=== PATIENT | female | born 1970 | race Caucasian/White ===

== ENCOUNTER → 2022-01-12 | Outpatient (CLI) | payer OTHER, SELFPAY | END | disposition home or self-care (01) | LOC: RAD.FUTURE 17:03 | PROVIDERS: PCP Family Medicine; Visit Provider Specialist | DX: J45.50 Severe persistent asthma, uncomplicated (principal) ==

== ENCOUNTER → 2022-04-13 | Outpatient (CLI) | payer OTHER, SELFPAY ==
[2022-04-13 12:40] LABS: Absolute Lymphocyte Count 0.55 X10^3/uL (0.83-4.51); Absolute Neutrophil Count 2.3 X10^3/uL (2.0-7.7); Basophil# 0.05 X10^3/uL; Basophil% 1.4 % (0-1); Eosinophil# 0.22 X10^3/uL; Eosinophils% 6.1 % (0-5); Hemoglobin 7.4 g/dL (12.0-15.0); Lymphocyte # 0.55 X10^3/ul (0.83-4.51); Lymphocyte % 15.3 % (19-41); Mean Corp Hgb Conc 25.5 g/dL (32-36); Mean Corpuscular Hgb 20.1 pg (27.0-32.0); Mean Corpuscular Volume 78.6 fL (81-99); Mean Platelet Vol. 10.6 fl (6.2-12.0); Monocyte# 0.47 X10^3/uL; Monocyte% 13.1 % (0-10); NRBC Flagged by Analyzer 0 % (0-5); Neutrophil % 63.8 % (47-70); POSITIVE DIFFERENTIAL YES; POSITIVE MORPHOLOGY YES; Platelet Count 166 K/mm3 (150-450); RBC Distribution Width CV 21.3 % (11.6-14.6); RBC Distribution Width SD 58.6 fl (35.1-43.9); Red Blood Count 3.69 M/mm3 (4.2-5.4); White Blood Count 3.6 K/mm3 (4.4-11.0)
[2022-04-13 12:52] LABS: Vitamin B12 302 pg/mL (211-911); Vitamin D,25 Hydroxy 14.9 ng/mL
[2022-04-13 13:00] LABS: Differential Indicated SCAN CRITERIA MET
[2022-04-13 13:14] LABS: ALB/GLOB Ratio 0.7 RATIO (0.9-2.4); AST(SGOT) 37 U/L (15-37); Alanine Aminotransfer ALT/SGPT 21 U/L (13-56); Alkaline Phosphatase 116 U/L (45-117); Anion Gap 8 (5-15); BUN 7 mg/dL (7-18); BUN/Creat Ratio 8.8 RATIO (10-20); CPK Total, Creatine Kinase 27 U/L (26-192); Calcium,Total 8.4 mg/dL (8.5-10.1); Chloride 104 mmol/L (98-107); Cholesterol 135 mg/dL (200); EST Glomerular Filtration Rate 80 mL/min (>60); Est Glom Filt Rate - Afr Amer 97 mL/min (>60); Globulin 4.1 g/dL (2.2-4.2); Glucose 94 mg/dL (74-106); High Density Lipoprotein 56 mg/dL; Magnesium 1.5 mg/dL (1.6-2.6); Potassium 3.9 mmol/L (3.5-5.1); Protein, Total 7.1 g/dL (6.4-8.2); Sodium Level 139 mmol/L (136-145); T4 Free Direct 0.91 ng/dL (0.76-1.46); Thyroid Stim Hormone (TSH) 5.52 uIU/mL (0.358-3.74); Triglycerides 55 mg/dL; Very Low Density Lipoprotein 11 mg/dL (5-40)
[2022-04-13 13:17] LABS: Anisocytosis 2+; Differential Comment SCANNED; Hypochromasia 2+; Macrocytosis 1+; Microcytosis 1+
[2022-04-14 07:21] LABS: Erythrocyte Sedimentation Rate 12 mm/hr (0-30)
[2022-04-14 14:04] LABS: Ferritin 10 ng/mL (8-252); Iron 17 ug/dL (50-170)
[2022-04-15 09:45] LABS: Pathologist Review Reviewed
== END | disposition home or self-care (01) ==
LOC: BFHLAB 09:54
PROVIDERS: PCP Family Medicine; Visit Provider Family Medicine
DX: Z00.00 Encounter for general adult medical examination without abnormal findings (principal); R20.2 Paresthesia of skin; R53.82 Chronic fatigue, unspecified; R25.2 Cramp and spasm; E55.9 Vitamin D deficiency, unspecified
CPT/HCPCS: 36415; 80053; 80061; 82306; 82550; 82607; 82728; 83540; 83735; 84439; 84443; 85025; 85652

== ENCOUNTER → 2022-06-15 | Outpatient (CLI) | payer OTHER, SELFPAY ==
[2022-06-15 18:23] LABS: Ferritin 46 ng/mL (8-252); Iron 12 ug/dL (50-170)
== END | disposition home or self-care (01) ==
LOC: BFHLAB 15:32
PROVIDERS: PCP Family Medicine; Referring Provider Family Medicine; Visit Provider Family Medicine
DX: D64.9 Anemia, unspecified (principal)
CPT/HCPCS: 36415; 82728; 83540

== ENCOUNTER → 2022-06-16 | Outpatient (CLI) | payer OTHER, SELFPAY ==
[2022-06-16 17:58] LABS: Absolute Lymphocyte Count 0.54 X10^3/uL (0.83-4.51); Absolute Neutrophil Count 2.9 X10^3/uL (2.0-7.7); Basophil# 0.02 X10^3/uL; Basophil% 0.5 % (0-1); Eosinophil# 0.11 X10^3/uL; Eosinophils% 2.5 % (0-5); Hematocrit 27.9 % (37-47); Hemoglobin 7.7 g/dL (12.0-15.0); Lymphocyte # 0.54 X10^3/ul (0.83-4.51); Lymphocyte % 12.2 % (19-41); Mean Corp Hgb Conc 27.6 g/dL (32-36); Mean Corpuscular Hgb 21.4 pg (27.0-32.0); Mean Corpuscular Volume 77.5 fL (81-99); Monocyte# 0.87 X10^3/uL; Monocyte% 19.6 % (0-10); NRBC Flagged by Analyzer 0.7 % (0-5); Neutrophil # 2.86 X10^3/uL (2.7-7.7); Neutrophil % 64.3 % (47-70); POSITIVE COUNT YES; POSITIVE DIFFERENTIAL YES; POSITIVE MORPHOLOGY YES; Platelet Count 85 K/mm3 (150-450); RBC Distribution Width CV 22.5 % (11.6-14.6); RBC Distribution Width SD 61.3 fl (35.1-43.9); White Blood Count 4.4 K/mm3 (4.4-11.0)
[2022-06-16 18:12] LABS: Anisocytosis 2+; Differential Comment SCANNED; Differential Indicated SCAN CRITERIA MET
[2022-06-16 18:13] LABS: Microcytosis 1+; Polychromasia RARE
[2022-06-16 18:15] LABS: Vitamin B12 299 pg/mL (211-911)
== END | disposition home or self-care (01) ==
LOC: BFHLAB 15:38
PROVIDERS: PCP Family Medicine; Referring Provider Family Medicine; Visit Provider Family Medicine
DX: D64.9 Anemia, unspecified (principal); R79.89 Other specified abnormal findings of blood chemistry
CPT/HCPCS: 36415; 82607; 84443; 85025

== ENCOUNTER → 2023-02-13 | Outpatient (CLI) | payer OTHER, SELFPAY ==
[2023-02-13 18:01] LABS: Absolute Lymphocyte Count 0.48 X10^3/uL (0.83-4.51); Absolute Neutrophil Count 4.7 X10^3/uL (2.0-7.7); Basophil# 0.06 X10^3/uL; Eosinophil# 0.13 X10^3/uL; Eosinophils% 2.2 % (0-5); Hemoglobin 10.1 g/dL (12.0-15.0); Lymphocyte # 0.48 X10^3/ul (0.83-4.51); Mean Corp Hgb Conc 28.1 g/dL (32-36); Mean Corpuscular Hgb 24.6 pg (27.0-32.0); Mean Corpuscular Volume 87.8 fL (81-99); Mean Platelet Vol. 11.3 fl (6.2-12.0); Monocyte# 0.63 X10^3/uL; Monocyte% 10.5 % (0-10); NRBC Flagged by Analyzer 0 % (0-5); Neutrophil # 4.66 X10^3/uL (2.7-7.7); Neutrophil % 77.8 % (47-70); POSITIVE DIFFERENTIAL YES; Platelet Count 303 K/mm3 (150-450); RBC Distribution Width CV 18.3 % (11.6-14.6); RBC Distribution Width SD 57.8 fl (35.1-43.9)
[2023-02-13 18:19] LABS: ALB/GLOB Ratio 0.8 RATIO (0.9-2.4); AST(SGOT) 34 U/L (15-37); Alanine Aminotransfer ALT/SGPT 33 U/L (13-56); Albumin, Serum 3.4 g/dL (3.2-5.0); Alkaline Phosphatase 147 U/L (45-117); Anion Gap 10 (5-15); BUN 17 mg/dL (7-18); BUN/Creat Ratio 13.2 RATIO (10-20); Calcium,Total 9.1 mg/dL (8.5-10.1); Chloride 101 mmol/L (98-107); Creatinine, Serum 1.29 mg/dL (0.55-1.02); EST Glomerular Filtration Rate 46 mL/min (>60); Est Glom Filt Rate - Afr Amer 55 mL/min (>60); Ferritin 13 ng/mL (8-252); Globulin 4.1 g/dL (2.2-4.2); Glucose 101 mg/dL (74-106); Iron 17 ug/dL (50-170); Magnesium 2.1 mg/dL (1.6-2.6); Potassium 4.1 mmol/L (3.5-5.1); Protein, Total 7.5 g/dL (6.4-8.2); Sodium Level 135 mmol/L (136-145)
[2023-02-13 18:35] LABS: Differential Indicated SCAN CRITERIA MET
[2023-02-13 18:36] LABS: Platelet Estimate ADEQUATE (ADEQ)
[2023-02-13 18:37] LABS: Anisocytosis RARE; Macrocytosis RARE; Red Cell Morphology N CHROM NORMAL (NORM C&C)
[2023-02-15 08:24] LABS: Vitamin B12 147 pg/mL (211-911)
== END | disposition home or self-care (01) ==
LOC: BFHLAB 14:29
PROVIDERS: PCP Nurse Practitioner Family; Visit Provider Nurse Practitioner Family
DX: D50.9 Iron deficiency anemia, unspecified (principal); E53.8 Deficiency of other specified B group vitamins; E55.9 Vitamin D deficiency, unspecified; J45.909 Unspecified asthma, uncomplicated
CPT/HCPCS: 36415; 80053; 82306; 82607; 82728; 83540; 83735; 85025

== ENCOUNTER → 2023-02-20 | Outpatient (CLI) | payer OTHER, SELFPAY ==
--- NOTE | 2023-02-20 12:55 | RAD_ITS ---
STUDY: X-RAY CHEST REASON FOR EXAM: Female, 52 years old. Asthma with Covid. TECHNIQUE: Frontal and lateral views of the chest. COMPARISON: None. FINDINGS: Cardiomegaly, aortic tortuosity with calcification, large right pleural effusion with compression atelectasis of the right middle and lower lobes, left pleural effusion with mild diffuse interstitial pattern of the left lower lobe. No acute or emergent finding. No abnormality of the visualized soft tissue structures of the upper abdomen. RAD/Chest PA and Lateral IMPRESSION: Cardiomegaly with large right pleural effusion as described. No acute or emergent finding. Electronically Signed: Juan Jose Bueno MD at 13:19 EST ,
== END | disposition home or self-care (01) ==
PROVIDERS: PCP Nurse Practitioner Family; Referring Provider Nurse Practitioner Family; Visit Provider Nurse Practitioner Family
DX: R06.02 Shortness of breath (principal); Z87.09 Personal history of other diseases of the respiratory system; Z86.16 Personal history of COVID-19
CPT/HCPCS: 71046

== ENCOUNTER 2023-03-10 14:10 | Inpatient (IN) | payer OTHER, SELFPAY ==
[2023-03-10] VITALS (15 sets, daily range): BP systolic 122–153; BP diastolic 90–109; PULSE 76–138; RESP 17–30; TEMP 36.8–37.2; O2SAT 94–100; BMI 24.4; BMI 23.7
--- NOTE | 2023-03-10 | FLU_PTH ---
PATHOLOGY RESULTS PATIENT: AMA DUNAWAY LOC: [facility] U#:[id number] AGE/SX: 52/F ROOM: [facility] RE03/10/[address]: Dr. Karla Isbell DO : 1970 BED: 1 DIS: 03/12/2023 SPEC #: [id number] RECD: 03/14/23 07:39 STATUS: KRIS REQ #: [id number] MILA: 03/10/23 00:[address]: Karla Isbell DEPT: CYTOLOGY RECD BY: Diana Joyce ENTERED: 03/14/23 07:39 SP TYPE: Fluid OTHR DR: MD Dr. Hilario Feldman MD Dr. Jayaprakas Dasari, MD Dr. Mark Stutzman, Tissues: THORACIC FLUID Procedures: Special Stain Group II Surgery Specimen Level IV Cytospin Fluid HEADER OPERATION: Ultrasound-guided thoracentesis PRE-OP DIAGNOSIS: Pleural effusion TISSUE SUBMITTED: Thoracentesis fluid for cytology DIAGNOSIS CYTOLOGY Thoracentesis fluid for cytology (cytospin and cell block): Negative for malignant cells. See comment. AM:amos 03/15/2023 COMMENT Immunohistochemistry ([id number]) supports the above diagnosis. Case has been reviewed in consultation with Dr. Walker who concurs with the above diagnosis. IDC:AM CYTOLOGY STUDY Slides are reviewed. CYTOLOGY GROSS Received is 75 ml of yellow cloudy fluid labeled with the patient's name and and designated per the requisition as thoracentesis. Submitted for cytology preparation including cell block. / amos 03/14/2023 TC: CPT: 07149, 74981
--- NOTE | 2023-03-10 | IMM_PTH ---
PATHOLOGY RESULTS PATIENT: AMA DUNAWAY LOC: [facility] U#:[id number] AGE/SX: 52/F ROOM: [facility] RE03/10/[address]: Dr. Karla Isbell DO : 1970 BED: 1 DIS: 03/12/2023 SPEC #: [id number] RECD: 03/15/23 14:39 STATUS: SOUT REQ #: [id number] MILA: 03/10/23 00:[address]: Karla Isbell DEPT: IMMUNOHISTOCHEMISTRY RECD BY: Felipa Burgess ENTERED: 03/15/23 14:40 SP TYPE: IMMUNO OTHR DR: MD Dr. Hilario Feldman MD Dr. Jayaprakas Dasari, MD Dr. Mark Stutzman, Tissues: THORACIC FLUID Procedures: Sudhir Ret (add) CK20 (add) CK5-6 (add) CK7 (add) KI-67 (add) P53 (add) Pankeratin (initial) P40 (add) CD68 (ADD) PHYSICIAN & [place] [id number] SPECIMEN INFORMATION: Tissue Source: Thoracentesis fluid Clinical Info: Pleural effusion Specimen Number: [id number] CPT code: 45500, 52035 x8 METHODOLOGY: Deparaffinized sections of prefer/formalin-fixed tissue or PAP/DQ stained slides are incubated with monoclonal/polyclonal antibodies/oligonucleotide probes. Localization is made via biotin free immunoperoxidase method. Appropriate controls are performed and reacted as expected. Results on target cell population are indicated in the following table: RESULTS: ANTIBODY / CLONE RESULT AE1-3 (AE1/AE3/PCK26) negative * CK7 (OV-TL12/30) negative * CK20 (KS20.8) negative CD68 (KP-1) negative (positive in macrophages) CALRET (polyclonal) negative * CK5-6 (D5 & 1684) negative * P40 (BC28) negative P53 (DO-7) negative Ki-67 (30-9) positive, low * positive in mesothelial cells. These tests were developed and their performance characteristics determined by [facility]. They may not have been cleared or approved by the U.S. Food and Drug Administration. The FDA has determined that such clearance or approval is not necessary. The above immunohistochemical/dualISH markers are ordered by Dr. Masters and reviewed by the Pathologist. INTERPRETATION: Thoracentesis fluid (cell block): Negative for malignant cells. SJ:amos 03/17/2023
--- NOTE | 2023-03-10 14:55 | EKG12_ITS ---
Test Reason : SOB Blood Pressure : / mmHG Vent. Rate : 137 BPM Atrial Rate : 137 BPM P-R Int : 136 ms QRS Dur : 092 ms QT Int : 312 ms P-R-T Axes : 000 105 016 degrees QTc Int : 471 ms Sinus tachycardia Rightward axis Nonspecific ST and T wave abnormality Abnormal ECG Confirmed by SPRING AL, KACIE ([id number]), scientific publications editor RONI LEA ([id number]) on 03/14/2023 8:26:38 AM Referred By: Hilario Al Confirmed By:KACIE LONDONO MD
--- NOTE | 2023-03-10 14:57 | ED.VIS.DYS ---
HPI History of Present Illness Chief Complaint: Shortness of Breath Informant: patient Narrative Narrative: Patient states she has been diagnosed with asthma as a result of COVID several years ago; she states she did not have asthma or pulmonary issues prior to COVID. She has been short of breath with wheezing and chest tightness for about a month. It is getting worse. For longer than that, she has been getting swelling in her legs and now feels like it is in her abdomen as well. She has orthopnea and PND. She states she is following with a nurse practitioner who put her on about a 2-week taper of prednisone, started about 4 weeks ago, did not seem to help anything and maybe made things worse, she is just about to obtain her next prescription for prednisone that is currently at the pharmacy. She states she was checking her pulse ox as she was getting very short of breath yesterday and today, she was in the 70%. She is not on home oxygen. She states that she had a chest x-ray showing some water on the lung and she was sent for outpatient testing including a repeat x-ray today, but when she was there to get testing they were checking her vital signs because she was very dyspneic and she was 65% on room air so they deferred her to the ER without doing any of the testing. [facility] Medical History Anxiety Asthma Hx of Hodgkins lymphoma Home Medications albuterol sulfate 2.5 mg/3 mL (0.083 %) solution for nebulization 2.5 mg continuous nebulization Q8H PRN shortness of breath or wheezing 03/10/23 [History Last Taken Unknown] cholecalciferol (vitamin D3) 1,250 mcg (50,000 unit) capsule 1,250 mcg PO QWEEK SUPPLEMENT 03/10/23 [History Last Taken Unknown] fluticasone furoate 100 mcg-vilanterol 25 mcg/dose inhalation powder (Breo Ellipta) 1 inh inhalation DAILY SHORTNESS OF BREATH/WHEEZING 03/10/23 [History Last Taken Unknown] montelukast 5 mg chewable tablet 5 mg PO QPM ASTHMA 03/10/23 [History Last Taken Unknown] sertraline 50 mg tablet 50 mg PO DAILY DEPRESSION 03/10/23 [History Last Taken Unknown] Allergy/AdvReac Type Severity Reaction Status Date / Time No Known Allergies Allergy Verified 03/10/23 14:10 Surgical History Hx of section Social History Smoking Status: Former smoker ROS ROS ED Constitutional Constitutional ED: Reports fatigue; Denies chills or fever(s) Eyes Eyes: Denies change in vision or diplopia ENT ENT ED: Denies rhinorrhea or sore throat Cardiovascular Cardiovascular: Reports leg edema, orthopnea and paroxysmal nocturnal dyspnea; Denies chest pain or palpitations Respiratory/Chest Respiratory/Chest: Reports chest tightness, cough, dyspnea, dyspnea on exertion, orthopnea and paroxysmal nocturnal dyspnea; Denies sputum Gastrointestinal Gastrointestinal: Reports other Details: abd distension ; Denies abdominal pain, diarrhea, nausea or vomiting Genitourinary Genitourinary ED: Denies dysuria or hematuria Musculoskeletal Musculoskeletal: Denies back pain or neck pain Integumentary Denies abscess or rash Neurologic Neurologic: Denies headache(s), paresthesias or weakness Psychiatric Psychiatric: Denies anxiety or suicidal thoughts EXAM Physical Exam Const Vital Signs: 03/10/23 14:13 03/10/23 14:51 03/10/23 14:15 Temperature 98.9 F 98.9 F Temperature Source Temporal Temporal Pulse Rate 136 H 138 H 136 H Respiratory Rate 28 H 30 H 28 H Respiratory Effort Respiratory Depth Respiratory Pattern Blood Pressure 135/103 H 141/109 H 135/103 H Blood Pressure Mean 113 119 113 Pulse Ox 96 98 96 Oxygen Delivery Method Room Air Room Air Room Air 03/10/23 14:53 03/10/23 14:59 03/10/23 15:12 Temperature Temperature Source Pulse Rate 137 H Respiratory Rate 28 H Respiratory Effort Short of Breath Respiratory Depth Shallow Respiratory Pattern Tachypnea Blood Pressure Blood Pressure Mean Pulse Ox 99 Oxygen Delivery Method Room Air 03/10/23 15:28 03/10/23 16:10 Temperature Temperature Source Pulse Rate 137 H Respiratory Rate 19 H Respiratory Effort Respiratory Depth Respiratory Pattern Blood Pressure 153/107 H Blood Pressure Mean 122 Pulse Ox 99 97 Oxygen Delivery Method Room Air Room Air Positive well nourished and well developed General Appearance ED: well developed and NAD HEENT Reports moist mucous membranes normocephalic and atraumatic Eyes PERRL and EOMs intact bilaterally Neck full ROM, supple and no JVD Resp Resp Narrative: Conversational dyspnea. Diffuse expiratory wheezes. No distress. Cardio regular rate and regular rhythm Rate: tachycardic GI non-tender GI Narrative: distended Auscultation: normoactive bowel sounds Palpation: soft Back/Spine no CVA tenderness General Back: other FROM Extremity normal to inspection General Extremety ED: Yes edema; Negative for pulses abnormal or tenderness General Extremity: edema bilateral lower extremity Details: moderate (symmetric); Negative for pulses abnormal Neuro oriented x3, CN's II-XII intact bilaterally and no sensory deficits noted Sensorium / Orientation: awake and alert Motor Exam: strength 5/5 throughout Psych mental status grossly normal Skin no rashes or lesions noted and no wounds MDM MDM MDM Narrative Medical decision making narrative: My concern is that this patient is fluid overloaded and that is what is causing her abdominal distention. She does not have peau d'orange appearance of the abdominal wall, so I plan on imaging her abdomen/pelvis to see if she has ascites, but before that I am running a D-dimer to see if she needs a CTA of the chest in addition to a two-view chest x-ray which we started with, along with some IV Lasix. 2 view chest x-ray today, on my interpretation shows slightly larger, large right pleural effusion, superimposed on top of cephalization/CHF and what appears to be cardiomegaly. Her kidney function is a little worse than it was earlier this month now 1.51 creatinine. Potassium is low at 3.0 likely because she has been taking Lasix recently without potassium supplementation. BNP is elevated as is D-dimer. Therefore when I sent her to CT, I sent her for CT angiography of the chest as well as CT of the abdomen/pelvis with IV contrast all simultaneously for further evaluation as to whether she has ascites, abdominal wall edema, recurrence of her non-Hodgkin's lymphoma, etc, and to characterize the effusion and cardiomegaly and evaluate for a pericardial effusion, and evaluate for pulmonary embolus with regards to the chest. I reviewed the CT chest and abdomen/pelvis images, spoke with the radiologist about the results, and read the results which I agree with. Basically it shows pulmonary emboli, pleural effusion which we were able to get interventional radiology to tap before the scan, along with some re-inflation related changes of the lung, and a small to moderate pericardial effusion. Clinically she is not in acute pericardial tamponade. Discussed with hospitalist we are starting heparin. She does not require mechanical ventilation since she had the thoracentesis and is breathing a little better. Plan will be for admission. Patient did ask us to check her urine because she had an episode of hematuria a day or 2 ago. We see evidence of that on the urine but no signs of infection. I will continue to be monitored while she is anticoagulated. History & Record Review Additional record(s) reviewed:: Prior labs (Earlier in this month, and chest x-ray also showing large right pleural effusion and cardiomegaly) Lab Data Attestation: I reviewed the patient's lab results. Labs: Laboratory Results - last 24 hr 03/10/23 03/10/23 15:14 16:01 WBC 8.4 RBC 5.06 Hgb 12.3 Hct 43.2 MCV 85.4 MCH 24.3 L MCHC 28.5 L RDW Std Deviation 57.2 H RDW Coeff of Endy 19.1 H Plt Count 309 MPV 10.2 Immature Gran % (Auto) 0.500 Neut % (Auto) 80.0 H Lymph % (Auto) 8.8 L [place] % (Auto) 9.5 Eos % (Auto) 1.0 Baso % (Auto) 0.2 Absolute Neuts (auto) 6.7 Absolute Lymphs (auto) 0.74 L Nucleated RBC % 0 D-Dimer Quant (PE/DVT) 1.80 H* Sodium 136 Potassium 3.0 L Chloride 100 Carbon Dioxide 27.0 Anion Gap 9 BUN 17 Creatinine 1.51 H Estim Creat Clear Calc 41.90 Est GFR (MDRD) Af Amer 46 L Est GFR (MDRD) Non-Af 38 L BUN/Creatinine Ratio 11.3 Glucose 120 H Calcium 9.0 Troponin I High Sens 26 B-Natriuretic Peptide 628.2 H Urine Color Yellow Urine Clarity Sl. Cloudy Urine pH 5.0 Ur Specific [place] 1.025 Urine Protein 30 H Urine Glucose (UA) Normal Urine Ketones 5 H Urine Occult Blood 250 H Urine Nitrite Negative Urine Bilirubin 1 H Urine Urobilinogen 1 H Ur Leukocyte Esterase 100 H Urine RBC 50-100 SEEN Urine WBC 5-10 SEEN Ur Squamous Epith Cells 10-25 SEEN Urine Bacteria 1+ Urine Mucus 0 SEEN Radiography Diagnostic Testing: Clinical Impression(s) from Imaging Studies Chest X-Ray 03/10/23 15:30 IMPRESSION: Grossly stable large right pleural effusion. Cardiomegaly. Electronically Signed: Cortney Whitehead MD at 15:44 EST , Abdomen/Pelvis CT 03/10/23 16:23 IMPRESSION: 1. Right lower lobe segmental and subsegmental pulmonary artery emboli are identified. Possible small segmental right middle lobe pulmonary artery emboli are also identified. 2. Decreased size of right side pleural effusion, now moderate with patchy airspace disease in the right lung which may be in part reinflation edema and/or atelectasis versus pneumonia. 3. Small to medium left pleural effusion with minimal airspace disease, also perhaps atelectasis or pneumonia and likely minimal pulmonary edema. 4. Small to medium pericardial effusion and mild cardiomegaly. 5. Small to medium volume ascites of uncertain etiology. 6. Mild body wall edema/anasarca. 7. The left tubal ligation clip is in an expected location. There is a right-sided ligation clip in the superior peritoneum posterior to the liver. Electronically Signed: Cuba Silva DO at 17:52 EST , Chest CTA 03/10/23 16:23 IMPRESSION: 1. Right lower lobe segmental and subsegmental pulmonary artery emboli are identified. Possible small segmental right middle lobe pulmonary artery emboli are also identified. 2. Decreased size of right side pleural effusion, now moderate with patchy airspace disease in the right lung which may be in part reinflation edema and/or atelectasis versus pneumonia. 3. Small to medium left pleural effusion with minimal airspace disease, also perhaps atelectasis or pneumonia and likely minimal pulmonary edema. 4. Small to medium pericardial effusion and mild cardiomegaly. 5. Small to medium volume ascites of uncertain etiology. 6. Mild body wall edema/anasarca. 7. The left tubal ligation clip is in an expected location. There is a right-sided ligation clip in the superior peritoneum posterior to the liver. Electronically Signed: Cuba Silva DO at 17:51 EST , Chest X-Ray 03/10/23 17:12 IMPRESSION: 1. Decreased size of right pleural effusion since prior examination with improved aeration of the right lung. Moderate degree of atelectasis and/or pneumonia in the right lung and residual small to medium pleural fluid. 2. Small to medium left pleural effusion with minimal airspace disease, perhaps atelectasis or pneumonia. 3. Cardiomegaly and small pericardial effusion better demonstrated on comparison examination. Electronically Signed: Cuba Silva DO at 17:44 EST , Rhythm Strip Rhythm Strip: Sinus Tach Rate: 130 Ectopy: None EKG Initial EKG: Attestation: I personally reviewed and interpreted this EKG as follows: Interpretation: No Acute Injury Pattern and Sinus Tachycardia Comments: Low voltage. No electrical alternans. Rightward axis. Prior EKG tracings: not available for review Prior: No Prior Management Discussion w/another healthcare provider: Hospitalist and Radiologist Discharge Plan Dx/Rx/DC Orders Clinical Impression: CHIDI (acute kidney injury), Acute hypoxic respiratory failure, Acute CHF, Pleural effusion on right, Pulmonary embolism Disposition Disposition: Acute Care [facility]
[2023-03-10] MEDS: Ipratropium/Albuterol Sulfate 3 ML AMPUL.NEB INHALATION (15:12)
[2023-03-10 15:24] LABS: Absolute Lymphocyte Count 0.74 X10^3/uL (0.83-4.51); Absolute Neutrophil Count 6.7 X10^3/uL (2.0-7.7); Basophil# 0.02 X10^3/uL; Basophil% 0.2 % (0-1); Eosinophil# 0.08 X10^3/uL; Hematocrit 43.2 % (37-47); Hemoglobin 12.3 g/dL (12.0-15.0); Lymphocyte # 0.74 X10^3/ul (0.83-4.51); Lymphocyte % 8.8 % (19-41); Mean Corp Hgb Conc 28.5 g/dL (32-36); Mean Corpuscular Hgb 24.3 pg (27.0-32.0); Mean Corpuscular Volume 85.4 fL (81-99); Mean Platelet Vol. 10.2 fl (6.2-12.0); Monocyte% 9.5 % (0-10); NRBC Flagged by Analyzer 0 % (0-5); Neutrophil # 6.72 X10^3/uL (2.7-7.7); Platelet Count 309 K/mm3 (150-450); RBC Distribution Width CV 19.1 % (11.6-14.6); RBC Distribution Width SD 57.2 fl (35.1-43.9); Red Blood Count 5.06 M/mm3 (4.2-5.4); White Blood Count 8.4 K/mm3 (4.4-11.0)
--- NOTE | 2023-03-10 15:30 | RAD_ITS ---
INDICATION: Shortness of breath EXAMINATION/TECHNIQUE: X-RAY - XR Chest 2 Views COMPARISON: February 20, 2023 FINDINGS: LINES/DEVICES: None. LUNGS: There is a grossly stable large right pleural effusion. No pneumothorax. MEDIASTINUM AND CARDIOVASCULAR STRUCTURES: There is cardiomegaly. Central airways and mediastinal contour are unremarkable. BONES AND SOFT TISSUES: Unremarkable. RAD/Chest PA and Lateral IMPRESSION: Grossly stable large right pleural effusion. Cardiomegaly. Electronically Signed: Cortney Whitehead MD at 15:44 EST ,
--- NOTE | 2023-03-10 15:35 | ED.RN ---
Per Dr. Al hold off on Nitro at this time.
[2023-03-10 15:36] LABS: BNP,B-Type NATRIURETIC PEPTIDE 628.2 pg/mL (0-100)
[2023-03-10 15:38] LABS: Anion Gap 9 (5-15); BUN 17 mg/dL (7-18); BUN/Creat Ratio 11.3 RATIO (10-20); Chloride 100 mmol/L (98-107); Creatinine, Serum 1.51 mg/dL (0.55-1.02); EST Glomerular Filtration Rate 38 mL/min (>60); Est Glom Filt Rate - Afr Amer 46 mL/min (>60); Glucose 120 mg/dL (74-106); Sodium Level 136 mmol/L (136-145); Troponin-I HS 26 pg/mL (3.0-54.0)
[2023-03-10] MEDS: Furosemide 40 MG/4 ML Vial IV ×2 (15:56→20:23)
[2023-03-10 16:06] LABS: Mucous, Urine 0 SEEN /hpf (<or=2+)
--- NOTE | 2023-03-10 16:08 | HP.PCM.HOS_ITS ---
HPI - General General Date of Admission: 03/10/23 Date of Service: 03/10/23 Chief Complaint: Dyspnea, orthopnea, weight gain. HPI Narrative The patient is a 52 y/o F w/ PMHx: Asthma, Anxiety, Hx Hodgkins lymphoma, Former tobacco use who presents to the [facility] [place] ED on 03/10/23 with history of persistent dyspnea with occasional wheezing and chest tightness over the last month however it has been worsening with increasing swelling to her legs with orthopnea and PND with evaluation 4 weeks prior with a significant 2-week prednisone taper with no marked improvement with recent rediscussions and potential renewed steroid taper with self pulse oximeter check when she was out of breath the day prior to current presentation reportedly 70% with outpatient chest x-ray with concern for overload prompting referral and while obtaining her plain film with vital sign assessment she was noted to be dyspneic with vital signs notable for 65% on room air prompting ED referral. She does report recent initiation of Lasix. Workup in the ED included T98.9, heart rate 136, BP 135/103, respiratory rate 28, 96% on room air, CBC with WBC 8.4, hemoglobin 12.3, platelet 309 with lymphopenia, BMP with potassium 3.0, BUN/creatinine 17/1.51, glucose 120, tr oponin 26, BNP 628.2, EKG with sinus tachycardia with no acute evidence of ischemia, CTPA/CT A/P pending upon evaluation of patient. In the ED patient ministered DuoNeb therapy, sublingual nitroglycerin and Lasix 40 mg IV x 1. [facility] Medical History (Updated 03/10/23 @ 18:[address] Yadira Wiggins MD) Anxiety Asthma Former tobacco use Hx of Hodgkins lymphoma Home Medications albuterol sulfate 2.5 mg/3 mL (0.083 %) solution for nebulization 2.5 mg continuous nebulization Q8H PRN shortness of breath or wheezing 03/10/23 [History Last Taken Unknown] cholecalciferol (vitamin D3) 1,250 mcg (50,000 unit) capsule 1,250 mcg PO QWEEK SUPPLEMENT 03/10/23 [History Last Taken Unknown] fluticasone furoate 100 mcg-vilanterol 25 mcg/dose inhalation powder (Breo Ellipta) 1 inh inhalation DAILY SHORTNESS OF BREATH/WHEEZING 03/10/23 [History Last Taken Unknown] montelukast 5 mg chewable tablet 5 mg PO QPM ASTHMA 03/10/23 [History Last Taken Unknown] sertraline 50 mg tablet 50 mg PO DAILY DEPRESSION 03/10/23 [History Last Taken Unknown] Allergy/AdvReac Type Severity Reaction Status Date / Time No Known Allergies Allergy Verified 03/10/23 14:10 Family History (Updated 03/10/23 @ 18:[address] Yadira Wiggins MD) Mother Heart disease Hypertension Father Heart disease Hypertension CVA (cerebral vascular accident) Surgical History (Updated 03/10/23 @ 18:[address] Yadira Wiggins MD) History of vascular surgery Hx of section Social History (Updated 03/10/23 @ 18:[address] Yadira Wiggins MD) household members: spouse Smoking Status: Former smoker alcohol intake: never substance use type: does not use ROS ROS Narrative Admission Review of Systems: CONSTITUTIONAL: No weight loss, fever, chills, + weakness or fatigue. HEENT: Eyes: No visual loss, blurred vision, double vision or yellow sclerae. Ears, Nose, Throat: No hearing loss, sneezing, congestion, runny nose or sore throat. SKIN: No rash or itching, lesions, wounds. CARDIOVASCULAR: + Edema, weight gain, orthopnea, PND. No chest pain, chest pressure or chest discomfort, palpitations, syncopal events. RESPIRATORY: + Shortness of breath, occasional wheezing, occasional nonproductive cough. No marked sputum production, hemoptysis. GASTROINTESTINAL: No anorexia, nausea, vomiting or diarrhea, abdominal pain, melena, BRBPR. GENITOURINARY: No dysuria, frequency, urgency or retention. NEUROLOGICAL: No headache, dizziness, syncope, paralysis, ataxia, numbness or tingling in the extremities, focal weakness, change in bowel or bladder control, seizure. MUSCULOSKELETAL: + muscle, back pain, joint pain or stiffness. HEMATOLOGIC: No anemia, bleeding or bruising. LYMPHATICS: No enlarged nodes. No history of splenectomy. PSYCHIATRIC: + history of depression and anxiety. ENDOCRINOLOGIC: No reports of sweating, cold or heat intolerance. No polyuria or polydipsia. ALLERGIES: + History of asthma, allergic rhinitis. Vital Signs Vital Signs Vital Signs: 03/10/23 14:13 03/10/23 14:51 03/10/23 14:15 Temperature 98.9 F 98.9 F Temperature Source Temporal Temporal Pulse Rate 136 H 138 H 136 H Respiratory Rate 28 H 30 H 28 H Respiratory Effort Respiratory Depth Respiratory Pattern Blood Pressure 135/103 H 141/109 H 135/103 H Blood Pressure Mean 113 119 113 Pulse Ox 96 98 96 Oxygen Delivery Method Room Air Room Air Room Air 03/10/23 14:53 03/10/23 14:59 03/10/23 15:12 Temperature Temperature Source Pulse Rate 137 H Respiratory Rate 28 H Respiratory Effort Short of Breath Respiratory Depth Shallow Respiratory Pattern Tachypnea Blood Pressure Blood Pressure Mean Pulse Ox 99 Oxygen Delivery Method Room Air 03/10/23 15:28 Temperature Temperature Source Pulse Rate Respiratory Rate Respiratory Effort Respiratory Depth Respiratory Pattern Blood Pressure Blood Pressure Mean Pulse Ox 99 Oxygen Delivery Method Room Air Weight Weight: 156 lb Body Mass Index (BMI) 24.4 Physical Exam Narrative Physical Examination: General: Awake, alert, oriented x 3 and cooperative, seated upright in the ED bed, anxious, fatigued appearing. Skin: Normal color, normal turgor, no icterus, no cyanosis. HEENT: AT/NC, EOMI, PERRLA, MMM, no carotid bruits, + JVD noted. Lungs: Diminished, significantly more so right sided in all tracey, expiratory occasional wheeze, rales, mildly increased respiratory rate but no distress. Heart: Tachycardic with regular; no gallop, rub audible. Abdomen: Soft, NTTP, ND, hyperactive BS, unable to appreciate HSM. Extremities: No cyanosis, no clubbing, bilateral pedal to lower abdominal pitting edema. Neurological: Patient awake, alert, oriented as noted, cognitive function intact; pupils equally reactive to light and accommodation, cranial nerves grossly normal, moving all 4 extremities, no focal deficits, strength severely globally decreased secondary to acute presentation. Psychiatric: Affect appears anxious, fatigued, does have underlying history of anxiety and depression. Results Lab / Micro Data 03/10/23 15:14 03/10/23 15:14 Labs: Laboratory Results - last 24 hr 03/10/23 15:14: WBC 8.4, RBC 5.06, Hgb 12.3, Hct 43.2, MCV 85.4, MCH 24.3 L, MCHC 28.5 L, RDW Std Deviation 57.2 H, RDW Coeff of Endy 19.1 H, Plt Count 309, MPV 10.2, Immature Gran % (Auto) 0.500, Neut % (Auto) 80.0 H, Lymph % (Auto) 8.8 L, B[place] % (Auto) 9.5, Eos % (Auto) 1.0, Baso % (Auto) 0.2, Absolute Neuts (auto) 6.7, Absolute Lymphs (auto) 0.74 L, Nucleated RBC % 0, Sodium 136, Potassium 3.0 L, Chloride 100, Carbon Dioxide 27.0, Anion Gap 9, BUN 17, Creatinine 1.51 H, Estim Creat Clear Calc 41.90, Est GFR (MDRD) Af Amer 46 L, Est GFR (MDRD) Non-Af 38 L, BUN/Creatinine Ratio 11.3, Glucose 120 H, Calcium 9.0, Troponin I High Sens 26, B-Natriuretic Peptide 628.2 H Rhythm Strip Rhythm Strip: Sinus Tach Rate: 130 Ectopy: None Imagaing Radiology Impression Chest X-Ray 03/10/23 15:30 IMPRESSION: Grossly stable large right pleural effusion. Cardiomegaly. Electronically Signed: Cortney Whitehead MD at 15:44 EST , Assessment & Plan Assessment/Plan (1) Acute CHF: PLAN: Plan The patient is a 52 y/o F w/ PMHx: Asthma, Anxiety, Hx Hodgkins lymphoma, Former tobacco use who presents to the [facility] [place] ED on 03/10/23 with history of persistent dyspnea with occasional wheezing and chest tightness over the last month however it has been worsening with increasing swelling to her legs with orthopnea and PND with evaluation 4 weeks prior with a significant 2-week prednisone taper with no marked improvement with recent re-discussions and potential renewed steroid taper with self pulse oximeter check when she was out of breath the day prior to current presentation reportedly 70% with outpatient chest x-ray with concern for overload prompting referral and while obtaining her plain film with vital sign assessment she was noted to be dyspneic with vital signs notable for 65% on room air prompting ED referral. #1. Acute Hypoxia (noted outpatient) secondary to Acute Decompensated HF unclear type with exacerbation with large right pleural effusion and cardiomegaly w/ noted Dyspnea, orthopnea, increasing peripheral edema, worsening: Patient administered IV lasix in the ED, will admit to PCU, maintain on cardiac telemetry, obtain cardiac enzyme series, obtain serial EKGs, continue IV lasix diuresis and given BP elevated above goal but not significantly so will prioritize this but once able start with BB addition, add baby asa, monitor I/ Os, will obtain TSH and magnesium level, add statin pending FLP in AM. Will request echocardiogram. Will request radiology directed right-sided thoracentesis with fluid assessments also. Given unclear timeline of thoracentesis we will hold off on chemoprophylaxis however if this will not occur until Monday then may initiate chemoprophylactic regimen up through Monday to Monday or if able to arrange for today then add for AM. If CTPA is notable for any emboli will start heparin drip give noted above. #2. Possible Chronic Kidney Disease Stage III unclear subtype based on GFR trending however these labs are both 02/2023 including initial 02/13/2023 and current presentation, prior to this 04/13/2022 GFR trending at that time 80 consistent with stage II this could be acute renal insufficiency on CKD stage II but unclear: Admission BUN/Cr /1.51, baseline renal function in 05/05 creatinine 0.8 however more recently 02/13/2023 creatinine 1.29 and risen again today as noted, repeat BMP in AM. #3. Elevated BP without hypertensive diagnosis: BP upon ED arrival elevated above goal, per current list does not have any hypertensive history and not on any hypertensive regimen, currently will prioritize IV Lasix but given history may necessitate addition of BB, MATTHEW inhibitor/ARB. IV hydralazine in interim. #4. Hypokalemia: Admission K+ 3.0, magnesium level requested, supplementation given, repeat level in AM. #5. Chronic asthma: Despite large effusion patient currently maintained on room air, continue to monitor and if desaturates will supplement with oxygen with wean as tolerated to room air, given presentation complaints will maintain on ATC budesonide therapy especially given tachycardia, if absolutely necessary will have PRN albuterol, HOB, IS parameters. #6. Anxiety: Per current regimen list not on any regimen, encourage continued outpatient follow-up and assessment/counseling as needed. #7. Former tobacco use: Encourage continued tobacco cessation. #8. History of Hodgkin's lymphoma: s/p remote diagnosis at age 17, treated with chemotherapy, considered in remission. #9. DVT prophylaxis: As noted still awaiting discussions with radiology to ascertain if possible thoracentesis available today otherwise would not be potentially until Monday, will add chemoprophylaxis if this would be delayed or able to expedite will add in AM. If CTPA is notable for any emboli will start heparin drip give noted above. #10. CODE status: Patient HCPOA being will are not in place however would be her decision-maker. Discussed CODE status at length including d ifference between FULL code, DNR-CCA and DNR-CC status. Following discussions about the differences in these status, requested Full Code status. Advanced Care Planning Face to Face Time: 16 minutes. Charges/Coding Visit Charges Inpatient E&M: 87318 Init Hosp L3 Procedures Hospitalists Procedures: 68665 Advncd Care Plan 30 Min
--- NOTE | 2023-03-10 16:23 | CT_ITS ---
EXAM: CT ANGIOGRAPHY CHEST AND CT ABDOMEN AND PELVIS WITHOUT AND WITH INTRAVENOUS CONTRAST CLINICAL INDICATION: sob, elevated d-dimer, Hodgkin''s lymphoma. TECHNIQUE: Helically acquired angiography images of the chest per pulmonary angiogram protocol and helically acquired images of the abdomen and pelvis without and with intravenous contrast. This CT exam was performed using one or more of the following dose reduction techniques: automated exposure control, adjustment of the mA and/or kV according to patient size, and/or use of iterative reconstruction technique. MIP reconstructed images were created and reviewed. CONTRAST: IV 100mL Isovue-370 COMPARISON: Chest radiograph, 03/10/2023 at multiple instances. FINDINGS: CHEST: PULMONARY ARTERIES: Right lower lobe segmental and subsegmental pulmonary artery emboli are identified. Possible small segmental right middle lobe pulmonary artery emboli are also identified. AORTA: Atherosclerosis. No aortic aneurysm or dissection. GREAT VESSELS OF AORTIC ARCH: No significant abnormality. Normal in caliber. No evidence of dissection. LUNGS AND PLEURAL SPACES: Decreased size of right side pleural effusion, now moderate with patchy airspace disease in the right lung which may be in part reinflation edema and/or atelectasis versus pneumonia. Small to medium left pleural effusion with minimal airspace disease, also perhaps atelectasis or pneumonia and likely minimal pulmonary edema. No mass. HEART: Small to medium pericardial effusion and mild cardiomegaly. Coronary artery calcifications. MEDIASTINUM: No significant abnormality. No mediastinal or hilar adenopathy. Esophagus is unremarkable. No hiatal hernia. THYROID: No significant abnormality. No thyroid lesions. ABDOMEN: LIVER: No significant abnormality. Homogeneous. No focal mass. GALLBLADDER AND BILE DUCTS: No significant abnormality. No calcified gallstones. No gallbladder distention or wall edema. No intra- or extrahepatic biliary ductal dilation. PANCREAS: No significant abnormality. No focal cystic or solid mass. SPLEEN: No significant abnormality. Normal size without focal cystic or solid mass. ADRENALS: No significant abnormality. No nodules. KIDNEYS AND URETERS: No significant abnormality. Normal renal size and position. No hydronephrosis. STOMACH AND BOWEL: Colonic diverticulosis without evidence of diverticulitis. No stomach or bowel distention. PELVIS: APPENDIX: No evidence of acute appendicitis. BLADDER: No significant abnormality. REPRODUCTIVE: The left tubal ligation clip is in a expected location. There is a right-sided ligation clip in the superior peritoneum posterior to the liver. CHEST, ABDOMEN and PELVIS: INTRAPERITONEAL SPACE: Small to medium volume ascites of uncertain etiology. No free air. BONES/JOINTS: Degenerative changes in the visualized axial and appendicular skeleton. No suspicious lytic or blastic abnormality. SOFT TISSUES: Mild body wall edema/anasarca. No discrete abdominal or pelvic wall hernia. VASCULATURE: See above. Atherosclerosis. LYMPH NODES: No significant abnormality. No enlarged lymph nodes. CT/Abdomen/Pelvis W IV Cont ONLY IMPRESSION: 1. Right lower lobe segmental and subsegmental pulmonary artery emboli are identified. Possible small segmental right middle lobe pulmonary artery emboli are also identified. 2. Decreased size of right side pleural effusion, now moderate with patchy airspace disease in the right lung which may be in part reinflation edema and/or atelectasis versus pneumonia. 3. Small to medium left pleural effusion with minimal airspace disease, also perhaps atelectasis or pneumonia and likely minimal pulmonary edema. 4. Small to medium pericardial effusion and mild cardiomegaly. 5. Small to medium volume ascites of uncertain etiology. 6. Mild body wall edema/anasarca. 7. The left tubal ligation clip is in an expected location. There is a right-sided ligation clip in the superior peritoneum posterior to the liver. Electronically Signed: Cuba Silva DO at 17:52 EST ,
--- NOTE | 2023-03-10 16:23 | CT_ITS ---
We are attempting to reach an attending provider to discuss findings. An addendum with communication details will be sent when the communication is complete. EXAM: CT ANGIOGRAPHY CHEST AND CT ABDOMEN AND PELVIS WITHOUT AND WITH INTRAVENOUS CONTRAST CLINICAL INDICATION: sob, elevated d-dimer TECHNIQUE: Helically acquired angiography images of the chest per pulmonary angiogram protocol and helically acquired images of the abdomen and pelvis without and with intravenous contrast. This CT exam was performed using one or more of the following dose reduction techniques: automated exposure control, adjustment of the mA and/or kV according to patient size, and/or use of iterative reconstruction technique. MIP reconstructed images were created and reviewed. CONTRAST: IV 100mL Isovue-370 COMPARISON: Chest radiograph, 03/10/2023 at multiple instances. FINDINGS: CHEST: PULMONARY ARTERIES: Right lower lobe segmental and subsegmental pulmonary artery emboli are identified. Possible small segmental right middle lobe pulmonary artery emboli are also identified. AORTA: Atherosclerosis. No aortic aneurysm or dissection. GREAT VESSELS OF AORTIC ARCH: No significant abnormality. Normal in caliber. No evidence of dissection. LUNGS AND PLEURAL SPACES: Decreased size of right side pleural effusion, now moderate with patchy airspace disease in the right lung which may be in part reinflation edema and/or atelectasis versus pneumonia. Small to medium left pleural effusion with minimal airspace disease, also perhaps atelectasis or pneumonia and likely minimal pulmonary edema. No mass. HEART: Small to medium pericardial effusion and mild cardiomegaly. Coronary artery calcifications. MEDIASTINUM: No significant abnormality. No mediastinal or hilar adenopathy. Esophagus is unremarkable. No hiatal hernia. THYROID: No significant abnormality. No thyroid lesions. ABDOMEN: LIVER: No significant abnormality. Homogeneous. No focal mass. GALLBLADDER AND BILE DUCTS: No significant abnormality. No calcified gallstones. No gallbladder distention or wall edema. No intra- or extrahepatic biliary ductal dilation. PANCREAS: No significant abnormality. No focal cystic or solid mass. SPLEEN: No significant abnormality. Normal size without focal cystic or solid mass. ADRENALS: No significant abnormality. No nodules. KIDNEYS AND URETERS: No significant abnormality. Normal renal size and position. No hydronephrosis. STOMACH AND BOWEL: Colonic diverticulosis without evidence of diverticulitis. No stomach or bowel distention. PELVIS: APPENDIX: No evidence of acute appendicitis. BLADDER: No significant abnormality. REPRODUCTIVE: The left tubal ligation clip is in a expected location. There is a right-sided ligation clip in the superior peritoneum posterior to the liver. CHEST, ABDOMEN and PELVIS: INTRAPERITONEAL SPACE: Small to medium volume ascites of uncertain etiology. No free air. BONES/JOINTS: Degenerative changes in the visualized axial and appendicular skeleton. No suspicious lytic or blastic abnormality. SOFT TISSUES: Mild body wall edema/anasarca. No discrete abdominal or pelvic wall hernia. VASCULATURE: See above. Atherosclerosis. LYMPH NODES: No significant abnormality. No enlarged lymph nodes. CT/CTA Chest W/WO Contrast IMPRESSION: 1. Right lower lobe segmental and subsegmental pulmonary artery emboli are identified. Possible small segmental right middle lobe pulmonary artery emboli are also identified. 2. Decreased size of right side pleural effusion, now moderate with patchy airspace disease in the right lung which may be in part reinflation edema and/or atelectasis versus pneumonia. 3. Small to medium left pleural effusion with minimal airspace disease, also perhaps atelectasis or pneumonia and likely minimal pulmonary edema. 4. Small to medium pericardial effusion and mild cardiomegaly. 5. Small to medium volume ascites of uncertain etiology. 6. Mild body wall edema/anasarca. 7. The left tubal ligation clip is in an expected location. There is a right-sided ligation clip in the superior peritoneum posterior to the liver. Electronically Signed: Cuba Silva DO at 17:51 EST ,
[2023-03-10 16:46] LABS: Color, Urine Yellow (Yellow); Glucose, Dipstick Normal (Normal); Ketone-Dipstick 5 mg/dl (Negative); Leukocyte Esterase-Dipstick 100 /ul (Negative); Nitrite-Dipstick Negative (Negative); Occult Blood-Urine 250 /ul (Negative); Protein-Dipstick 30 mg/dl (Negative); Specific Gravity, Urine 1.025 (1.002-1.030); Urine Clarity Sl. Cloudy (Clear); Urine Urobilinogen 1 mg/dl (Normal)
[2023-03-10 16:49] LABS: Urine Bilirubin Dipstick 1 mg/dL (Negative)
[2023-03-10 16:59] LABS: Bacteria 1+ /hpf (None Seen); Red Blood Cells-Urine 50-100 SEEN /hpf (0-5); Squamous Epithelial Cells - UA 10-25 SEEN /hpf (5-10); White Blood Cells 5-10 SEEN /hpf (0-5)
[2023-03-10] MEDS: Lidocaine 2% (20 ml mdv) 20 ML Vial INFILT (17:01)
--- NOTE | 2023-03-10 17:03 | ED.RN ---
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 REMOVED 1810 ML OF FLUID.
--- NOTE | 2023-03-10 17:12 | RAD_ITS ---
EXAM: XR CHEST, 2 VIEWS CLINICAL INDICATION: POST THORA TECHNIQUE: Frontal and lateral views of the chest. COMPARISON: CTA chest subsequently on the same date. FINDINGS: LUNGS AND PLEURAL SPACES: Decreased size of right pleural effusion since prior examination with improved aeration of the right lung. Moderate degree of atelectasis and/or pneumonia in the right lung and residual small to medium pleural fluid. Small to medium left pleural effusion with minimal airspace disease, perhaps atelectasis or pneumonia. No pneumothorax. HEART: Cardiomegaly and small pericardial effusion better demonstrated on comparison examination. MEDIASTINUM: Central airways and mediastinal contour are unremarkable. BONES/JOINTS: Degenerative changes in the spine. No acute fracture. SOFT TISSUES: No significant abnormality. RAD/Chest Insp/Exp 2 View IMPRESSION: 1. Decreased size of right pleural effusion since prior examination with improved aeration of the right lung. Moderate degree of atelectasis and/or pneumonia in the right lung and residual small to medium pleural fluid. 2. Small to medium left pleural effusion with minimal airspace disease, perhaps atelectasis or pneumonia. 3. Cardiomegaly and small pericardial effusion better demonstrated on comparison examination. Electronically Signed: Cuba Silva DO at 17:44 EST ,
--- NOTE | 2023-03-10 17:13 | PCM.OP.PRO ---
Procedure Report Date of Procedure: 03/10/23 Assessment & Plan Assessment/Plan (1) Pleural effusion on right: PLAN: PROCEDURE: Ultrasound Guided Thoracentesis ORDERING PROVIDER: Dr. Al INDICATION: Female, 52 years old. Right pleural effusion. PROVIDER: JET Kirk PROCEDURE: The risks, benefits, and alternatives to the procedure were explained to the patient. The specific risks of bleeding, infection, and pneumothorax requiring chest tube insertion were discussed and accepted. Written informed consent was obtained. The patient was placed in the sitting, upright position. Ultrasonographic evaluation of the bilateral lower pleural spaces was carried out. An adequate pocket was identified in the right lower pleural space.The overlying skin was prepped and draped in sterile fashion. 2% lidocaine was administered subcutaneously for local anesthesia. Under ultrasound guidance, a 5-Albanian thoracentesis needle/catheter system was advanced into the right posterior lower pleural fluid collection. 1820 ml of clear yellow colored fluid was drained. 100 mL of this fluid was sent to the laboratory for analysis, as per requesting physician. The catheter was removed, and a sterile dressing was applied. The patient tolerated the procedure well. A chest x-ray was ordered. IMPRESSION: Successful ultrasound-guided thoracentesis of right pleural effusion. Procedures Radiology Radiology US Procedures: [id number] Thoracentesis
[2023-03-10 17:24] LABS: Cytology, Body Fluid / CSF SEE PATHOLOGY REPORT
[2023-03-10 17:52] LABS: Body Fluid Mononuclear WBC % 97.6 %; Body Fluid Polynuclear WBC # 0.002 10^3/uL; Body Fluid Polynuclear WBC % 2.4 %; Body Fluid Total Cells Counted 0.092 10^3/ul; White Blood Count/Body Fluid 0.082 10^3/uL
[2023-03-10 18:05] LABS: ALB/GLOB Ratio 0.9 RATIO (0.9-2.4); Globulin 3.8 g/dL (2.2-4.2); LDH 297 U/L (84-246); Protein, Total 7.4 g/dL (6.4-8.2)
--- NOTE | 2023-03-10 18:13 | NURSING ---
PCU WHITE PE, ACUTE CHF, HYPOXIC RESP FAILURE
--- NOTE | 2023-03-10 18:22 | RAD_ITS ---
EXAM: XR CHEST, 1 VIEW CLINICAL INDICATION: sob s/p thoracentesis TECHNIQUE: Frontal view of the chest. COMPARISON: Chest radiographs earlier on the same date. CTA chest on the same date. FINDINGS: LUNGS AND PLEURAL SPACES: Bilateral pleural effusions similar to the most recent prior examination with associated airspace disease which may be in part atelectasis and/or pneumonia. No pneumothorax. HEART: Cardiomegaly and small pericardial effusion. MEDIASTINUM: Central airways and mediastinal contour are unremarkable. BONES/JOINTS: Degenerative changes in the spine. No acute fracture. SOFT TISSUES: No significant abnormality. VASCULATURE: Atherosclerosis. RAD/Chest 1 View (Portable) IMPRESSION: 1. Bilateral pleural effusions similar to the most recent prior examination with associated airspace disease which may be in part atelectasis and/or pneumonia. 2. Cardiomegaly and small pericardial effusion. Electronically Signed: Cuba Silva DO at 18:58 EST ,
[2023-03-10 18:23] LABS: Magnesium 1.9 mg/dL (1.6-2.6)
[2023-03-10] MEDS: Heparin Injection (Vial) 5,000 UNIT/ML VIAL 4500 UNIT IV (18:23)
[2023-03-10 18:24] LABS: International Normalized Ratio 1.2; Prothrombin Time (Protime)PT. 14.9 SECONDS (11.7-14.9)
[2023-03-10] MEDS: HEPARIN/D5w 25,000 UNITS 25,000 UNITS/250 ML IV.SOLN. 0.100000000000000006 UNITS CONT INF (18:24)
[2023-03-10 18:25] LABS: Glucose, Body Fluid 125 mg/dL (40-70); LDH,Body Fluid 83 Units/L (Not Establ.); Protein, Body Fluid 2.5 g/dL (Not Establ.)
[2023-03-10 18:25] LABS: Partial Thromboplast Time 28.5 Seconds (24.1-36.2)
[2023-03-10 19:15] LABS: Auto B Fluid Analyzer BKGD Ct COUNTS W/IN LIMITS (W/IN LIMITS)
[2023-03-10 19:16] LABS: Appearance/Body Fluid CLEAR; Color/Body Fluid YELLOW; Red Cell Count/Body Fluid 55 /mm3; Source- Body Fluid THORACENTESIS
[2023-03-10 19:17] LABS: Lymphocytes 12 %; Macrophages 4 %; Monocytes 79 %; Neutrophil (Segs) 5 %
[2023-03-10 19:18] LABS: Body Fluid QC Type(s) BF3Q
--- NOTE | 2023-03-10 19:40 | ECHOCS_ITS ---
Reason For Study: CHF Procedure This was a 2D Doppler, Color Flow transthoracic echocardiogram. Contrast injection was performed. Exam performed portable in patient room. Left Ventricle Normal LV size. Severe global left ventricular systolic dysfunction. The estimated ejection fraction is 15-20% %. Unable to assess diastolic dysfunction. There is severe global hypokinesis of the left ventricle. Right Ventricle Mildly dilated right ventricle. Severely decreased right ventricular systolic function. Atria Normal left atrium. Mitral Valve Moderate mitral annular calcification. Moderately severe (3+) eccentric mitral valve insufficiency. Tricuspid Valve Severe (4+) tricuspid valve insufficiency. Aortic Valve Severe diffuse aortic valve thickening. The aortic valve is not well visualized in the short axis view. There is no aortic stenosis. Mild (1+) aortic valve insufficiency. Pulmonic Valve The pulmonic valve is not well visualized. Mild (1+) eccentric pulmonic valve insufficiency. Great Vessels Normal aortic root. Normal inferior vena cava. Pericardium/Pleural Small pericardial effusion. Moderate size left pleural effusion. Medication Diluted definity 1ml given slow IV push to enhance endocardial definition. MMode/2D Measurements & Calculations LVIDd: 4.4 cm IVSd: 0.82 cm LVOT diam: 2.0 cm LVIDs: 3.9 cm LVPWd: 1.00 cm RVDd: 3.8 cm FS: 12.2 % LVOT area: 3.1 cm2 Ao root diam: 3.3 cm LAV(MOD-bp): 58.4 ml LVAd ap4: 28.3 cm2 LAV(MOD-bp) Indexed: 32.1 ml/m2 LVLd ap4: 7.8 cm LAV(MOD-sp2): 58.0 ml EDV(MOD-sp4): 84.5 ml LAV(MOD-sp4): 56.2 ml EDV(sp4-el): 87.1 ml LVAs ap4: 24.1 cm2 LVLs ap4: 7.4 cm ESV(MOD-sp4): 67.4 ml ESV(sp4-el): 67.1 ml EF(MOD-sp4): 20.2 % EF(sp4-el): 22.9 % SV(MOD-sp4): 17.1 ml SV(sp4-el): 20.0 ml LA A4 area: 21.2 cm2 LA dimension(2D): 3.9 cm RA A4 area: 18.6 cm2 TAPSE: 0.83 cm Doppler Measurements & Calculations MV E max luke: 136.4 cm/sec Lat Peak E' Luke: 7.3 cm/sec Med Peak E' Luke: 6.9 cm/sec MV A max luke: 104.1 cm/sec E/E' lat: 18.6 E/E' med: 19.9 MV E/A: 1.3 MV V2 max: 170.7 cm/sec Ao V2 max: 178.1 cm/sec LV V1 max: 89.2 cm/sec MV max P.7 mmHg Ao max P.7 mmHg LV V1 max P.2 mmHg MV V2 mean: 110.6 cm/sec Ao V2 mean: 141.0 cm/sec LV V1 mean P.9 mmHg MV mean P.6 mmHg Ao mean P.3 mmHg LV V1 mean: 65.8 cm/sec MV V2 VTI: 28.0 cm Ao V2 VTI: 24.4 cm LV V1 VTI: 11.9 cm AV (velocity ratio): 0.49 MVA(VTI): 1.3 cm2 LUIS(I,D): 1.5 cm2 LUIS(V,D): 1.5 cm2 SV(LVOT): 36.5 ml PA V2 max: 48.4 cm/sec TR max luke: 265.7 cm/sec TR max P.2 mmHg ECHO/Echo Complete W/ Contrast Interpretation Summary The estimated ejection fraction is 15-20% %. Severe global left ventricular systolic dysfunction. There is severe global hypokinesis of the left ventricle. Severely decreased right ventricular systolic function Mildly dilated right ventricle. Unable to assess diastolic dysfunction. Moderately severe (3+) eccentric mitral valve insufficiency. Small pericardial effusion. Moderate size left pleural effusion. Ordering Physician: Yadira Wiggins Referring Physician: Dereck Mejia Performed By: Jillian Zaragoza, MINDA, RVT
[2023-03-10] MEDS: Metoprolol Tartrate 25 MG Tablet PO (20:17)
[2023-03-10] MEDS: Potassium Chloride Oral Tablet 20 MEQ 40 MEQ PO (20:24)
[2023-03-10] MEDS: 0.9% Saline Lock 10 ML Syringe IV (20:24)
[2023-03-10 20:29] LABS: Procalcitonin < 0.04 ng/mL (0.00-0.09)
--- OUTSIDE RECORDS SUMMARY | 2023-03-10 20:29 | XMS RPT_ITS | CCD ---
Author Name Unknown Address [address] [place] [address] Organization [facility] Care Team Providers Care Heel Seat Sander Name Role Phone NancycamilleGenesis Unavailable Debi Barrett Unavailable Moris Hartmann Unavailable MARYAM Garnett Unavailable Unavailable Virginia Lakhani Unavailable Unavailable Mary Ambriz Unavailable Unavailable Ditch Tender, System Unavailable Unavailable Unavailable Unavailable Allergies Allergy Classification Reported Allergen(s) Allergy Type Date of Onset Reaction(s) Facility (4 sources) avocado oil; Translations: [AVOCADO] Drug Allergy 12-16-19 05 [facility] Rep[facility] (1 source) Lobster - dietary; Translations: [LOBSTER (CRUSTACEANS)] Propensity to adverse reactions to food (disorder) 12-16-19 [facility] (1 source) SUMAtriptan; Translations: [SUMATRIPTAN SUCCINATE] Drug Allergy 12-16-19 [facility] (1 source) ZOLMitriptan; Translations: [ZOLMITRIPTAN] Drug Allergy 12-16-19 [facility] (1 source) NITROFURANTOIN MONOHYD/M-CRYST; Translations: [NITROFURANTOIN MONOHYD/M-CRYST] Propensity to adverse reactions to drug (disorder) 12-16-19 [facility] (1 source) MUSTARD, MUSTARD OIL; Translations: [MUSTARD, MUSTARD OIL] Propensity to adverse reactions to food (disorder) 12-16-19 [facility] (1 source) NUT - UNSPECIFIED; Translations: [NUT - UNSPECIFIED] Propensity to adverse reactions to drug (disorder) 12-16-19 [facility] (3 sources) Mustard (substance) allergy to substance [facility] Work Phone: (3 sources) Shellfish; Translations: [Shellfish] allergy to substance [facility] Work Phone: Medications Completed/Discontinued Medications Medication Drug Class(es) Dates Sig (Normalized) Sig (Original) acetaminophen 325 mg / butalbital 50 mg / caffeine 40 mg oral tablet (3 sources) Barbiturate, Central Nervous System Stimulant, Methylxanthine Start: 10-22-2008 End: 08-04-2010 take 1 tablet by mouth every four to six hours as needed, then take 6 tablets by mouth once daily as needed, then take 7-16 tablets by mouth as needed FIORICET, 50-325-40MG (Oral Tablet) uad Tablet PRN for 0 days Quantity: 10 {Tablet} Refills: 0 Ordered: 04-Aug-2010 Bernie Hopkins LPN Start : 22-Oct-2008 End : 04-Aug-2010 Inactive Comments: 1 or 2 every 4-6 hours prn not to exceed 6 in a day called to benji sanchez 09-25-08 erussell Problems Active Problems Problem Classification Problem Date Documented Da te Episodic/Chronic Anxiety disorders (20 sources) Anxiety; Translations: [Acute stress disorder] 09-23-2014 Chronic Past or Other Problems Problem Classification Problem Date Documented Da te Episodic/Chronic Mycoses (3 sources) Onychomycosis; Translations: [Onychomycosis] Resolved: 03-21-2014 02-03-2015 Episodic Other upper respiratory disease (3 sources) Allergic rhinitis; Translations: [Allergic rhinitis due to other allergen] Resolved: 09-25-2008 03-21-2014 Chronic Unclassified (3 sources) Abortions/Miscarr iages; Translations: [Abortions/Miscar riages] 03-21-2014 Results Test Name Value Interpretation Reference Range Facil ity Vital Signs Date Time Vital Sign Value Performing Clinician Facility 09-23-2014 16:04-0400 BMI (Body Mass Index) 22.05 kg/m2 Genesis García [facility] Work Phone: 09-23-2014 16:04-0400 Body Temperature 97 [degF] Genesis García [facility] Work Phone: Encounters Encounter Date Encounter Type Care Provider Facility Start: 02-02-2018 End: 02-05-2018 Patient encounter procedure [facility] Start: 07-17-2017 End: 07-19-2017 Patient encounter procedure [facility] Start: 10-10-2014 End: 10-10-2014 Phone Encounter [facility] Start: 10-07-2014 End: 10-07-2014 Phone Encounter [facility] Start: 09-23-2014 End: 09-23-2014 Office outpatient visit 15 minutes [facility] Start: 07-11-2014 End: 07-11-2014 Office outpatient new 10 minutes [facility] Start: 05-06-2014 End: 05-06-2014 Refill Request [facility] Start: 03-21-2014 End: 03-21-2014 Office outpatient visit 10 minutes [facility] Start: 05-17-2013 End: 05-20-2013 Patient encounter procedure [facility] Start: 01-08-2013 End: 01-08-2013 Prescription Refill [facility] Start: 11-14-2012 End: 11-14-2012 Office outpatient visit 25 minutes [facility] Start: 06-01-2012 End: 06-01-2012 Patient encounter procedure [facility] Garc[facility] Start: 12-30-2011 End: 12-30-2011 Annotation/Addendum [facility] Start: 12-01-2011 End: 12-01-2011 Phone Encounter [facility] Start: 06-22-2011 End: 06-22-2011 Office outpatient visit 15 minutes [facility] Start: 03-04-2011 End: 03-04-2011 Patient encounter procedure [facility] Start: 08-17-2010 End: 08-17-2010 Phone Encounter [facility] Start: 08-13-2010 End: 08-13-2010 Annotation/Addendum Genesis [facility] Start: 08-04-2010 End: 08-04-2010 Patient encounter procedure Genesis García [facility] Start: 09-25-2008 End: 09-25-2008 Historical Summary Genesis García [facility] Start: 03-11-2008 End: 03-11-2008 Historical Summary [facility] Start: 03-05-2008 End: 03-05-2008 Office outpatient visit 15 minutes Genesis García [facility] Start: 02-29-2008 End: 02-29-2008 Office outpatient visit 15 minutes Genesis García [facility] Start: 10-30-2007 End: 10-30-2007 Office outpatient visit 25 minutes Genesis García [facility] Start: 08-29-2007 End: 08-29-2007 Office outpatient visit 15 minutes Genesis García [facility] Start: 06-14-2007 End: 06-14-2007 Patient encounter procedure Genesis García [facility] Start: 12-05-2006 End: 12-05-2006 Refill Request Genesis García [facility] Start: 09-21-2006 End: 09-21-2006 Office outpatient visit 15 minutes Genesis García [facility] Start: 08-03-2006 End: 08-03-2006 Office outpatient visit 15 minutes Genesis García [facility] Start: 06-20-2006 End: 06-20-2006 Office outpatient visit 15 minutes Genesis García [facility] Start: 05-03-2006 End: 05-03-2006 Patient encounter procedure Genesis García [facility] Start: 05-03-2006 End: 05-03-2006 Historical Summary Genesis García [facility] Procedures Date Procedure Procedure Detail Performing Clinician Start: 09-23-2014 End: 09-23-2014 Spmtry w/vc expiratory antonio w/wo mxml vol vntj _ Genesis García Work Phone: Plan of Treatment Date Care Activity Detail Author Start: 03-21-2014 Patient Education Insomnia *: insomnia [facility] Work Phone: Start: 05-17-2013 Patient Education Migraine Headache: Brief Version *: head [facility] Work Phone: Start: 09-04-2013 Patient Education Allergies: Controlling Your Environment: allergen [facility] Work Phone: Start: 06-22-2011 Provider Instructions for Treatment [facility] Work Phone: Start: 03-04-2011 [facility] metabolic panel [facility] (94011) [facility] Work Phone: Start: 08-04-2010 Provider Instructions for Treatment FOLLOW UP IN 1 MONTH [facility] Work Phone: Start: 03-05-2008 Provider Instructions for Treatment [facility] Work Phone: Start: 08-03-2006 Provider Instructions for Treatment FOLLOW UP IN 6 WEEKS [facility] Work Phone: Start: 05-03-2006 Provider Instructions for Treatment FOLLOW UP IN 4 WEEKS [facility] Work Phone: [facility] Work [facility]: [facility] Work [facility]: [facility] Work [facility]: [facility] Work [facility]: [facility] Work [facility]: [facility] Work [facility]: [facility] Work Phone: Payers Date Payer Category Payer Policy ID Unknown Social History Date Type Detail Facility Alcohol Use Alcohol Use [facility] Work Phone: Summary Purpose Family History Unknown Family Member Name Dates Details Family Members In General Comments:ETOH, Cancer, Heart /Lung, HBP Status:Active Unknown Family Member Name Dates Details Family Members In General Comments:ETOH, Cancer, Heart /Lung, HBP Status:Active Advance Directives No Advanced Directives Records Found Instructions Name Dates Details Patient Instructions Indication:Anxiety Start:23-Sep-2014 Instruction Type:Provider Instructions for Treatment Patient Instructions Indication:Migraine with aura and without status migrainosus, not intractable Start:17-May-2013 Instruction Type:Provider Instructions for Treatment Patient Instructions Indication:Wheezing Start:14-Nov-2012 Instruction Type:Provider Instructions for Treatment Patient Instructions Indication:Migraine with aura and without status migrainosus, not intractable Start:01-Jun-2012 Instruction Type:Provider Instructions for Treatment Name Dates Details Patient Instructions Indication:Anxiety Start:23-Sep-2014 Instruction Type:Provider Instructions for Treatment Patient Instructions Indication:Migraine with aura and without status migrainosus, not intractable Start:17-May-2013 Instruction Type:Provider Instructions for Treatment Patient Instructions Indication:Wheezing Start:14-Nov-2012 Instruction Type:Provider Instructions for Treatment Patient Instructions Indication:Migraine with aura and without status migrainosus, not intractable Start:01-Jun-2012 Instruction Type:Provider Instructions for Treatment Additional Source Comments INFORMATION SOURCE (unrecogn ized section and content) FOR RECORDS PERTAINING TO PATIENTS WHO ARE OR HAVE BEEN ENROLLED IN A CHEMICAL DEPENDENCY/SUBSTANCEABUSE PROGRAM, SOME INFORMATION MAY BE OMITTED. This clinical summary was aggregated from multiple sources. Caution should be exercised in using it in the provision of clinical care. This summary normalizes information from multiple sources, and as a consequence, information in this document may materially change the coding, format and clinical context of patient data. In addition, data may be omitted in some cases. CLINICAL DECISIONS SHOULD BE BASED ON THE PRIMARY CLINICAL RECORDS. [employer] provides no warranty or guarantee of the accuracy or completeness of information in this document.
[2023-03-10] MEDS: Budesonide Respules 0.5 MG/2 ML AMPUL.NEB. INHALATION (20:43)
--- OUTSIDE RECORDS SUMMARY | 2023-03-10 20:47 | XMS RPT_ITS | CCD ---
Author Name Unknown Address [address] [place] [address] Organization [facility] Care Team Providers Care Business Process Representative Name Role Phone NancycamilleGenesis Unavailable Debi Barrett Unavailable Moris Hartmann Unavailable MARYAM Garnett Unavailable Unavailable Virginia Lakhani Unavailable Unavailable Mary Ambriz Unavailable Unavailable Neurosurgeon, System Unavailable Unavailable Unavailable Unavailable Allergies Allergy Classification Reported Allergen(s) Allergy Type Date of Onset Reaction(s) Facility (4 sources) avocado oil; Translations: [AVOCADO] Drug Allergy 12-16-19 05 [facility] Repository (1 source) Lobster - dietary; Translations: [LOBSTER (CRUSTACEANS)] Propensity to adverse reactions to food (disorder) 12-16-19 [facility] Repository (1 source) SUMAtriptan; Translations: [SUMATRIPTAN SUCCINATE] Drug Allergy 12-16-19 [facility] Repository (1 source) ZOLMitriptan; Translations: [ZOLMITRIPTAN] Drug Allergy 12-16-19 [facility] Rep[facility] (1 source) NITROFURANTOIN MONOHYD/M-CRYST; Translations: [NITROFURANTOIN MONOHYD/M-CRYST] Propensity to adverse reactions to drug (disorder) 12-16-19 [facility] (1 source) MUSTARD, MUSTARD OIL; Translations: [MUSTARD, MUSTARD OIL] Propensity to adverse reactions to food (disorder) 12-16-19 [facility] (1 source) NUT - UNSPECIFIED; Translations: [NUT - UNSPECIFIED] Propensity to adverse reactions to drug (disorder) 12-16-19 [facility] Repository (3 sources) Mustard (substance) allergy to [...] Start: 02-02-2018 End: 02-05-2018 Patient encounter procedure [facility] Start: 07-17-2017 End: 07-19-2017 Patient encounter procedure [facility] Start: 10-10-2014 End: 10-10-2014 Phone Encounter [facility] Start: 10-07-2014 End: 10-07-2014 Phone Encounter [facility] Start: 09-23-2014 End: 09-23-2014 Office outpatient visit 15 minutes [facility] Start: 07-11-2014 End: 07-11-2014 Office outpatient new 10 minutes [facility] Start: 05-06-2014 End: 05-06-2014 Refill Request [facility] Start: 03-21-2014 End: 03-21-2014 Office outpatient visit 10 minutes Genesis [facility] Start: 05-17-2013 End: 05-20-2013 Patient encounter procedure [facility] García [facility] Start: 01-08-2013 End: 01-08-2013 Prescription Refill [facility] Start: 11-14-2012 End: 11-14-2012 Office outpatient visit 25 minutes [facility] Start: 06-01-2012 End: 06-01-2012 Patient encounter procedure [facility] Garc[facility] Start: 12-30-2011 End: 12-30-2011 Annotation/Addendum [facility] Start: 12-01-2011 End: 12-01-2011 Phone Encounter [facility] Start: 06-22-2011 End: 06-22-2011 Office outpatient visit 15 minutes [facility] Start: 03-04-2011 End: 03-04-2011 Patient encounter procedure [facility] Start: 08-17-2010 End: 08-17-2010 Phone Encounter [facility] Start: 08-13-2010 End: 08-13-2010 Annotation/Addendum [facility] Start: 08-04-2010 End: 08-04-2010 Patient encounter procedure Genesis García [facility] Start: 09-25-2008 End: 09-25-2008 Historical Summary Genesis García [facility] Start: 03-11-2008 End: 03-11-2008 Historical Summary [facility] Start: 03-05-2008 End: 03-05-2008 Office outpatient visit 15 minutes Genesis García [facility] Start: 02-29-2008 End: 02-29-2008 Office outpatient visit 15 minutes Genesis García [facility] Start: 10-30-2007 End: 10-30-2007 Office outpatient visit 25 minutes Genesis García [facility] Start: 08-29-2007 End: 08-29-2007 Office outpatient visit 15 minutes Genesis García [facility] Start: 06-14-2007 End: 06-14-2007 Patient encounter procedure Genesis García [facility] Start: 12-05-2006 End: 12-05-2006 Refill Request Genesis García [facility] Start: 09-21-2006 End: 09-21-2006 Office outpatient visit 15 minutes Genesis García [facility] Start: 08-03-2006 End: 08-03-2006 Office outpatient visit 15 minutes Genesis García [facility] Start: 06-20-2006 End: 06-20-2006 Office outpatient visit 15 minutes Genesis García [facility] Start: 05-03-2006 End: 05-03-2006 Patient encounter procedure Genesis García [facility] Start: 05-03-2006 End: 05-03-2006 Historical Summary Genesis García [facility] Procedures Date Procedure Procedure Detail [...] 03-04-2011 [facility] panel [facility] (57793) [facility] Work Phone: Start: 08-04-2010 [...] BE BASED ON THE PRIMARY CLINICAL RECORDS. [employer] provides no warranty or guarantee of the accuracy or completeness of information in this document.
[2023-03-10] MEDS: Montelukast 10 MG Tablet 5 MG PO (22:03)
[2023-03-10] MEDS: Atorvastatin Calcium 80 MG Tablet PO (22:03)
[2023-03-10 22:13] LABS: Troponin-I HS 30 pg/mL (3.0-54.0)
[2023-03-10] MEDS: ALPRAZolam 0.5 MG Tablet PO (23:12)
[2023-03-10 23:48] LABS: Troponin-I HS 24 pg/mL (3.0-54.0)
[2023-03-11] VITALS (10 sets, daily range): BP systolic 97–112; BP diastolic 75–88; PULSE 79–130; RESP 16–20; TEMP 36.3–36.6; O2SAT 95–100; BMI 23.8
[2023-03-11 03:40] LABS: Troponin-I HS 31 pg/mL (3.0-54.0)
[2023-03-11] MEDS: Budesonide Respules 0.5 MG/2 ML AMPUL.NEB. INHALATION ×2 (07:35→20:10)
[2023-03-11 08:55] LABS: Absolute Lymphocyte Count 0.83 X10^3/uL (0.83-4.51); Absolute Neutrophil Count 5.9 X10^3/uL (2.0-7.7); Basophil# 0.02 X10^3/uL; Basophil% 0.3 % (0-1); Eosinophil# 0.03 X10^3/uL; Eosinophils% 0.4 % (0-5); Hematocrit 38.5 % (37-47); Hemoglobin 11.4 g/dL (12.0-15.0); Lymphocyte # 0.83 X10^3/ul (0.83-4.51); Lymphocyte % 10.7 % (19-41); Mean Corp Hgb Conc 29.6 g/dL (32-36); Mean Corpuscular Hgb 24.4 pg (27.0-32.0); Mean Corpuscular Volume 82.4 fL (81-99); Monocyte# 0.96 X10^3/uL; Monocyte% 12.3 % (0-10); NRBC Flagged by Analyzer 0 % (0-5); Neutrophil # 5.91 X10^3/uL (2.7-7.7); Neutrophil % 75.9 % (47-70); Platelet Count 270 K/mm3 (150-450); RBC Distribution Width CV 19.2 % (11.6-14.6); Red Blood Count 4.67 M/mm3 (4.2-5.4); White Blood Count 7.8 K/mm3 (4.4-11.0)
[2023-03-11 09:03] LABS: Partial Thromboplast Time 71.7 Seconds (24.1-36.2)
[2023-03-11 09:27] LABS: ALB/GLOB Ratio 0.9 RATIO (0.9-2.4); AST(SGOT) 22 U/L (15-37); Alanine Aminotransfer ALT/SGPT 24 U/L (13-56); Albumin, Serum 2.9 g/dL (3.2-5.0); Alkaline Phosphatase 116 U/L (45-117); Anion Gap 7 (5-15); BUN 20 mg/dL (7-18); BUN/Creat Ratio 14.5 RATIO (10-20); Calcium,Total 8.6 mg/dL (8.5-10.1); Chloride 101 mmol/L (98-107); Cholesterol 120 mg/dL (200); Creatinine, Serum 1.38 mg/dL (0.55-1.02); EST Glomerular Filtration Rate 42 mL/min (>60); Est Glom Filt Rate - Afr Amer 51 mL/min (>60); Estimated Creatinine Clearance 45.85 ml/min; Globulin 3.2 g/dL (2.2-4.2); Glucose 120 mg/dL (74-106); High Density Lipoprotein 61 mg/dL; Potassium 3.2 mmol/L (3.5-5.1); Protein, Total 6.1 g/dL (6.4-8.2); Sodium Level 137 mmol/L (136-145); Triglycerides 84 mg/dL; Very Low Density Lipoprotein 17 mg/dL (5-40)
[2023-03-11] MEDS: Aspirin 81 MG TAB.CHEW PO (09:42)
[2023-03-11] MEDS: Metoprolol Tartrate 25 MG Tablet PO (09:42)
[2023-03-11] MEDS: Sertraline 50 MG Tablet PO (09:42)
[2023-03-11] MEDS: 0.9% Saline Lock 10 ML Syringe IV (09:42)
[2023-03-11] MEDS: Furosemide 40 MG/4 ML Vial IV (09:43)
--- NOTE | 2023-03-11 11:20 | CASEMGMT ---
RN CM Face to Face with patient for initial transition planning/care coordination assessment. RN CM introduced self and role at [facility]. Patient lying in bed, alert and oriented. Patient willing to participate in assessment and is able to answer all questions appropriately. Care providers, pharmacy, and demographics verified. Patient wishes to discharge home, denies need for home health at this time. Patient states she has no further needs or concerns at this time. CM to follow for discharge planning needs that may arise. PCP: Jackie Specialists: [facility] Preferred Pharmacy: [facility] Insurance: [employer] Prescription Benefit: yes Living Will/HPOA: yes, Dereck Siu LNOK: Living Arrangements: Patient lives with in a 2 story home with access for 1st floor setup. Patient states she is independent at home. Transportation: self, DME/HHC: Patient has nebulizer and pulse ox. Will monitor for home oxygen, prefers [employer]. No previous HHC or SNF. Disposition Plan: Patient to discharge home with family support and follow-up plans in place. Ivana AU, RN, CM
--- NOTE | 2023-03-11 14:18 | PN.HOSP_ITS ---
Reason for Visit Reason for Visit: Shortness of breath, orthopnea, weight gain Subjective Subjective Mrs. Siu is a 52-year-old white female who presented to the emergency department at [facility] on 03/10/2023 with worsening shortness of breath and increasing swelling to her lower extremities that had been slowly progressing over the last 4 weeks. She complained of orthopnea and paroxysmal dyspnea as well. She was seen as an outpatient and placed on a 2-week prednisone taper with no marked improvement. She had been monitoring her pulse oximetry as an outpatient when she was short of breath and the day prior to presentation she reportedly had a 70% pulse ox on room air. Outpatient chest x- ray was performed and was concerning for overload. She does not wear oxygen at baseline. She was sent for an outpatient repeat chest x-ray on the day of presentation but when she got there her vitals were assessed and she was found to be dyspneic and hypoxic with oxygen saturations at 65% on room air so they referred her to the emergency department for further workup. Vital signs on presentation showed a temperature of 98.9, heart rate 136, blood pressure 135/103, respiratory rate was 28 and oxygen saturation was documented at 96% on room air while at rest. I question whether or not the outpatient oxygen saturation of 65% was after exertion or during recovery. Her CBC was overall unremarkable showing a normal white count with a left shift at 80% neutrophilia. She did have a D-dimer elevation at 1.80. Her chemistry panel showed mild hyponatremia with a potassium of 3.0. A serum creatinine of 1.51 with an unclear baseline. Normal magnesium level. Her BNP was 628. Cardiac enzymes have been cycled and are unremarkable. A CTA of the chest showed a right lower lobe segmental and subsegmental pulmonary emboli, right-sided pleural effusion, small to medium left pleural effusion, small to medium pericardial effusion with mild cardiomegaly, small to medium volume ascites, and body wall edema and anasarca. A right-sided thoracentesis was able to be procured yesterday at which time 1820 cc of clear fluid was drained. By Light's criteria pleural fluid is exudative however she was given Lasix prior to this being obtained so this could cause her pleural fluid to appear exudative. Pleural fluid cultures are pending. An echocardiogram was obtained and shows an EF of 15 to 20% with severe global left ventricular dysfunction, severe decreased right ventricular systolic function with a dilated right ventricle, severe eccentric mitral valve insufficiency, small pericardial effusion and moderate left pleural effusion. She was admitted to the telemetry floor and placed on IV Lasix with appropriate therapy for cardiac disease. With regards to her pulmonary emboli she was placed on a heparin drip for now until we can preclude the need for any further invasive procedures at which time she will be transition to Eliquis. Her breathing is better overall. She was concerned that her asthma was flaring up and is frustrated about her care thus far as an outpatient. She is pleased that we have some answers. I discussed with her her findings on her echocardiogram and CT scan and what our plan was with regards to her heart failure. Cardiology also explained that she will need a heart catheterization and this will likely be done on Monday. After explaining everything questions were answered and family were at the bedside. Objective Data Objective Data Vital Signs: Vital Signs Temp Pulse Resp BP Pulse Ox O2 Del Method O2 Flow Rate 97.4 F L 109 H 18 102/85 H 95 Nasal Cannula 2 03/11/23 09:40 03/11/23 09:42 03/11/23 09:40 03/11/23 09:40 03/11/23 10:20 03/11/23 09:40 03/11/23 11:03 Oxygen Flow Rate (L/min) 2 Oxygen Delivery Method Nasal Cannula Weight: 69.1 kg Body Mass Index (BMI) 23.8 Intake & Output: Intake and Output for Last 24 Hours 03/09/23 03/10/23 03/11/23 23:59 23:59 23:59 Intake Total 0.16 / 220.16 530 / 530 Balance 0.16 / 220.16 530 / 530 Lab / Micro Data 03/11/23 08:43 03/11/23 08:43 Labs: Laboratory Results - last 24 hr 03/10/23 15:14: WBC 8.4, RBC 5.06, Hgb 12.3, Hct 43.2, MCV 85.4, MCH 24.3 L, MCHC 28.5 L, RDW Std Deviation 57.2 H, RDW Coeff of Endy 19.1 H, Plt Count 309, MPV 10.2, Immature Gran % (Auto) 0.500, Neut % (Auto) 80.0 H, Lymph % (Auto) 8.8 L, Whiteside % (Auto) 9.5, Eos % (Auto) 1.0, Baso % (Auto) 0.2, Absolute Neuts (auto) 6.7, Absolute Lymphs (auto) 0.74 L, Nucleated RBC % 0, PT 14.9, INR 1.2, APTT 28.5, D-Dimer Quant (PE/DVT) 1.80 H*, Sodium 136, Potassium 3.0 L, Chloride 100, Carbon Dioxide 27.0, Anion Gap 9, BUN 17, Creatinine 1.51 H, Estim Creat Clear Calc 41.90, Est GFR (MDRD) Af Amer 46 L, Est GFR (MDRD) Non-Af 38 L, BUN/Creatinine Ratio 11.3, Glucose 120 H, Calcium 9.0, Magnesium 1.9, Lactate Dehydrogenase 297 H, Troponin I High Sens 26, B-Natriuretic Peptide 628.2 H, Total Protein 7.4, Globulin 3.8, Albumin/Globulin Ratio 0.9 03/10/23 16:01: Urine Color Yellow, Urine Clarity Sl. Cloudy, Urine pH 5.0, Ur Specific Edison 1.025, Urine Protein 30 H, Urine Glucose (UA) Normal, Urine Ketones 5 H, Urine Occult Blood 250 H, Urine Nitrite Negative, Urine Bilirubin 1 H, Urine Urobilinogen 1 H, Ur Leukocyte Esterase 100 H, Urine RBC 50-100 SEEN, Urine WBC 5-10 SEEN, Ur Squamous Epith Cells 10-25 SEEN, Urine Bacteria 1+, Urine Mucus 0 SEEN 03/10/23 16:37: Fluid Source THORACENTESIS, Fluid Color YELLOW, Fluid Appearance CLEAR, Fluid WBC 0.082, Fluid RBC 55, Fluid Tot Cell Count 0.092 H, Fld Polynuclear WBCs # 0.002, Fld Polynuclear WBCs % 2.4, Fluid Mononuclear WBCs 0.080, Fld Mononuclear WBCs % 97.6, Fluid Neutrophils 5, Fluid Lymphocytes 12, Fluid Monocytes 79, Fluid Macrophages 4, Fl Pathologist Comment May follow, Fluid Glucose 125 H, Fluid Total Protein 2.5, Fluid LDH 83, Fluid Comment 2 SEE COMMENT 03/10/23 18:25: Procalcitonin < 0.04 03/10/23 21:18: Troponin I High Sens 30 03/10/23 23:18: Troponin I High Sens 24 03/11/23 00:50: APTT 80.0 H 03/11/23 03:10: Troponin I High Sens 31 03/11/23 08:43: WBC 7.8, RBC 4.67, Hgb 11.4 L, Hct 38.5, MCV 82.4, MCH 24.4 L, MCHC 29.6 L, RDW Std Deviation 54.0 H, RDW Coeff of Endy 19.2 H, Plt Count 270, MPV 10.0, Immature Gran % (Auto) 0.400, Neut % (Auto) 75.9 H, Lymph % (Auto) 10.7 L, Whiteside % (Auto) 12.3 H, Eos % (Auto) 0.4, Baso % (Auto) 0.3, Absolute Neuts (auto) 5.9, Absolute Lymphs (auto) 0.83, Nucleated RBC % 0, APTT 71.7 H, Sodium 137, Potassium 3.2 L, Chloride 101, Carbon Dioxide 29.0, Anion Gap 7, BUN 20 H, Creatinine 1.38 H, Estim Creat Clear Calc 45.85, Est GFR (MDRD) Af Amer 51 L, Est GFR (MDRD) Non-Af 42 L, BUN/Creatinine Ratio 14.5, Glucose 120 H, Calcium 8.6, Total Bilirubin 1.80 H, AST 22, ALT 24, Alkaline Phosphatase 116, Total Protein 6.1 L, Albumin 2.9 L, Globulin 3.2, Albumin/Globulin Ratio 0.9, Trig lycerides 84, Cholesterol 120, LDL Cholesterol 42, VLDL Cholesterol 17, HDL Cholesterol 61 Radiography Diagnostic Testing: Radiology Impression Chest X-Ray 03/10/23 15:30 IMPRESSION: Grossly stable large right pleural effusion. Cardiomegaly. Electronically Signed: Cortney Whitehead MD at 15:44 EST , Abdomen/Pelvis CT 03/10/23 16:23 IMPRESSION: 1. Right lower lobe segmental and subsegmental pulmonary artery emboli are identified. Possible small segmental right middle lobe pulmonary artery emboli are also identified. 2. Decreased size of right side pleural effusion, now moderate with patchy airspace disease in the right lung which may be in part reinflation edema and/or atelectasis versus pneumonia. 3. Small to medium left pleural effusion with minimal airspace disease, also perhaps atelectasis or pneumonia and likely minimal pulmonary edema. 4. Small to medium pericardial effusion and mild cardiomegaly. 5. Small to medium volume ascites of uncertain etiology. 6. Mild body wall edema/anasarca. 7. The left tubal ligation clip is in an expected location. There is a right-sided ligation clip in the superior peritoneum posterior to the liver. Electronically Signed: Cuba Robbjames, at 17:52 EST , Chest CTA 03/10/23 16:23 IMPRESSION: 1. Right lower lobe segmental and subsegmental pulmonary artery emboli are identified. Possible small segmental right middle lobe pulmonary artery emboli are also identified. 2. Decreased size of right side pleural effusion, now moderate with patchy airspace disease in the right lung which may be in part reinflation edema and/or atelectasis versus pneumonia. 3. Small to medium left pleural effusion with minimal airspace disease, also perhaps atelectasis or pneumonia and likely minimal pulmonary edema. 4. Small to medium pericardial effusion and mild cardiomegaly. 5. Small to medium volume ascites of uncertain etiology. 6. Mild body wall edema/anasarca. 7. The left tubal ligation clip is in an expected location. There is a right-sided ligation clip in the superior peritoneum posterior to the liver. Electronically Signed: Cuba Hurtadoparth, at 17:51 EST , ADDENDUM: 03/10/23 1806 IMPRESSION: 1. Right lower lobe segmental and subsegmental pulmonary artery emboli are identified. Possible small segmental right middle lobe pulmonary artery emboli are also identified. 2. Decreased size of right side pleural effusion, now moderate with patchy airspace disease in the right lung which may be in part reinflation edema and/or atelectasis versus pneumonia. 3. Small to medium left pleural effusion with minimal airspace disease, also perhaps atelectasis or pneumonia and likely minimal pulmonary edema. 4. Small to medium pericardial effusion and mild cardiomegaly. 5. Small to medium volume ascites of uncertain etiology. 6. Mild body wall edema/anasarca. 7. The left tubal ligation clip is in an expected location. There is a right-sided ligation clip in the superior peritoneum posterior to the liver. N.B. : The above Results were Read Back by Cuba Silva DO to Hilario Al MD, and understanding confirmed on 03/10/2023 17:59:56 (ET). Electronically Signed: Cuba Silva DO at 17:51 EST , Chest X-Ray 03/10/23 17:12 IMPRESSION: 1. Decreased size of right pleural effusion since prior examination with improved aeration of the right lung. Moderate degree of atelectasis and/or pneumonia in the right lung and residual small to medium pleural fluid. 2. Small to medium left pleural effusion with minimal airspace disease, perhaps atelectasis or pneumonia. 3. Cardiomegaly and small pericardial effusion better demonstrated on comparison examination. Electronically Signed: Cuba Silva DO at 17:44 EST , Chest X-Ray 03/10/23 18:22 IMPRESSION: 1. Bilateral pleural effusions similar to the most recent prior examination with associated airspace disease which may be in part atelectasis and/or pneumonia. 2. Cardiomegaly and small pericardial effusion. Electronically Signed: Cuba Silva DO at 18:58 EST , Echocardiogram 03/10/23 19:40 Interpretation Summary The estimated ejection fraction is 15-20% %. Severe global left ventricular systolic dysfunction. There is severe global hypokinesis of the left ventricle. Severely decreased right ventricular systolic function Mildly dilated right ventricle. Unable to assess diastolic dysfunction. Moderately severe (3+) eccentric mitral valve insufficiency. Small pericardial effusion. Moderate size left pleural effusion. Ordering Physician: Yadira Wiggins Referring Physician: Dereck Mejia Performed By: Jillian Zaragoza, MINDA, RVT Rhythm Strip Rhythm Strip: Sinus Tach Rate: 130 Ectopy: None Physical Exam Const alert, oriented x3, no apparent distress, average body habitus and well no urished; Negative for healthy appearing Constitutional Narrative: Middle-aged, ill-appearing, white female, sitting up in bed, and children at bedside, patient appears comfortable on 2 L nasal cannula however does have some conversational dyspnea, does not appear toxic HEENT head/scalp atraumatic and moist oral mucous membranes HEENT Narrative: Mallampati is 2, no thrush Head and Scalp: normocephalic Eyes PERRL and conjunctivae normal Eyes Narrative: No scleral icterus Neck no lymphadenopathy and supple Neck Narrative: Positive JVD, trachea midline, no thyroid enlargement noted Resp no retractions, no use of accessory muscles and No clear to auscultation bilaterally Resp Narrative: Mild tachypnea, conversational dyspnea but no dyspnea at rest, crackles at bases bilaterally Auscultation: crackles; Negative for rhonchi or wheezes Cardio regular rhythm, S1 normal heart sound, S2 normal heart sound, no murmurs, no rub, no gallops and no clicks Cardio Narrative: Mild tachycardia GI normal to inspection, nondistended, normoactive bowel sounds and soft to palpation GI Narrative: Positive fluid wave Extremity Extremity Narrative: Pedal pulses are 2+, radial pulses are 2+, trace to 1+ bilateral lower extremity edema, no cyanosis or clubbing Skin no rashes or lesions noted, no wounds, skin turgor normal, no jaundice, no petechiae and no mottling Neuro oriented x3, CN's II-XII intact bilaterally, moves all extremities and no focal motor deficits Neuro Narrative: Patient moves independently without assistance in the bed and is able to sit up independently, no significant weakness is noted Speech: speech normal Psych affect normal Psych Narrative: Contact is good, patient is very pleasant, interacts appropriately Assessment & Plan Assessment/Plan (1) Systolic dysfunction: (2) Right ventricular dysfunction: (3) Hypoxia: (4) Pulmonary emboli: (5) Pleural effusion on right: (6) Acute CHF: (7) Elevated serum creatinine: (8) Hypokalemia: PLAN: Plan Exertional hypoxia secondary to pleural effusion and decompensated right and left ventricular dysfunction -Echocardiogram is markedly abnormal with an EF of 15 to 20% with severe global left ventricular dysfunction, severe decreased right ventricular systolic function with a dilated right ventricle, severe eccentric mitral valve insufficiency, small pericardial effusion and moderate left pleural effusion -Continue IV diuretics but transition to Lasix drip from bolus Lasix -Check every 6 hour BMP -Continue to monitor on telemetry -Monitor daily weights -Fluid restriction -Salt restriction -Start low-dose Coreg -Start low-dose Jardiance at 10 mg daily -Stop statin--> cholesterol with total cholesterol 120/HDL 61/LDL 42/triglycerides 84 -Rule out viral etiology and check COVID and flu as well as respiratory viral panel -If blood pressure remains stable and renal function is stable with addition of Coreg will initiate low-dose lisinopril tomorrow -Cardiac enzymes are unremarkable -Suspect this is likely a nonischemic cardiomyopathy -Patient is currently on 2 L nasal cannula with oxygen saturations at 95% -Highly likely not infectious as procalcitonin is less than 0.04 -Cardiology consultation is pending Pulmonary embolus -Continue heparin drip -Will transition to Eliquis once we preclude the need for any further invasive studies being required with regards to her cardiac function Large right pleural effusion -Exudative per lights criteria however patient had received Lasix prior which could cause this to be exudative -Other processes need to be ruled out -Procalcitonin is unremarkable -Cultures are pending -Check autoimmune workup -Check sed rate CRP -Anticipate this is likely related to heart failure with EF being 15 to 20% Acute combined right and left ventricular dysfunction causing decompensated heart failure -Treatment as noted above -Check TSH -Cardiology consult is pending Hypokalemia -60 mill equivalents of p.o. potassium with ongoing diuresis -Repeat lab in a.m. -Will check a.m. magnesium level Elevated serum creatinine -Elevation is mild -Baseline is unclear -Will continue to monitor to see if this is her baseline or if her creatinine improves with diuresis as she is likely off the Starling curve Hyperbilirubinemia -Suspect related to passive congestion due to heart failure -Will monitor Asthma -Diagnosed after she had COVID several years ago -Patient had no pulmonary issues prior to this -Continue as needed albuterol -Continue Singulair -I-S -Continue budesonide therapy Tachycardia -Likely related to her decompensated heart failure and PE -Continue to monitor History of Hodgkin's lymphoma -Diagnosis at age 17 -Treated with chemotherapy and in remission Depression/anxiety -Continue home Xanax -Continue home Zoloft DVT prophylaxis -Continue heparin drip CODE STATUS -Full code is verified on admission Charges/Coding Visit Charges Inpatient E&M: 01505 [facility] L3
[2023-03-11 14:57] LABS: Partial Thromboplast Time 72.6 Seconds (24.1-36.2)
--- NOTE | 2023-03-11 15:39 | CON.PCM.CA_ITS ---
Assessment & Plan Assessment/Plan (1) Right ventricular dysfunction: (2) Systolic dysfunction: (3) Pleural effusion on right: (4) Acute CHF: QUALIFIERS: Heart failure type: systolic Qualified Code(s): I50.21 - Acute systolic (congestive) heart failure PLAN: Plan Assessment: #1 acute decompensated systolic heart failure: New onset #2 severe biventricular failure. #3 PE: Right-sided subsegmental #4 CHIDI: Likely cardiorenal #5 hypertension #6 pleural effusion status post thoracentesis as detailed above Plan Continue with IV Lasix, currently she is on 40 mg IV twice daily Continue to replace electrolytes as per protocol, keep potassium above 4 and magnesium above 2. Continue with heparin drip. Continue to monitor on telemetry. Patient was started on Coreg 3.125 mg twice daily. Patient creatinine is trending down today after getting diuresed. Continue to monitor creatinine Follow-up on the thoracentesis fluid analysis. Will consider starting Entresto and Farxiga once creatinine is back to baseline. Will continue to maximize guideline directed therapy for heart failure as blood pressure and heart rate tolerates. Patient will need left heart catheterization for ischemic evaluation once she is euvolemic and able to lie flat. Rule out COVID, obtain ESR and CRP, autoimmune workup has been ordered. Patient probably would need LifeVest upon discharge. Patient may need cardiac MRI if ischemic workup is negative. Will continue to follow-up HPI Consult Data Date of Consult: 03/11/23 HPI Narrative Reason for Consultation: Congestive heart failure HPI Narrative: AMA DUNAWAY, is a 52 F who presents shortness of breath. A 52-year-old female patient with a history of severe COVID infection twice in the past and asthma was being having shortness of breath for the last month. She said for the last month she has been having shortness of breath which has been getting worse however it was thought that her shortness of breath is bec ause of asthma for which she has been on nebulizers and rescue inhalers without any help. For the last 2 weeks she started gaining weight, getting restless and developed swelling in both legs. She complains of shortness of breath upon minimal exertion and for the last few days it has been happening even while at rest, she also has orthopnea and PND's, bilateral lower extremity edema, weight gain. She denied any chest pain, denied palpitations, denied fever, denied chills, denied cough, denied syncope. She denied any previous cardiac history. Upon presentation she was hypoxemic on room air with O2 sat in the 70s. A CTA of the chest showed a right lower lobe segmental and subsegmental pulmonar y emboli, right-sided pleural effusion, small to medium left pleural effusion, small to medium pericardial effusion with mild cardiomegaly, small to medium volume ascites, and body wall edema and anasarca. A right-sided thoracentesis was able to be procured yesterday at which time 1820 cc of clear fluid was drained. EKG showed sinus tachycardia with nonspecific ST-T wave changes. Troponins were negative. Creatinine was elevated at 1.5 An echocardiogram this morning shows an EF of 15 to 20% with severe global left ventricular dysfunction, severe decreased right ventricular systolic function with a dilated right ventricle, severe eccentric mitral valve insufficiency, small pericardial effusion and moderate left pleural effusion. Patient has been on IV Lasix since admission, she feels much better, her lower extremity edema has improved significantly. She also was placed on IV heparin drip for treatment of PE. Currently she is resting in bed comfortably, denied chest pain, said her wilberto thing is much better. [facility] Medical History (Updated 03/11/23 @ 15:[address] Yue Kumar MD) Anxiety Asthma Former tobacco use GERD (gastroesophageal reflux disease) Hx of Hodgkins lymphoma Migraines Home Medications albuterol sulfate 2.5 mg/3 mL (0.083 %) solution for nebulization 2.5 mg con tinuous nebulization Q8H PRN shortness of breath or wheezing 03/10/23 [History Last Taken Unknown] alprazolam 0.5 mg tablet (Xanax) 0.5 mg PO BID PRN anxiety 03/10/23 [History Last Taken 03/09/23] cholecalciferol (vitamin D3) 1,250 mcg (50,000 unit) capsule 1,250 mcg PO QWEEK SUPPLEMENT 03/10/23 [History Last Taken Unknown] fluticasone furoate 100 mcg-vilanterol 25 mcg/dose inhalation powder (Breo Ellipta) 1 inh inhalation DAILY SHORTNESS OF BREATH/WHEEZING 03/10/23 [History Last Taken Unknown] montelukast 5 mg chewable tablet 5 mg PO QPM ASTHMA 03/10/23 [History Last Taken Unknown] sertraline 50 mg tablet 50 mg PO DAILY DEPRESSION 03/10/23 [History Last Taken Unknown] Allergy/AdvReac Type Severity Reaction Status Date / Time No Known Allergies Allergy Verified 03/10/23 14:10 Family History (Updated 03/10/23 @ 18:[address] Yadira Wiggins MD) Mother Heart disease Hypertension Father Heart disease Hypertension CVA (cerebral vascular accident) Surgical History History of vascular surgery Hx of section Social History (Updated 03/10/23 @ 18:[address] Yadira Wiggins MD) household members: spouse Smoking Status: Former smoker alcohol intake: never substance use type: does not use ROS ROS Narrative 12 point review of systems were obtained, negative other than what mentioned HPI. Physical Exam Const alert, oriented x3 and no apparent distress HEENT normocephalic and head/scalp atraumatic Eyes PERRL and EOMs intact bilaterally Neck full ROM and supple Chest inspection of chest normal and palpation of chest normal Resp normal respiratory effort Effort and Inspection: Negative for uses accessory muscles Auscultation: crackles and rales Cardio regular rate, regular rhythm, S1 normal heart sound and S2 normal heart sound GI normal to inspection, nondistended, normoactive bowel sounds and soft to palpation Extremity no calf tenderness General Extremity: edema bilateral Psych mental status grossly normal and thought process normal Risk Stratification Risk Stratification Applicable: No Objective Data Vital Signs: Vital Signs Temp Pulse Resp BP Pulse Ox O2 Del Method O2 Flow Rate 97.4 F L 109 H 18 102/85 H 95 Nasal Cannula 2 03/11/23 09:40 03/11/23 09:42 03/11/23 09:40 03/11/23 09:40 03/11/23 10:20 03/11/23 14:00 03/11/23 14:00 Oxygen Flow Rate (L/min) 2 Oxygen Delivery Method Nasal Cannula Weight: 152 lb 5.431 oz Body Mass Index (BMI) 23.8 Intake & Output: Intake and Output for Last 24 Hours 03/09/23 03/10/23 03/11/23 23:59 23:59 23:59 Intake Total 0.16 / 220.16 530 / 530 Balance 0.16 / 220.16 530 / 530 Lab / Micro Data 03/11/23 08:43 03/11/23 08:43 Labs: Laboratory Results - last 24 hr 03/10/23 15:14: PT 14.9, INR 1.2, APTT 28.5, D-Dimer Quant (PE/DVT) 1.80 H*, Magnesium 1.9, Lactate Dehydrogenase 297 H, Total Protein 7.4, Globulin 3.8, Albumin/Globulin Ratio 0.9 03/10/23 16:01: Urine Color Yellow, Urine Clarity Sl. Cloudy, Urine pH 5.0, Ur Specific [place] 1.025, Urine Protein 30 H, Urine Glucose (UA) Normal, Urine Ket ones 5 H, Urine Occult Blood 250 H, Urine Nitrite Negative, Urine Bilirubin 1 H, Urine Urobilinogen 1 H, Ur Leukocyte Esterase 100 H, Urine RBC 50-100 SEEN, Urine WBC 5-10 SEEN, Ur Squamous Epith Cells 10-25 SEEN, Urine Bacteria 1+, Urine Mucus 0 SEEN 03/10/23 16:37: Fluid Source THORACENTESIS, Fluid Color YELLOW, Fluid Appearance CLEAR, Fluid WBC 0.082, Fluid RBC 55, Fluid Tot Cell Count 0.092 H, Fld Polynuclear WBCs # 0.002, Fld Polynuclear WBCs % 2.4, Fluid Mononuclear WBCs 0.080, Fld Mononuclear WBCs % 97.6, Fluid Neutrophils 5, Fluid Lymphocytes 12, Fluid Monocytes 79, Fluid Macrophages 4, Fl Pathologist Comment May follow, Fl uid Glucose 125 H, Fluid Total Protein 2.5, Fluid LDH 83, Fluid Comment 2 SEE COMMENT 03/10/23 18:25: Procalcitonin < 0.04 03/10/23 21:18: Troponin I High Sens 30 03/10/23 23:18: Troponin I High Sens 24 03/11/23 00:50: APTT 80.0 H 03/11/23 03:10: Troponin I High Sens 31 03/11/23 08:43: WBC 7.8, RBC 4.67, Hgb 11.4 L, Hct 38.5, MCV 82.4, MCH 24.4 L, MCHC 29.6 L, RDW Std Deviation 54.0 H, RDW Coeff of [place]y 19.2 H, Plt Count 270, MPV 10.0, Immature Gran % (Auto) 0.400, Neut % (Auto) 75.9 H, Lymph % (Auto) 10.7 L, Price % (Auto) 12.3 H, Eos % (Auto) 0.4, Baso % (Auto) 0.3, Absolute Neuts (auto) 5.9, Absolute Lymphs (auto) 0.83, Nucleated RBC % 0, APTT 71.7 H, Sodium 137, Potassium 3.2 L, Chloride 101, Carbon Dioxide 29.0, Anion Gap 7, BUN 20 H, Creatinine 1.38 H, Estim Creat Clear Calc 45.85, Est GFR (MDRD) Af Amer 51 L, Est GFR (MDRD) Non-Af 42 L, BUN/Creatinine Ratio 14.5, Glucose 120 H, Calcium 8.6, Total Bilirubin 1.80 H, AST 22, ALT 24, Alkaline Phosphatase 116, Total Protein 6.1 L, Albumin 2.9 L, Globulin 3.2, Albumin/Globulin Ratio 0.9, Triglycerides 84, Cholesterol 120, LDL Cholesterol 42, VLDL Cholesterol 17, HDL Cholesterol 61 03/11/23 14:31: APTT 72.6 H Rhythm Strip Rhythm Strip: Sinus Tach Rate: 130 Ectopy: None Cardiology Labs/Tests 03/10/23 15:14: PT 14.9, INR 1.2, APTT 28.5, D-Dimer Quant (PE/DVT) 1.80 H*, Magnesium 1.9 03/10/23 16:01: Urine Color Yellow, Urine Clarity Sl. Cloudy, Urine pH 5.0, Ur Specific [place] 1.025, Urine Protein 30 H, Urine Glucose (UA) Normal, Urine Ketones 5 H, Urine Occult Blood 250 H, Urine Nitrite Negative, Urine Bilirubin 1 H, Urine Urobilinogen 1 H, Ur Leukocyte Esterase 100 H, Urine RBC 50-100 SEEN, Urine WBC 5-10 SEEN 03/11/23 00:50: APTT 80.0 H 03/11/23 08:43: WBC 7.8, RBC 4.67, Hgb 11.4 L, Hct 38.5, MCV 82.4, MCH 24.4 L, MCHC 29.6 L, Plt Count 270, MPV 10.0, Immature Gran % (Auto) 0.400, Neut % (Auto) 75.9 H, Lymph % (Auto) 10.7 L, Price % (Auto) 12.3 H, Eos % (Auto) 0.4, Baso % (Auto) 0.3, Absolute Neuts (auto) 5.9, Nucleated RBC % 0, APTT 71.7 H, Sodium 137, Potassium 3.2 L, Chloride 101, Carbon Dioxide 29.0, Anion Gap 7, BUN 20 H, Creatinine 1.38 H, Est GFR (MDRD) Af Amer 51 L, Est GFR (MDRD) Non-Af 42 L , BUN/Creatinine Ratio 14.5, Glucose 120 H, Calcium 8.6, Total Bilirubin 1.80 H, Triglycerides 84, Cholesterol 120, LDL Cholesterol 42, VLDL Cholesterol 17, HDL Cholesterol 61 03/11/23 14:31: APTT 72.6 H Rhythm: EKG: ECHO: Stress Test: Cardiac Cath: PCI: CT Surgery: Holter monitor: EPS: PPM: CXR: Chest CT Scan: Radiography Diagnostic Testing: Radiology Impression Chest X-Ray 03/10/23 15:30 IMPRESSION: Grossly stable large right pleural effusion. Cardiomegaly. Electronically Signed: Cortney Whitehead MD at 15:44 EST , Abdomen/Pelvis CT 03/10/23 16:23 IMPRESSION: 1. Right lower lobe segmental and subsegmental pulmonary artery emboli are identified. Possible small segmental right middle lobe pulmonary artery emboli are also identified. 2. Decreased size of right side pleural effusion, now moderate with patchy airspace disease in the right lung which may be in part reinflation edema and/or atelectasis versus pneumonia. 3. Small to medium left pleural effusion with minimal airspace disease, also perhaps atelectasis or pneumonia and likely minimal pulmonary edema. 4. Small to medium pericardial effusion and mild cardiomegaly. 5. Small to medium volume ascites of uncertain etiology. 6. Mild body wall edema/anasarca. 7. The left tubal ligation clip is in an expected location. There is a right-sided ligation clip in the superior peritoneum posterior to the liver. Electronically Signed: Cuba Silva DO at 17:52 EST , Chest CTA 03/10/23 16:23 IMPRESSION: 1. Right lower lobe segmental and subsegmental pulmonary artery emboli are identified. Possible small segmental right middle lobe pulmonary artery emboli are also identified. 2. Decreased size of right side pleural effusion, now moderate with patchy airspace disease in the right lung which may be in part reinflation edema and/or atelectasis versus pneumonia. 3. Small to medium left pleural effusion with minimal airspace disease, also perhaps atelectasis or pneumonia and likely minimal pulmonary edema. 4. Small to medium pericardial effusion and mild cardiomegaly. 5. Small to medium volume ascites of uncertain etiology. 6. Mild body wall edema/anasarca. 7. The left tubal ligation clip is in an expected location. There is a right-sided ligation clip in the superior peritoneum posterior to the liver. Electronically Signed: Cuba Silva DO at 17:51 EST , ADDENDUM: 03/10/23 1806 IMPRESSION: 1. Right lower lobe segmental and subsegmental pulmonary artery emboli are identified. Possible small segmental right middle lobe pulmonary artery emboli are also identified. 2. Decreased size of right side pleural effusion, now moderate with patchy airspace disease in the right lung which may be in part reinflation edema and/or atelectasis versus pneumonia. 3. Small to medium left pleural effusion with minimal airspace disease, also perhaps atelectasis or pneumonia and likely minimal pulmonary edema. 4. Small to medium pericardial effusion and mild cardiomegaly. 5. Small to medium volume ascites of uncertain etiology. 6. Mild body wall edema/anasarca. 7. The left tubal ligation clip is in an expected location. There is a right-sided ligation clip in the superior peritoneum posterior to the liver. N.B. : The above Results were Read Back by Cuba Silva DO to Hilario Al MD, and understanding confirmed on 03/10/2023 17:59:56 (ET). Electronically Signed: Cuba Silva DO at 17:51 EST , Chest X-Ray 03/10/23 17:12 IMPRESSION: 1. Decreased size of right pleural effusion since prior examination with improved aeration of the right lung. Moderate degree of atelectasis and/or pneumonia in the right lung and residual small to medium pleural fluid. 2. Small to medium left pleural effusion with minimal airspace disease, perhaps atelectasis or pneumonia. 3. Cardiomegaly and small pericardial effusion better demonstrated on comparison examination. Electronically Signed: Cuba Silva DO at 17:44 EST , Chest X-Ray 03/10/23 18:22 IMPRESSION: 1. Bilateral pleural effusions similar to the most recent prior examination with associated airspace disease which may be in part atelectasis and/or pneumonia. 2. Cardiomegaly and small pericardial effusion. Electronically Signed: Cuba Silva, at 18:58 EST , Echocardiogram 03/10/23 19:40 Interpretation Summary The estimated ejection fraction is 15-20% %. Severe global left ventricular systolic dysfunction. There is severe global hypokinesis of the left ventricle. Severely decreased right ventricular systolic function Mildly dilated right ventricle. Unable to assess diastolic dysfunction. Moderately severe (3+) eccentric mitral valve insufficiency. Small pericardial effusion. Moderate size left pleural effusion. Ordering Physician: Yadira Wiggins Referring Physician: Dereck Mejia Performed By: Jillian Zaragoza, MINDA, RVT
[2023-03-11 15:58] LABS: CRP 8.05 mg/L (0.0-3.0); Rheumatoid Factor < 10.0 IU/mL (<15)
[2023-03-11 16:09] LABS: Erythrocyte Sedimentation Rate 5 mm/hr (0-30)
[2023-03-11] MEDS: Potassium Chloride Oral Tablet 20 MEQ 60 MEQ PO (16:12)
[2023-03-11] MEDS: Furosemide 500 MG in Empty Viaflex 50 mL 1 EACH CONT INF (16:13)
[2023-03-11 17:23] LABS: Anion Gap 8 (5-15); BUN 22 mg/dL (7-18); BUN/Creat Ratio 14.8 RATIO (10-20); Calcium,Total 8.8 mg/dL (8.5-10.1); Chloride 101 mmol/L (98-107); Creatinine, Serum 1.49 mg/dL (0.55-1.02); EST Glomerular Filtration Rate 39 mL/min (>60); Est Glom Filt Rate - Afr Amer 47 mL/min (>60); Estimated Creatinine Clearance 42.46 ml/min; Glucose 111 mg/dL (74-106); Potassium 3.3 mmol/L (3.5-5.1); Sodium Level 136 mmol/L (136-145)
[2023-03-11] MEDS: HEPARIN/D5w 25,000 UNITS 25,000 UNITS/250 ML IV.SOLN. 9 UNITS CONT INF (18:54)
[2023-03-11 20:56] LABS: Partial Thromboplast Time 78.4 Seconds (24.1-36.2)
[2023-03-11 21:01] LABS: Anion Gap 7 (5-15); BUN 22 mg/dL (7-18); BUN/Creat Ratio 13.4 RATIO (10-20); Calcium,Total 8.8 mg/dL (8.5-10.1); Chloride 102 mmol/L (98-107); Creatinine, Serum 1.64 mg/dL (0.55-1.02); EST Glomerular Filtration Rate 35 mL/min (>60); Est Glom Filt Rate - Afr Amer 42 mL/min (>60); Estimated Creatinine Clearance 38.58 ml/min; Glucose 121 mg/dL (74-106); Potassium 3.7 mmol/L (3.5-5.1); Sodium Level 137 mmol/L (136-145)
--- NOTE | 2023-03-11 21:13 | NURSING ---
PTT 78.4 at 2026, reading within goal, no changes to rate needed. Will remain at 9 ml/hr with next PTT draw at 0555, with AM labs.
[2023-03-11] MEDS: ALPRAZolam 0.5 MG Tablet PO (22:12)
[2023-03-11] MEDS: Montelukast 10 MG Tablet 5 MG PO (22:12)
[2023-03-11] MEDS: Carvedilol 3.125 MG TABLET PO (22:13)
[2023-03-12] VITALS (9 sets, daily range): BP systolic 91–124; BP diastolic 68–94; PULSE 77–124; RESP 16–20; TEMP 36.2–36.8; O2SAT 96–100; BMI 23.9
--- NOTE | 2023-03-12 06:05 | RAD_ITS ---
STUDY: X-RAY CHEST REASON FOR EXAM: Female, 52 years old. assess for volume overload TECHNIQUE: Single AP portable view of the chest. COMPARISON: 03/10/2023 FINDINGS: The lungs are clear and expanded. Large right pleural effusion and moderate left pleural effusion with bibasilar atelectasis. There is moderate cardiac enlargement. Normal mediastinum and elin. Normal visualized pulmonary arteries. Normal visualized aortic arch and descending thoracic aorta. Normal visualized thoracic spine. Normal visualized ribs, clavicles, and shoulders. There is no demonstrated abnormality of the visualized soft tissue structures of the upper abdomen. RAD/Chest 1 View (Portable) IMPRESSION: 1. Large right pleural effusion and moderate left pleural effusion with bibasilar atelectasis. 2. Cardiomegaly. Electronically Signed: Cayden Leger MD at 23:01 EST ,
[2023-03-12 06:11] LABS: Absolute Lymphocyte Count 0.81 X10^3/uL (0.83-4.51); Absolute Neutrophil Count 4.8 X10^3/uL (2.0-7.7); Basophil# 0.02 X10^3/uL; Basophil% 0.3 % (0-1); Eosinophil# 0.06 X10^3/uL; Eosinophils% 0.9 % (0-5); Hematocrit 36.9 % (37-47); Hemoglobin 10.9 g/dL (12.0-15.0); Lymphocyte # 0.81 X10^3/ul (0.83-4.51); Lymphocyte % 12.5 % (19-41); Mean Corp Hgb Conc 29.5 g/dL (32-36); Mean Corpuscular Hgb 25.1 pg (27.0-32.0); Mean Platelet Vol. 9.7 fl (6.2-12.0); Monocyte# 0.77 X10^3/uL; Monocyte% 11.9 % (0-10); NRBC Flagged by Analyzer 0 % (0-5); Neutrophil # 4.81 X10^3/uL (2.7-7.7); Neutrophil % 74.1 % (47-70); Platelet Count 225 K/mm3 (150-450); RBC Distribution Width SD 55.4 fl (35.1-43.9); Red Blood Count 4.34 M/mm3 (4.2-5.4); White Blood Count 6.5 K/mm3 (4.4-11.0)
[2023-03-12 06:35] LABS: Partial Thromboplast Time 111.5 Seconds (24.1-36.2)
[2023-03-12 06:46] LABS: ALB/GLOB Ratio 0.9 RATIO (0.9-2.4); AST(SGOT) 20 U/L (15-37); Alanine Aminotransfer ALT/SGPT 23 U/L (13-56); Albumin, Serum 2.8 g/dL (3.2-5.0); Alkaline Phosphatase 119 U/L (45-117); Anion Gap 6 (5-15); BUN 23 mg/dL (7-18); BUN/Creat Ratio 15.3 RATIO (10-20); Calcium,Total 8.6 mg/dL (8.5-10.1); Chloride 103 mmol/L (98-107); EST Glomerular Filtration Rate 39 mL/min (>60); Est Glom Filt Rate - Afr Amer 47 mL/min (>60); Estimated Creatinine Clearance 42.18 ml/min; Globulin 3.1 g/dL (2.2-4.2); Glucose 112 mg/dL (74-106); Magnesium 1.7 mg/dL (1.6-2.6); Phosphorus 3.6 mg/dL (2.5-4.9); Potassium 3.2 mmol/L (3.5-5.1); Protein, Total 5.9 g/dL (6.4-8.2); Sodium Level 138 mmol/L (136-145); Thyroid Stim Hormone (TSH) 5.96 uIU/mL (0.358-3.74)
--- NOTE | 2023-03-12 06:56 | NURSING ---
aPTT at 0650 111.5, infusion placed on hold at 0654. To be restarted at 0854 at a reduced rate of 6 ml/hr. Oncoming nurse to be informed.
[2023-03-12] MEDS: Budesonide Respules 0.5 MG/2 ML AMPUL.NEB. INHALATION ×2 (07:00→20:46)
[2023-03-12 08:03] LABS: T4 Free Direct 0.92 ng/dL (0.76-1.46)
[2023-03-12] MEDS: Furosemide 40 MG/4 ML Vial IV (09:47)
[2023-03-12] MEDS: Carvedilol 3.125 MG TABLET PO ×2 (09:49→21:02)
[2023-03-12] MEDS: Empagliflozin 10 MG Tablet PO (09:49)
[2023-03-12] MEDS: Aspirin 81 MG TAB.CHEW PO (09:49)
[2023-03-12] MEDS: Sertraline 50 MG Tablet PO (09:49)
[2023-03-12] MEDS: Potassium Chloride Oral Tablet 20 MEQ 60 MEQ PO (09:51)
[2023-03-12] MEDS: Magnesium Sulfate 2 GM in Dextrose 5%-Water (100mL Bag) 100 ML IV (09:56)
--- NOTE | 2023-03-12 09:57 | PN.HOSP_ITS ---
Reason for Visit Reason for Visit: Shortness of breath/orthopnea/weight gain Subjective Subjective Patient states her breathing overall is much better. She indicates she still becomes short of breath with exertion however that is better than it was on presentation. She does become fairly fatigued easily. States the medicines are making her somewhat nauseated intermittently. She is unable to tell me which medications are doing this. Indicates she had a good night sleep. Objective Data Objective Data Vital Signs: Vital Signs Temp Pulse Resp BP Pulse Ox O2 Del Method O2 Flow Rate 97.4 F L 90 18 107/82 H 96 Room Air 1 03/12/23 09:39 03/12/23 09:39 03/12/23 09:39 03/12/23 09:39 03/12/23 09:39 03/12/23 09:39 03/12/23 07:00 Oxygen Flow Rate (L/min) 1 Oxygen Delivery Method Room Air Weight: 69.3 kg Body Mass Index (BMI) 23.9 Intake & Output: Intake and Output for Last 24 Hours 03/10/23 03/11/23 03/12/23 23:59 23:59 23:59 Intake Total 0.16 / 220.16 929.0 / 1049.0 228 / 228 Output Total Balance 0.16 / 220.16 929.0 / 1019.0 198 / 198 Lab / Micro Data 03/12/23 06:04 03/12/23 06:04 Labs: Laboratory Results - last 24 hr 03/11/23 08:43: ESR 5, C-React Prot Ext Range 8.05 H, Rheumatoid Factor < 10.0 03/11/23 14:31: APTT 72.6 H 03/11/23 16:15: Sodium 136, Potassium 3.3 L, Chloride 101, Carbon Dioxide 27.0, Anion Gap 8, BUN 22 H, Creatinine 1.49 H, Estim Creat Clear Calc 42.46, Est GFR (MDRD) Af Amer 47 L, Est GFR (MDRD) Non-Af 39 L, BUN/Creatinine Ratio 14.8, Glucose 111 H, Calcium 8.8 03/11/23 20:27: APTT 78.4 H, Sodium 137, Potassium 3.7, Chloride 102, Carbon Dioxide 28.0, Anion Gap 7, BUN 22 H, Creatinine 1.64 H, Estim Creat Clear Calc 38.58, Est GFR (MDRD) Af Amer 42 L, Est GFR (MDRD) Non-Af 35 L, BUN/Creatinine Ratio 13.4, Glucose 121 H, Calcium 8.8 03/12/23 06:04: WBC 6.5, RBC 4.34, Hgb 10.9 L, Hct 36.9 L, MCV 85.0, MCH 25.1 L, MCHC 29.5 L, RDW Std Deviation 55.4 H, RDW Coeff of Endy 19.0 H, Plt Count 225, MPV 9.7, Immature Gran % (Auto) 0.300, Neut % (Auto) 74.1 H, Lymph % (Auto) 12.5 L, [place] % (Auto) 11.9 H, Eos % (Auto) 0.9, Baso % (Auto) 0.3, Absolute Neuts (auto) 4.8, Absolute Lymphs (auto) 0.81 L, Nucleated RBC % 0, APTT 111.5 H*, Sod ium 138, Potassium 3.2 L, Chloride 103, Carbon Dioxide 29.0, Anion Gap 6, BUN 23 H, Creatinine 1.50 H, Estim Creat Clear Calc 42.18, Est GFR (MDRD) Af Amer 47 L, Est GFR (MDRD) Non-Af 39 L, BUN/Creatinine Ratio 15.3, Glucose 112 H, Calcium 8.6, Phosphorus 3.6, Magnesium 1.7, Total Bilirubin 1.20 H, AST 20, ALT 23, Alkaline Phosphatase 119 H, Total Protein 5.9 L, Albumin 2.8 L, Globulin 3.1, Albumin/Globulin Ratio 0.9, TSH 5.96 H, Free T4 0.92 Micro: Microbiology 03/11/23 15:40 Mucosa - Nose Respiratory Panel (PCR) - Final 03/11/23 15:55 Nasal Secretion SARS-CoV-2 Antigen (Rapid) - Final Radiography Diagnostic Testing: Radiology Impression Echocardiogram 03/10/23 19:40 Interpretation Summary The estimated ejection fraction is 15-20% %. Severe global left ventricular systolic dysfunction. There is severe global hypokinesis of the left ventricle. Severely decreased right ventricular systolic function Mildly dilated right ventricle. Unable to assess diastolic dysfunction. Moderately severe (3+) eccentric mitral valve insufficiency. Small pericardial effusion. Moderate size left pleural effusion. Ordering Physician: Yadira Wiggins Referring Physician: Dereck Mejia Performed By: Jillian Zaragoza, MINDA, RVT Rhythm Strip Rhythm Strip: Sinus Tach Rate: 130 Ectopy: None Physical Exam Const alert, oriented x3, no apparent distress, average body habitus and well nourished; Negative for healthy appearing Constitutional Narrative: Middle-aged, ill-appearing, white female, sitting up in bed, texting on her phone and watching television, conversational dyspnea is resolved at rest, breathing appears comfortable and I put her on room air, nontoxic r toxic HEENT head/scalp atraumatic and moist oral mucous membranes HEENT Narrative: Mallampati is 2, no thrush Head and Scalp: normocephalic Resp normal respiratory effort, no retractions, no use of accessory muscles and No clear to auscultation bilaterally Resp Narrative: No significant tachypnea or conversational dyspnea today, slight crackles in right base with crackles in left base resolved and otherwise clear Auscultation: crackles; Negative for rhonchi or wheezes Cardio regular rhythm, S1 normal heart sound, S2 normal heart sound, no murmurs, no rub, no gallops and no clicks Cardio Narrative: Mild tachycardia GI normal to inspection, nondistended, normoactive bowel sounds and soft to palpation Extremity no clubbing, cyanosis or edema Extremity Narrative: Pedal pulses are 2+, pedal edema has resolved Skin no rashes or lesions noted, no wounds, skin turgor normal, no jaundice, no petechiae and no mottling Neuro oriented x3, moves all extremities and no focal motor deficits Neuro Narrative: Bed mobility is independent Speech: speech normal Psych affect normal Psych Narrative: Contact is good, patient is very pleasant, interacts appropriately Assessment & Plan Assessment/Plan (1) Systolic dysfunction: (2) Right ventricular dysfunction: (3) Hypoxia: (4) Pulmonary emboli: (5) Pleural effusion on right: (6) Acute CHF: QUALIFIERS: Heart failure type: systolic Qualified Code(s): I50.21 - Acute systolic (congestive) heart failure (7) Elevated serum creatinine: (8) Hypokalemia: PLAN: Plan Exertional hypoxia secondary to pleural effusion and decompensated right and left ventricular dysfunction -Oxygenation is improving and patient is now down to room air with rest having oxygen saturations of 96% -Will need to assess ambulatory pulse ox -Echocardiogram is markedly abnormal with an EF of 15 to 20% with severe global left ventricular dysfunction, severe decreased right ventricular systolic function with a dilated right ventricle, severe eccentric mitral valve insufficiency, small pericardial effusion and moderate left pleural effusion Continue IV Lasix but decrease from 40 mg twice daily to 40 mg daily -Monitor daily weights -I's and O's are inaccurate -Fluid restriction -Salt restriction -Continue low-dose Coreg -Continue low-dose Jardiance at 10 mg daily -COVID/flu/respiratory viral panel are all negative -Continue Coreg 3.125 twice daily -No room currently with blood pressure to add Entresto or lisinopril -Cardiac enzymes are unremarkable -Suspect this is likely a nonischemic cardiomyopathy -Cardiology is following and plan is for cardiac catheterization on Monday to rule out ischemic cardiomyopathy Pulmonary embolus -Continue heparin drip -Will transition to Eliquis once we preclude the need for any further invasive studies being required with regards to her cardiac function Large right pleural effusion -Exudative per lights criteria however patient had received Lasix prior which could cause this to be exudative -Other processes need to be ruled out -Procalcitonin is unremarkable -Cultures are pending -Check autoimmune workup -ANCA's are pending -Rheumatoid factor is unremarkable -Sed rate and CRP are not impressive -Anticipate this is likely related to heart failure with EF being 15 to 20% Acute combined right and left ventricular dysfunction causing decompensated heart failure -Treatment as noted above -TSH was slightly high at 5.96 however free T4 is 0.92 indicating euthyroid sick syndrome -Cardiology following Hypokalemia - will repeat oral replacement today as potassium is 3.2 -Would like to see her greater than 4 with depressed EF -Medium level was within normal limits at 1.7 however I would like to see her above 2 with depressed EF so she was given 2 g bolus -Repeat lab in a.m. Elevated serum creatinine -Current serum creatinine is 1.5 and relatively stable since admission -Baseline is unclear -Will continue to monitor to see if this is her baseline or if her creatinine improves with diuresis as she is likely off the [place] curve Hyperbilirubinemia -Suspect related to passive congestion due to heart failure -Trending down Asthma -Diagnosed after she had COVID several years ago -Patient had no pulmonary issues prior to this -Continue as needed albuterol -Continue Singulair -I-S -Continue budesonide therapy Tachycardia -Likely related to her decompensated heart failure and PE -Still elevated especially with activity -Continue beta-bhumika as ordered -Continue to monitor History of Hodgkin's lymphoma -Diagnosis at age 17 -Treated with chemotherapy and in remission Depression/anxiety -Continue home Xanax -Continue home Zoloft DVT prophylaxis -Continue heparin drip CODE STATUS -Full code is verified on admission Charges/Coding Visit Charges Inpatient E&M: 13346 Subs Hosp L2
[2023-03-12 11:08] LABS: Anion Gap 7 (5-15); BUN 24 mg/dL (7-18); BUN/Creat Ratio 14.3 RATIO (10-20); Chloride 102 mmol/L (98-107); Creatinine, Serum 1.68 mg/dL (0.55-1.02); EST Glomerular Filtration Rate 34 mL/min (>60); Est Glom Filt Rate - Afr Amer 41 mL/min (>60); Estimated Creatinine Clearance 37.66 ml/min; Glucose 166 mg/dL (74-106); Potassium 3.3 mmol/L (3.5-5.1); Sodium Level 139 mmol/L (136-145)
--- NOTE | 2023-03-12 12:34 | PN.CARD_ITS ---
Subjective Subjective Patient was seen and examined today. She feels much better however she continues to be short of breath on minimal ex ertion. She is satting normal on room air Denied chest pain or palpitations. EKG this morning showed a heart rate of 127 bpm due to possible atrial tachycardia/atrial flutter with 2-1 block with short SC and excited pathway/WPW. Also prolonged QTc Creatinine is trending up Patient said she is making a lot of urine however urine output was not charted Objective Data Vital Signs: Vital Signs Temp Pulse Resp BP Pulse Ox O2 Del Method O2 Flow Rate 97.4 F L 90 18 107/82 H 96 Nasal Cannula 2 03/12/23 09:39 03/12/23 09:39 03/12/23 09:39 03/12/23 09:39 03/12/23 09:39 03/12/23 10:00 03/12/23 10:00 Oxygen Flow Rate (L/min) 2 Oxygen Delivery Method Nasal Cannula Weight: 152 lb 12.485 oz Body Mass Index (BMI) 23.9 Intake & Output: Intake and Output for Last 24 Hours 03/10/23 03/11/23 03/12/23 23:59 23:59 23:59 Intake Total 0.16 / 220.16 929.0 / 1049.0 712 / 712 Output Total 380 / 380 Balance 0.16 / 220.16 929.0 / 1019.0 332 / 332 Lab / Micro Data 03/12/23 06:04 03/12/23 10:28 Labs: Laboratory Results - last 24 hr 03/11/23 08:43: ESR 5, C-React Prot Ext Range 8.05 H, Rheumatoid Factor < 10.0 03/11/23 14:31: APTT 72.6 H 03/11/23 16:15: Sodium 136, Potassium 3.3 L, Chloride 101, Carbon Dioxide 27.0, Anion Gap 8, BUN 22 H, Creatinine 1.49 H, Estim Creat Clear Calc 42.46, Est GFR (MDRD) Af Amer 47 L, Est GFR (MDRD) Non-Af 39 L, BUN/Creatinine Ratio 14.8, Glucose 111 H, Calcium 8.8 03/11/23 20:27: APTT 78.4 H, Sodium 137, Potassium 3.7, Chloride 102, Carbon Dioxide 28.0, Anion Gap 7, BUN 22 H, Creatinine 1.64 H, Estim Creat Clear Calc 38.58, Est GFR (MDRD) Af Amer 42 L, Est GFR (MDRD) Non-Af 35 L, BUN/Creatinine Ratio 13.4, Glucose 121 H, Calcium 8.8 03/12/23 06:04: WBC 6.5, RBC 4.34, Hgb 10.9 L, Hct 36.9 L, MCV 85.0, MCH 25.1 L, MCHC 29.5 L, RDW Std Deviation 55.4 H, RDW Coeff of Endy 19.0 H, Plt Count 225, MPV 9.7, Immature Gran % (Auto) 0.300, Neut % (Auto) 74.1 H, Lymph % (Auto) 12.5 L, [place] % (Auto) 11.9 H, Eos % (Auto) 0.9, Baso % (Auto) 0.3, Absolute Neuts (auto) 4.8, Absolute Lymphs (auto) 0.81 L, Nucleated RBC % 0, APTT 111.5 H*, Sodium 138, Potassium 3.2 L, Chloride 103, Carbon Dioxide 29.0, Anion Gap 6, BUN 23 H, Creatinine 1.50 H, Estim Creat Clear Calc 42.18, Est GFR (MDRD) Af Amer 47 L, Est GFR (MDRD) Non-Af 39 L, BUN/Creatinine Ratio 15.3, Glucose 112 H, Calcium 8.6, Phosphorus 3.6, Magnesium 1.7, Total Bilirubin 1.20 H, AST 20, ALT 23, Alkaline Phosphatase 119 H, Total Protein 5.9 L, Albumin 2.8 L, Globulin 3.1, Albumin/Globulin Ratio 0.9, TSH 5.96 H, Free T4 0.92 03/12/23 10:28: Sodium 139, Potassium 3.3 L, Chloride 102, Carbon Dioxide 30.0, Anion Gap 7, BUN 24 H, Creatinine 1.68 H, Estim Creat Clear Calc 37.66, Est GFR (MDRD) Af Amer 41 L, Est GFR (MDRD) Non-Af 34 L, BUN/Creatinine Ratio 14.3, Glucose 166 H, Calcium 9.0 Micro: Microbiology 03/11/23 15:40 Mucosa - Nose Respiratory Panel (PCR) - Final 03/11/23 15:55 Nasal Secretion SARS-CoV-2 Antigen (Rapid) - Final Rhythm Strip Rhythm Strip: Sinus Tach Rate: 130 Ectopy: None Cardiology Labs/Tests 03/11/23 14:31: APTT 72.6 H 03/11/23 16:15: Sodium 136, Potassium 3.3 L, Chloride 101, Carbon Dioxide 27.0, Anion Gap 8, BUN 22 H, Creatinine 1.49 H, Est GFR (MDRD) Af Amer 47 L, Est GFR (MDRD) Non-Af 39 L, BUN/Creatinine Ratio 14.8, Glucose 111 H, Calcium 8.8 03/11/23 20:27: APTT 78.4 H, Sodium 137, Potassium 3.7, Chloride 102, Carbon Dioxide 28.0, Anion Gap 7, BUN 22 H, Creatinine 1.64 H, Est GFR (MDRD) Af Amer 42 L, Est GFR (MDRD) Non-Af 35 L, BUN/Creatinine Ratio 13.4, Glucose 121 H, Calcium 8.8 03/12/23 06:04: WBC 6.5, RBC 4.34, Hgb 10.9 L, Hct 36.9 L, MCV 85.0, MCH 25.1 L, MCHC 29.5 L, Plt Count 225, MPV 9.7, Immature Gran % (Auto) 0.300, Neut % (Auto) 74.1 H, Lymph % (Auto) 12.5 L, Branch % (Auto) 11.9 H, Eos % (Auto) 0.9, Baso % (Auto) 0.3, Absolute Neuts (auto) 4.8, Nucleated RBC % 0, APTT 111.5 H*, Sodium 138, Potassium 3.2 L, Chloride 103, Carbon Dioxide 29.0, Anion Gap 6, BUN 23 H, Creatinine 1.50 H, Est GFR (MDRD) Af Amer 47 L, Est GFR (MDRD) Non-Af 39 L, BUN/Creatinine Ratio 15.3, Glucose 112 H, Calcium 8.6, Phosphorus 3.6, Magnesium 1.7, Total Bilirubin 1.20 H 03/12/23 10:28: Sodium 139, Potassium 3.3 L, Chloride 102, Carbon Dioxide 30.0, Anion Gap 7, BUN 24 H, Creatinine 1.68 H, Est GFR (MDRD) Af Amer 41 L, Est GFR (MDRD) Non-Af 34 L, BUN/Creatinine Ratio 14.3, Glucose 166 H, Calcium 9.0 Rhythm: EKG: ECHO: Stress Test: Cardiac Cath: PCI: CT Surgery: Holter monitor: EPS: PPM: CXR: Chest CT Scan: Radiography Diagnostic Testing: Radiology Impression Echocardiogram 03/10/23 19:40 Interpretation Summary The estimated ejection fraction is 15-20% %. Severe global left ventricular systolic dysfunction. There is severe global hypokinesis of the left ventricle. Severely decreased right ventricular systolic function Mildly dilated right ventricle. Unable to assess diastolic dysfunction. Moderately severe (3+) eccentric mitral valve insufficiency. Small pericardial effusion. Moderate size left pleural effusion. Ordering Physician: Yadira Wiggins Referring Physician: Dereck Mejia Performed By: Jillian Zaragoza, MINDA, RVT Assessment & Plan Assessment/Plan (1) Acute CHF: QUALIFIERS: Heart failure type: systolic Qualified Code(s): I50.21 - Acute systolic (congestive) heart failure PLAN: Plan Assessment: #1 possible atrial tachycardia/A flutter with 2:1 block, along with preexcitati on pathway/WPW #2 prolonged QTc #3 acute decompensated systolic heart failure: New onset #4 severe biventricular failure. #5 PE: Right-sided/ subsegmental #6 CHIDI: Likely cardiorenal #7 pleural effusion status post thoracentesis as detailed above Plan An echocardiogram showed an EF of 15 to 20% with severe global left ventricular dysfunction, severe decreased right ventricular systolic function with a dilated right ventricle, severe eccentric mitral valve insufficiency, small pericardial effusion and moderate left pleural effusion. EKG this morning showed a heart rate of 127 bpm likely due to atrial tachycardia/or unlikely atrial flutter with 2-1 block , short SC and excited pathway/WPW. Also prolonged QTc Continue with IV Lasix 40 mg IV daily Continue to replace electrolytes as per protocol, keep potassium above 4 and magnesium above 2. Please give 40 meq of potassium chloride Please give 2 g of magnesium chloride Creatinine is trending up. Consult nephrology Continue to monitor creatinine Strict input output charting. Restrict fluid intake to less than 1.5 L a day Continue with heparin drip. Continue to monitor on telemetry. Given the patient possible preexcitation with underlying possible atrial tachycardia/flutter I would avoid AV chilo blockers in addition to the fact that she is presenting with new onset acute decompensated systolic heart failure, will avoid beta-bhumika due to its negative inotropic effect Patient would need inpatient EP evaluation and management Will consider starting Entresto and Farxiga once creatinine is back to baseline. Will continue to maximize guideline directed therapy for heart failure as blood pressure and heart rate tolerates. Patient will need left heart catheterization for ischemic evaluation once she is euvolemic and able to lie flat. obtain ESR and CRP, autoimmune workup has been ordered. Patient probably would need LifeVest upon discharge. Patient may need cardiac MRI if ischemic workup is negative.
--- NOTE | 2023-03-12 14:02 | PCM.DC.SUM ---
Providers Date of Admission: 03/10/23 Date of Discharge: 03/12/23 Primary Care Physician: Dr. Dereck Mejia, DO Consultations 03/10/23 19:40 Consult: Cardiology Routine Consulting Provider: Yue Kumar Reason for Consult: New onset appearance CHF, Pleural effusion, Small Pericardial effusion EMERGENT Consult: No MD Notified: Yes Date Notified: 03/10/23 Time Notified: 17:57 Method of Notification: Text 03/12/23 13:35 Consult: Nephrology Routine Consulting Provider: Jessica Arevalo Reason for Consult: chidi EMERGENT Consult: No Notified: Yes Date Notified: 03/12/23 Time Notified: 13:35 Method of Notification: Answering Service Reason For Visit: HF EXACERBATION, EFFUSION Diagnosis Discharge Diagnosis (1) Acute CHF: Status: Acute Code(s): I50.9 - Heart failure, unspecified Qualifiers: Heart failure type: systolic Qualified Code(s): I50.21 - Acute systolic (congestive) heart failure Medications at Discharge Home Medications albuterol sulfate 2.5 mg/3 mL (0.083 %) solution for nebulization 2.5 mg continuous nebulization Q8H PRN shortness of breath or wheezing 03/10/23 alprazolam 0.5 mg tablet (Xanax) 0.5 mg PO BID PRN anxiety 03/10/23 cholecalciferol (vitamin D3) 1,250 mcg (50,000 unit) capsule 1,250 mcg PO QWEEK SUPPLEMENT 03/10/23 fluticasone furoate 100 mcg-vilanterol 25 mcg/dose inhalation powder (Breo Ellipta) 1 inh inhalation DAILY SHORTNESS OF BREATH/WHEEZING 03/10/23 montelukast 5 mg chewable tablet 5 mg PO QPM ASTHMA 03/10/23 sertraline 50 mg tablet 50 mg PO DAILY DEPRESSION 03/10/23 Hospital Course Operations None Procedures 2-D Echocardiogram, EKG, Thoracentesis and - (cxr/ct chest) Summary of Care Provided Minutes Spent on Discharge: 40 Hospital Course: Mrs. Siu is a 52-year-old white female who presented to the emergency department at [facility] on 03/10/2023 with worsening shortness of breath and increasing swelling to her lower extremities that had been slowly progressing over the last 4 weeks. She complained of orthopnea and paroxysmal dyspnea as well. She was seen as an outpatient and placed on a 2-week prednisone taper with no marked improvement. She had been monitoring her pulse oximetry as an outpatient when she was short of breath and the day prior to presentation she reportedly had a 70% pulse ox on room air. Outpatient chest x-ray was performed and was concerning for overload. She does not wear oxygen at baseline. She was sent for an outpatient repeat chest x-ray on the day of presentation but when she got there her vitals were assessed and she was found to be dyspneic on arrival and was found to be hypoxic with oxygen saturations at 65% on room air so they referred her to the emergency department for further workup. Vital signs on presentation showed a temperature of 98.9, heart rate 136, blood pressure 135/103, respiratory rate was 28 and oxygen saturation was documented at 96% on room air while at rest. I question whether or not the outpatient oxygen saturation of 65% was after exertion or during recovery. Her CBC was overall unremarkable showing a normal white count with a left shift at 80% neutrophilia. She did have a D-dimer elevation at 1.80. Her chemistry panel showed mild hyponatremia with a potassium of 3.0. A serum creatinine of 1.51 with an unclear baseline. Normal magnesium level. Her BNP was 628. Cardiac enzymes have been cycled and are unremarkable. A CTA of the chest showed a right lower lobe segmental and subsegmental pulmonary emboli, right-sided pleural effusion, small to medium left pleural effusion, small to medium pericardial effusion with mild cardiomegaly, small to medium volume ascites, and body wall edema and anasarca. A right-sided thoracentesis was performed on 03/10/2023 at which time 1820 cc of clear fluid was drained. By Light's criteria pleural fluid is exudative however she was given Lasix prior to this being obtained so this could cause her pleural fluid to appear exudative. Pleural fluid cultures are pending at the time of discharge. An echocardiogram was obtained and shows an EF of 15 to 20% with severe global left ventricular dysfunction, severe decreased right ventricular systolic function with a dilated right ventricle, severe eccentric mitral valve insufficiency, small pericardial effusion and moderate left pleural effusion. This was a new finding and she has no history of cardiomyopathy. She was admitted to the telemetry floor and placed on IV Lasix, fluid restriction, strict I's and O's, sodium restriction, and neck cardiology consultation to assist with care and rule out ischemic cardiomyopathy. With regards to her pulmonary emboli she was placed on a heparin drip. She diuresed well and clinically was feeling better. She was started on a beta-bhumika, Jardiance, and an aspirin. Her lipid profile was performed and she had a total cholesterol 120/LDL 42/HDL 61/triglycerides of 84. Statin was discontinued. Autoimmune workup including rheumatoid factor, SHASHANK and ANCA's were ordered. Rheumatoid factor was unremarkable and SHASHANK panel and ANCA's were pending at the time of discharge. Her renal function remained elevated but relatively stable throughout her hospitalization. Cardiology consultation was pending at the time of discharge. She did have electrolyte abnormalities with hypokalemia which was replaced with oral potassium on an ongoing basis. Magnesium level was 1.7 however I did give her IV magnesium to keep her magnesium level greater than 2 given her severely depressed EF. Clinically, with regards to her volume status she seems to be improving and her shortness of breath was improving. She still suffered from significant fatigue and decreased exercise tolerance. On 03/12/2023 cardiology reviewed her rhythm strip and at the time of his evaluation she was found to have a heart rate of 127 that was felt due to possible atrial tachycardia/atrial flutter with 2-1 block and a short UT interval with an excited pathway concerning for WPW and a prolonged QTc. Transfer to tertiary center for EP evaluation was recommended by cardiology. The patient was accepted for transfer to [facility] cardiac stepdown unit. Accepting physician was Dr. Aburto. Discharge diagnoses: Exertional hypoxia Large right pleural effusion Acute decompensated right and left heart failure with a EF of 15 to 20% Acute pulmonary embolus Hypokalemia CHIDI-suspect cardiorenal syndrome Hyperbilirubinemia-suspect related to passive congestion due to heart failure History of asthma Atrial tachycardia-concern for WPW History of Hodgkin's lymphoma Depression Anxiety Physical Exam Const alert, oriented x3, no apparent distress, average body habitus and well nourished; Negative for healthy appearing Constitutional Narrative: Middle-aged, ill-appearing, white female, sitting up in bed, texting on her phone and watching television, conversational dyspnea is resolved at rest, breathing appears comfortable and I put her on room air, nontoxic r toxic General Appearance: cooperative, comfortable, well kempt and well developed Orientation / Consciousness: awake, oriented to person, oriented to place and oriented to time Exam Limitations: no limitations HEENT normocephalic, head/scalp atraumatic, hearing grossly normal bilaterally and moist oral mucous membranes HEENT Narrative: Dentition is good, Mallampati is 2, no thrush Eyes PERRL and conjunctivae normal Eyes Narrative: No scleral icterus Neck no lymphadenopathy, supple and no JVD Neck Narrative: trachea midline, no thyroid enlargement noted Resp normal respiratory effort, no retractions, no use of accessory muscles and No clear to auscultation bilaterally Resp Narrative: No significant tachypnea or conversational dyspnea today, slight crackles in right base with crackles in left base resolved and otherwise clear Auscultation: crackles; Negative for rhonchi or wheezes Cardio regular rhythm, S1 normal heart sound, S2 normal heart sound, no murmurs, no rub, no gallops and no clicks Cardio Narrative: Mild tachycardia GI normal to inspection, nondistended, normoactive bowel sounds, soft to palpation and non-tender GI Narrative: Possible mild distention, no fluid wave noticed Extremity no clubbing, cyanosis or edema Extremity Narrative: Pedal pulses are 2+, pedal edema has resolved Skin no rashes or lesions noted, no wounds, skin turgor normal, no jaundice, no petechiae and no mottling Skin Narrative: Skin is pale Neuro oriented x3, CN's II-XII intact bilaterally, moves all extremities and no focal motor deficits Neuro Narrative: Bed mobility is independent Speech: speech normal Psych affect normal Psych Narrative: Contact is good, patient is very pleasant, interacts appropriately Weight / BMI Weight Weight: 69.3 kg Body Mass Index (BMI) 23.9 ABG / Lab / Microbiology Data 03/12/23 06:04 03/12/23 10:28 Laboratory: Laboratory Results - last 24 hr 03/11/23 08:43: ESR 5, C-React Prot Ext Range 8.05 H, Rheumatoid Factor < 10.0 03/11/23 14:31: APTT 72.6 H 03/11/23 16:15: Sodium 136, Potassium 3.3 L, Chloride 101, Carbon Dioxide 27.0, Anion Gap 8, BUN 22 H, Creatinine 1.49 H, Estim Creat Clear Calc 42.46, Est GFR (MDRD) Af Amer 47 L, Est GFR (MDRD) Non-Af 39 L, BUN/Creatinine Ratio 14.8, Glucose 111 H, Calcium 8.8 03/11/23 20:27: APTT 78.4 H, Sodium 137, Potassium 3.7, Chloride 102, Carbon Dioxide 28.0, Anion Gap 7, BUN 22 H, Creatinine 1.64 H, Estim Creat Clear Calc 38.58, Est GFR (MDRD) Af Amer 42 L, Est GFR (MDRD) Non-Af 35 L, BUN/Creatinine Ratio 13.4, Glucose 121 H, Calcium 8.8 03/12/23 06:04: WBC 6.5, RBC 4.34, Hgb 10.9 L, Hct 36.9 L, MCV 85.0, MCH 25.1 L, MCHC 29.5 L, RDW Std Deviation 55.4 H, RDW Coeff of Endy 19.0 H, Plt Count 225, MPV 9.7, Immature Gran % (Auto) 0.300, Neut % (Auto) 74.1 H, Lymph % (Auto) 12.5 L, [place] % (Auto) 11.9 H, Eos % (Auto) 0.9, Baso % (Auto) 0.3, Absolute Neuts (auto) 4.8, Absolute Lymphs (auto) 0.81 L, Nucleated RBC % 0, APTT 111.5 H*, Sodium 138, Potassium 3.2 L, Chloride 103, Carbon Dioxide 29.0, Anion Gap 6, BUN 23 H, Creatinine 1.50 H, Estim Creat Clear Calc 42.18, Est GFR (MDRD) Af Amer 47 L, Est GFR (MDRD) Non-Af 39 L, BUN/Creatinine Ratio 15.3, Glucose 112 H, Calcium 8.6, Phosphorus 3.6, Magnesium 1.7, Total Bilirubin 1.20 H, AST 20, ALT 23, Alkaline Phosphatase 119 H, Total Protein 5.9 L, Albumin 2.8 L, Globulin 3.1, Albumin/Globulin Ratio 0.9, TSH 5.96 H, Free T4 0.92 03/12/23 10:28: Sodium 139, Potassium 3.3 L, Chloride 102, Carbon Dioxide 30.0, Anion Gap 7, BUN 24 H, Creatinine 1.68 H, Estim Creat Clear Calc 37.66, Est GFR (MDRD) Af Amer 41 L, Est GFR (MDRD) Non-Af 34 L, BUN/Creatinine Ratio 14.3, Glucose 166 H, Calcium 9.0 Microbiology: Microbiology 03/11/23 15:40 Mucosa - Nose Respiratory Panel (PCR) - Final 03/11/23 15:55 Nasal Secretion SARS-CoV-2 Antigen (Rapid) - Final Radiography Diagnostic Testing: Radiology Impression Echocardiogram 03/10/23 19:40 Interpretation Summary The estimated ejection fraction is 15-20% %. Severe global left ventricular systolic dysfunction. There is severe global hypokinesis of the left ventricle. Severely decreased right ventricular systolic function Mildly dilated right ventricle. Unable to assess diastolic dysfunction. Moderately severe (3+) eccentric mitral valve insufficiency. Small pericardial effusion. Moderate size left pleural effusion. Ordering Physician: Yadira Wiggins Referring Physician: Dereck Mejia Performed By: Jillian Zaragoza RDCS, RVT D/C Instructions Discharge Diet: Low fat / Low cholesterol, 8 Cup Fluid Restriction and 2000 mg Sodium Diet Meaningful Use Info Meaningful Use Diagnoses (Choose all that apply): CHF CHF MATTHEW/ARB ordered at discharge?: No Reason MATTHEW/ARB not ordered?: Worsening renal disease Documented LVEF (%): 15 Discharge Plan Admission Admit Date/Time: 03/10/23 17:43 Primary Reason for Your Visit: Shortness of breath Attending Provider: Karla Isbell Primary Care Provider: Dereck Mejia Consulting Providers: Yue Kumar; Yadira Wiggins; Jessica Arevalo Discharge Orders/Prescriptions Prescriptions: No Action albuterol sulfate 2.5 mg /3 mL (0.083 %) solution for nebulization 2.5 mg continuous nebulization Q8H PRN (Reason: shortness of breath or wheezing) cholecalciferol (vitamin D3) 1,250 mcg (50,000 unit) capsule 1,250 mcg PO QWEEK fluticasone furoate-vilanterol [Breo Ellipta] 100-25 mcg/dose blister with device 1 inh INHALATION DAILY montelukast 5 mg tablet,chewable 5 mg PO QPM sertraline 50 mg tablet 50 mg PO DAILY alprazolam [Xanax] 0.5 mg tablet 0.5 mg PO BID PRN (Reason: anxiety) Referrals / Follow Up: Dereck Mejia DO [Primary Care Provider] - Jillian Carranza NP-C [Non-Staff] - Disposition Disposition (needs filled in before D/C Order can be placed): Acute Care Hospital Charges/Coding Visit Charges Inpatient E&M: 38055 Disch Hosp >30min
[2023-03-12 15:15] LABS: Partial Thromboplast Time 43.6 Seconds (24.1-36.2)
[2023-03-12] MEDS: Heparin Injection (Vial) 5,000 UNIT/ML VIAL IV (16:20)
--- NOTE | 2023-03-12 18:15 | NURSING ---
Pt called and gave report to JOHN Londono at [facility].
[2023-03-12] MEDS: ALPRAZolam 0.5 MG Tablet PO (21:42)
[2023-03-14 13:50] LABS: Pathologist Comment/Body Fluid Reviewed
[2023-03-15 11:08] LABS: Anti-Centromere B Ab <0.2 AI (0.0-0.9); Anti-Chromatin <0.2 AI (0.0-0.9); Anti-Jo <0.2 AI (0.0-0.9); Anti-Scleroderma-70 AB <0.2 AI (0.0-0.9); Anti-dsDNA Ab <1 IU/mL (0-9); RNP Ab <0.2 AI (0.0-0.9); SJOGREN'S Anti-SS-A test < 0.2 AI (0.0-0.9); SJOGREN'S Anti-SS-B test 0.5 AI (0.0-0.9); Smith Ab <0.2 AI (0.0-0.9)
[2023-03-16 14:09] LABS: Cytoplasmic Ab (C-ANCA) 1:20 titer (Neg:<1:20); Perinuclear Ab (P-ANCA) <1:20 titer (Neg:<1:20)
[2023-03-16 15:08] LABS: Amylase Body Fluid 45 U/L (.); pH, Body Fluid 11254 7.4 (Not Estab.)
== END 2023-03-12 22:00 | disposition short-term general hospital (02) | DRG 291 ==
LOC: ED 16:25 → PCU 18:09
PROVIDERS: Admitting Provider Family Medicine; Emergency Provider Emergency Medicine; PCP Family Medicine; Referring Provider Emergency Medicine; Visit Provider Internal Medicine
DX: I13.0 Hypertensive heart and chronic kidney disease with heart failure and stage 1 through stage 4 chronic kidney disease, or unspecified chronic kidney disease (principal); J96.01 Acute respiratory failure with hypoxia; I26.94 Multiple subsegmental thrombotic pulmonary emboli without acute cor pulmonale; I50.21 Acute systolic (congestive) heart failure; I31.39 Other pericardial effusion (noninflammatory); R18.8 Other ascites; N17.9 Acute kidney failure, unspecified; I50.1 Left ventricular failure, unspecified; I48.92 Unspecified atrial flutter; E87.1 Hypo-osmolality and hyponatremia; J91.8 Pleural effusion in other conditions classified elsewhere; I47.19 Other supraventricular tachycardia; N18.30 Chronic kidney disease, stage 3 unspecified; I11.0 Hypertensive heart disease with heart failure; I42.8 Other cardiomyopathies; I50.82 Biventricular heart failure; J45.909 Unspecified asthma, uncomplicated; F32.A Depression, unspecified; I34.0 Nonrheumatic mitral (valve) insufficiency; E87.6 Hypokalemia; E80.6 Other disorders of bilirubin metabolism; F41.9 Anxiety disorder, unspecified; E07.81 Sick-euthyroid syndrome; U09.9 Post COVID-19 condition, unspecified; R31.9 Hematuria, unspecified; Z79.84 Long term (current) use of oral hypoglycemic drugs; Z79.51 Long term (current) use of inhaled steroids; Z79.899 Other long term (current) drug therapy; Z85.71 Personal history of Hodgkin lymphoma; Z87.891 Personal history of nicotine dependence
CPT/HCPCS: 32555; 36415; 71045; 71046; 71275; 74177; 80048; 80053; 80061; 81001; 82150; 82945; 83615; 83735; 83880; 83986; 84100; 84145; 84156; 84157; 84439; 84443; 84484; 85025; 85379; 85610; 85652; 85730; 86140; 86225; 86235; 86256; 86431; 87070; 87075; 87205; 87633; 87811; 88108; 88305; 88313; 88341; 88342; 89050; 93005; 93306; 94640; 94668; 97161; 97165; 97530; 97802; 99252; 99285; J7030; J7040; Q9957; Q9967; A4216; C8929; G0463; J1940

== ENCOUNTER → 2023-04-05 | Outpatient (CLI) | payer OTHER, SELFPAY ==
--- NOTE | 2023-04-05 15:12 | RAD_ITS ---
STUDY: X-RAY CHEST REASON FOR EXAM: Female, 52 years old. R PLEURAL EFFUSION TECHNIQUE: PA and lateral views of the chest. COMPARISON: Comparison is made with prior study dated March 12, 2023. FINDINGS: Mild residual pleural parenchymal changes at the right lung base although there has been a moderate degree of improvement as compared to prior study. The left lung is clear. Normal size heart. Normal mediastinum and elin. Normal visualized pulmonary arteries. There is atherosclerotic calcification of the aortic arch with tortuosity. Normal visualized thoracic spine. Normal visualized ribs, clavicles, and shoulders. There is no demonstrated abnormality of the visualized soft tissue structures of the upper abdomen. RAD/Chest PA and Lateral IMPRESSION: Mild residual pleural parenchymal changes at the right lung base although there has been a moderate degree of improvement as compared to prior study. Electronically Signed: Avinash Pizano MD at 15:41 EST ,
[2023-04-05 16:48] LABS: Absolute Lymphocyte Count 0.49 X10^3/uL (0.83-4.51); Absolute Neutrophil Count 3.7 X10^3/uL (2.0-7.7); Basophil# 0.04 X10^3/uL; Basophil% 0.8 % (0-1); Eosinophil# 0.16 X10^3/uL; Eosinophils% 3.3 % (0-5); Hematocrit 44.1 % (37-47); Hemoglobin 13.2 g/dL (12.0-15.0); Lymphocyte # 0.49 X10^3/ul (0.83-4.51); Lymphocyte % 10.1 % (19-41); Mean Corp Hgb Conc 29.9 g/dL (32-36); Mean Corpuscular Hgb 26.7 pg (27.0-32.0); Mean Corpuscular Volume 89.1 fL (81-99); Monocyte# 0.46 X10^3/uL; Monocyte% 9.5 % (0-10); NRBC Flagged by Analyzer 0 % (0-5); Neutrophil # 3.67 X10^3/uL (2.7-7.7); Neutrophil % 76.1 % (47-70); POSITIVE DIFFERENTIAL YES; POSITIVE MORPHOLOGY YES; Platelet Count 300 K/mm3 (150-450); RBC Distribution Width CV 21.8 % (11.6-14.6); RBC Distribution Width SD 69.6 fl (35.1-43.9); Red Blood Count 4.95 M/mm3 (4.2-5.4); White Blood Count 4.8 K/mm3 (4.4-11.0)
[2023-04-05 16:55] LABS: Differential Indicated SCAN CRITERIA MET
[2023-04-05 16:58] LABS: BNP,B-Type NATRIURETIC PEPTIDE 216.4 pg/mL (0-100)
[2023-04-05 17:09] LABS: ALB/GLOB Ratio 0.7 RATIO (0.9-2.4); AST(SGOT) 38 U/L (15-37); Alanine Aminotransfer ALT/SGPT 28 U/L (13-56); Albumin, Serum 3.5 g/dL (3.2-5.0); Alkaline Phosphatase 109 U/L (45-117); Anion Gap 8 (5-15); BUN 20 mg/dL (7-18); BUN/Creat Ratio 11.3 RATIO (10-20); Calcium,Total 10.3 mg/dL (8.5-10.1); Chloride 97 mmol/L (98-107); Creatinine, Serum 1.77 mg/dL (0.55-1.02); EST Glomerular Filtration Rate 32 mL/min (>60); Est Glom Filt Rate - Afr Amer 39 mL/min (>60); Globulin 4.9 g/dL (2.2-4.2); Glucose 102 mg/dL (74-106); Potassium 3.7 mmol/L (3.5-5.1); Protein, Total 8.4 g/dL (6.4-8.2); Sodium Level 137 mmol/L (136-145); Thyroid Stim Hormone (TSH) 8.34 uIU/mL (0.358-3.74)
[2023-04-05 17:23] LABS: Differential Comment SCANNED
== END | disposition home or self-care (01) ==
LOC: RAD 15:06
PROVIDERS: Nurse Practitioner Family; PCP Family Medicine; Referring Provider Family Medicine; Visit Provider Family Medicine
DX: J90 Pleural effusion, not elsewhere classified (principal); I50.9 Heart failure, unspecified; D64.9 Anemia, unspecified; N17.9 Acute kidney failure, unspecified
CPT/HCPCS: 71046; 80053; 83880; 84443; 85025

== ENCOUNTER 2023-04-13 15:01 | Emergency (ER) | payer OTHER, SELFPAY ==
[2023-04-13 15:04] VITALS: BP 130/76; PULSE 109; RESP 18; TEMP 37; O2SAT 98; BMI 19.8
[2023-04-13 15:19] VITALS: BP 133/76; PULSE 99; RESP 16; O2SAT 100
[2023-04-13 15:23] VITALS: O2SAT 99
--- NOTE | 2023-04-13 15:32 | ED.VIS.CHEST ---
HPI History of Present Illness Chief Complaint: Chest Pain Informant: patient Onset/Context/Timing Onset: Today Activity at onset: activity on onset (awoke w/ sx) Timing: Continuous Quality: Positive for Pain Location: Substernal (w/o radiation) Current Severity: Moderate Maximum Severity: Moderate Worsened By: Movement of Torso (bending over, as well as lying down supine) and Breathing Relieved By: Nothing Associated Symptoms: Negative for Nausea, Vomiting, Diaphoresis, Dyspnea, Cough, Fever, Lightheadedness, Acid Reflux or Palpitations Narrative Narrative: Patient presents around 1500 with chest discomfort and has been present since she woke up. She states it is an unusual pain, retrosternal feels like it is on the inside like it is a bone or something. She said it feels different than reflux which she does not experience much since she has been on daily GERD medication. She had an appointment with pulmonology today, she talk to them about it and they seem to think that she did not have an acute lung issue. She has a history of pulmonary embolus for which she is still anticoagulated on apixaban. She denies any fevers, chills, nausea, vomiting, or dyspnea today. No coughing. No leg pain or swelling. Compliant with her anticoagulant. She has had esophageal dilatations in the past. [facility] Medical History CHIDI (acute kidney injury) Alcoholic cardiomyopathy Anxiety Ascites Asthma Atrial fibrillation Atrial flutter Cardiogenic shock COVID-19 Dysphagia Eosinophilic esophagitis Former tobacco use GERD (gastroesophageal reflux disease) HFrEF (heart failure with reduced ejection fraction) Hx of Hodgkins lymphoma (~1987) Iron deficiency anemia Migraines Pleural effusion on right Psoriasis Vitamin D deficiency Home Medications albuterol sulfate 2.5 mg/3 mL (0.083 %) solution for nebulization 2.5 mg continuous nebulization Q8H PRN shortness of breath or wheezing 03/10/23 [History Last Taken Unknown] cholecalciferol (vitamin D3) 1,250 mcg (50,000 unit) capsule 1,250 mcg PO QWEEK SUPPLEMENT 03/10/23 [History Last Taken Unknown] sertraline 50 mg tablet 50 mg PO DAILY DEPRESSION 03/10/23 [History Last Taken Unknown] albuterol sulfate 90 mcg/actuation aerosol inhaler 2 puff inhalation Q4H PRN wheezing 04/04/23 [History Last Taken Unknown] amiodarone 200 mg tablet 200 mg PO DAILY 04/04/23 [History Last Taken Unknown] apixaban 5 mg tablet (Eliquis) 5 mg PO BID 04/04/23 [History Last Taken Unknown] empagliflozin 10 mg tablet (Jardiance) 10 mg PO DAILY 04/04/23 [History Last Taken Unknown] furosemide 40 mg tablet 40 mg PO BID 04/04/23 [History Last Taken Unknown] rabeprazole 20 mg tablet,delayed release 10 mg PO Q24H 04/04/23 [History Last Taken Unknown] spironolactone 25 mg tablet 25 mg PO DAILY 04/04/23 [History Last Taken Unknown] trazodone 50 mg tablet 50 mg PO QHS 04/04/23 [History Last Taken Unknown] hyoscyamine sulfate 0.125 mg sublingual tablet 0.125 mg PO Q6H PRN dyspepsia/discomfort #16 tabs 04/13/23 [Rx Last Taken Unknown] Allergy/AdvReac Type Severity Reaction Status Date / Time diphenhydramine Allergy Unknown Unknown Verified 04/13/23 15:04 [From Benadryl] lobster Allergy Unknown Unknown Verified 04/13/23 15:04 nitrofurantoin Allergy Unknown Unknown Verified 04/13/23 15:04 [From Macrobid] sumatriptan [From Imitrex] Allergy Unknown Unknown Verified 04/13/23 15:04 walnut Allergy Unknown Mouth Verified 04/13/23 15:04 tingles zolmitriptan [From Zomig] Allergy Unknown Unknown Verified 04/13/23 15:04 Family History Mother Heart disease Hypertension Myocardial infarction Dementia Father Heart disease Hypertension CVA (cerebral vascular accident) Alcoholism Myocardial infarction Surgical History History of cardioversion (03/15/23) History of esophageal dilatation History of foot surgery History of lymph node biopsy History of right cataract extraction History of thoracentesis (03/15/23) History of vascular surgery Hx of section Social History household members: spouse Smoking Status: Former smoker alcohol intake: former substance use type: does not use ROS ROS ED Constitutional Constitutional ED: Denies chills or fever(s) Eyes Eyes: Denies change in vision or diplopia ENT ENT ED: Denies rhinorrhea or sore throat Cardiovascular Cardiovascular: Reports chest pain; Denies leg edema, palpitations or radiating jaw, neck or arm pain Respiratory/Chest Respiratory/Chest: Denies cough or dyspnea Gastrointestinal Gastrointestinal: Denies abdominal pain, diarrhea, nausea or vomiting Genitourinary Genitourinary ED: Denies dysuria or hematuria Musculoskeletal Musculoskeletal: Denies back pain or neck pain Integumentary Denies abscess or rash Neurologic Neurologic: Denies headache(s), paresthesias or weakness Psychiatric Psychiatric: Denies anxiety or suicidal thoughts EXAM Physical Exam Const Vital Signs: 04/13/23 15:04 04/13/23 15:19 04/13/23 15:19 Temperature 98.6 F Temperature Source Temporal Pulse Rate 109 H 99 Respiratory Rate 18 16 Respiratory Effort Normal Non-Labored Respiratory Depth Respiratory Pattern Blood Pressure 130/76 H 133/76 H Blood Pressure Mean 94 95 Pulse Ox 98 100 Oxygen Delivery Method Room Air Room Air 04/13/23 15:23 04/13/23 17:22 Temperature Temperature Source Pulse Rate 91 Respiratory Rate 14 Respiratory Effort Normal Respiratory Depth Normal Respiratory Pattern Normal Blood Pressure 137/86 H Blood Pressure Mean 103 Pulse Ox 96 Oxygen Delivery Method Room Air Room Air Positive well nourished and well developed General Appearance ED: well developed and NAD HEENT Reports moist mucous membranes normocephalic and atraumatic Eyes PERRL and EOMs intact bilaterally Neck full ROM and supple Resp normal respiratory effort and clear to auscultation bilaterally Cardio regular rate, regular rhythm and no murmurs GI non-tender and non-distended Auscultation: normoactive bowel sounds Palpation: soft Back/Spine no CVA tenderness General Back: other FROM Extremity normal to inspection General Extremety ED: Negative for edema, pulses abnormal or tenderness General Extremity: Negative for edema or pulses abnormal Neuro oriented x3, CN's II-XII intact bilaterally and no sensory deficits noted Sensorium / Orientation: awake and alert Motor Exam: strength 5/5 throughout Skin no rashes or lesions noted and no wounds Heart Score History: Slightly/Non-Suspicious Age: >45 - <65 years Risk Factors: 1 or 2 Risk Factors (Former smoker) Score: 2 MDM MDM MDM Narrative Medical decision making narrative: Cardiac workup performed and is normal. This includes EKG and troponin, no evidence of injury or pericarditis. I do not think she needs to be worked up for pulmonary embolus and she is already on anticoagulation. This was explained to her and she understands. She has some chronic renal insufficiency this is a little worse but not measurably so that requires admission. In the meantime considering her history of esophageal issues, she was given medications for both reflux and smooth muscle spasm. Afterwards, she states the pain is gone for the first time today. With all of this and her low heart score and comfortable with discharging her home. Do not think she needs a second troponin measurement today since she has had constant discomfort for more than 8 hours with a negative troponin. Will prescribe her some hyoscyamine to use as needed until she follows up. She is comfortable with that plan. Lab Data Attestation: I reviewed the patient's lab results. Labs: Laboratory Results - last 24 hr 04/13/23 15:40 WBC 7.2 RBC 4.77 Hgb 13.1 Hct 42.7 MCV 89.5 MCH 27.5 MCHC 30.7 L RDW Std Deviation 69.4 H RDW Coeff of Endy 21.4 H Plt Count 206 MPV 11.3 Immature Gran % (Auto) 0.700 Neut % (Auto) 82.2 H Lymph % (Auto) 5.4 L [place] % (Auto) 10.6 H Eos % (Auto) 0.8 Baso % (Auto) 0.3 Absolute Neuts (auto) 5.9 Absolute Lymphs (auto) 0.39 L Nucleated RBC % 0 Differential Comment Sodium 133 L Potassium 3.4 L Chloride 96 L Carbon Dioxide 30.0 Anion Gap 7 BUN 22 H Creatinine 1.92 H Estim Creat Clear Calc 30.65 Est GFR (MDRD) Af Amer 35 L Est GFR (MDRD) Non-Af 29 L BUN/Creatinine Ratio 11.5 Glucose 134 H Calcium 10.0 Troponin I High Sens 10 Radiography Chest X-Ray - ED: 2 View, Read by ED Physician, Normal, No Acute Disease and No Infiltrates Diagnostic Testing: Clinical Impression(s) from Imaging Studies Chest X-Ray 04/13/23 15:50 IMPRESSION: No change from the reference exam. There is a stable small right-sided pleural effusion. Electronically Signed: Jarod Davenport MD at 16:11 EST , Rhythm Strip Rhythm Strip: Sinus Rhythm Rate: 90 Ectopy: None EKG Initial EKG: Attestation: I personally reviewed and interpreted this EKG as follows: Interpretation: Sinus Rhythm and No Acute Injury Pattern Prior EKG tracings: available for review Prior: Unchanged Discharge Plan Triage Chief Complaint: Chest Pain Other Complaint: Chest Other ED Provider: Hilario Al Dx/Rx/DC Orders Clinical Impression: Chest pain, unspecified Instructions: ED Chest Pain, Noncardiac Prescriptions: New hyoscyamine sulfate 0.125 mg tablet, sublingual 0.125 mg PO Q6H PRN (Reason: dyspepsia/discomfort) Qty: 16 0RF No Action albuterol sulfate 90 mcg/actuation HFA aerosol inhaler 2 puff inhalation Q4H PRN (Reason: wheezing) amiodarone 200 mg tablet 200 mg PO DAILY furosemide 40 mg tablet 40 mg PO BID Jardiance 10 mg tablet 10 mg PO DAILY spironolactone 25 mg tablet 25 mg PO DAILY trazodone 50 mg tablet 50 mg PO QHS rabeprazole 20 mg tablet,delayed release (DR/EC) 10 mg PO Q24H Patient Comments: 1/2 tab by mouth daily Eliquis 5 mg tablet 5 mg PO BID albuterol sulfate 2.5 mg /3 mL (0.083 %) solution for nebulization 2.5 mg continuous nebulization Q8H PRN (Reason: shortness of breath or wheezing) cholecalciferol (vitamin D3) 1,250 mcg (50,000 unit) capsule 1,250 mcg PO QWEEK sertraline 50 mg tablet 50 mg PO DAILY Primary Care Provider: Dereck Mejia Referrals: Dereck Mejia DO [Primary Care Provider] - 3-5 Days if not improving Disposition Disposition: Home, Self Care Discharge Date/Time: 04/13/23 17:26
[2023-04-13 15:47] LABS: Absolute Lymphocyte Count 0.39 X10^3/uL (0.83-4.51); Absolute Neutrophil Count 5.9 X10^3/uL (2.0-7.7); Basophil# 0.02 X10^3/uL; Basophil% 0.3 % (0-1); Eosinophil# 0.06 X10^3/uL; Eosinophils% 0.8 % (0-5); Hematocrit 42.7 % (37-47); Hemoglobin 13.1 g/dL (12.0-15.0); Lymphocyte # 0.39 X10^3/ul (0.83-4.51); Lymphocyte % 5.4 % (19-41); Mean Corp Hgb Conc 30.7 g/dL (32-36); Mean Corpuscular Hgb 27.5 pg (27.0-32.0); Mean Corpuscular Volume 89.5 fL (81-99); Mean Platelet Vol. 11.3 fl (6.2-12.0); Monocyte# 0.76 X10^3/uL; Monocyte% 10.6 % (0-10); NRBC Flagged by Analyzer 0 % (0-5); Neutrophil % 82.2 % (47-70); POSITIVE DIFFERENTIAL YES; POSITIVE MORPHOLOGY YES; Platelet Count 206 K/mm3 (150-450); RBC Distribution Width CV 21.4 % (11.6-14.6); RBC Distribution Width SD 69.4 fl (35.1-43.9); Red Blood Count 4.77 M/mm3 (4.2-5.4); White Blood Count 7.2 K/mm3 (4.4-11.0)
[2023-04-13 15:50] LABS: Differential Indicated SCAN CRITERIA MET
--- NOTE | 2023-04-13 15:50 | RAD_ITS ---
EXAM: XR CHEST, 2 VIEWS CLINICAL INDICATION: chest pain TECHNIQUE: Frontal and lateral views of the chest. COMPARISON: 04/05/2023 FINDINGS: LUNGS AND PLEURAL SPACES: There is a stable small right-sided pleural effusion. No pneumothorax. HEART: Unremarkable. Cardiac silhouette not enlarged. MEDIASTINUM: Central airways and mediastinal contour are unremarkable. BONES/JOINTS: Unremarkable. No acute fracture. SOFT TISSUES: Unremarkable. RAD/Chest PA and Lateral IMPRESSION: No change from the reference exam. There is a stable small right-sided pleural effusion. Electronically Signed: Jarod Davenport MD at 16:11 EST ,
[2023-04-13] MEDS: Aspirin 81 MG TAB.CHEW 324 MG PO (15:57)
[2023-04-13] MEDS: Hyoscyamine Sulfate 0.125 MG Tablet 0.25 MG SL (15:58)
[2023-04-13] MEDS: Mag Hydrox/Al Hydrox/Simeth 30 ML UDC PO (15:58)
[2023-04-13 16:11] LABS: Anion Gap 7 (5-15); BUN 22 mg/dL (7-18); BUN/Creat Ratio 11.5 RATIO (10-20); Chloride 96 mmol/L (98-107); Creatinine, Serum 1.92 mg/dL (0.55-1.02); EST Glomerular Filtration Rate 29 mL/min (>60); Est Glom Filt Rate - Afr Amer 35 mL/min (>60); Estimated Creatinine Clearance 30.65 ml/min; Glucose 134 mg/dL (74-106); Potassium 3.4 mmol/L (3.5-5.1); Sodium Level 133 mmol/L (136-145); Troponin-I HS 10 pg/mL (3.0-54.0)
[2023-04-13 17:22] VITALS: BP 137/86; PULSE 91; RESP 14; O2SAT 96
== END 2023-04-13 17:26 | disposition home or self-care (01) ==
PROVIDERS: Emergency Provider Emergency Medicine; PCP Family Medicine; Visit Provider Emergency Medicine
DX: R07.9 Chest pain, unspecified (principal); I50.22 Chronic systolic (congestive) heart failure; I48.91 Unspecified atrial fibrillation; J45.909 Unspecified asthma, uncomplicated; Z79.01 Long term (current) use of anticoagulants; Z79.899 Other long term (current) drug therapy; Z87.891 Personal history of nicotine dependence
CPT/HCPCS: 71046; 80048; 84484; 85025; 93005; 99285

== ENCOUNTER → 2023-05-02 | Outpatient (CLI) | payer OTHER, SELFPAY ==
[2023-05-02 11:45] VITALS: PULSE 111; PULSE 115; PULSE 118; PULSE 122; PULSE 123; PULSE 124; PULSE 126; O2SAT 91; O2SAT 93; O2SAT 94; O2SAT 95; O2SAT 98; O2SAT 99
--- NOTE | 2023-05-04 09:34 | PCM.PSN.6M ---
PSN 6 Minute Walk Test 6 Minute Walk Test 6 Minute Walk Test: 6 Minute Walk Test PSN:6-Minute Walk Test Start: 05/02/23 11:55 Freq: Status: Active Protocol: [id number] Document 05/02/23 11:45 AEH (Rec: 05/02/23 11:59 AE Desktop) 6 Minute Walk Test Date Performed 05/02/23 Time Performed 11:45 Height 5 ft 7 in Weight: 126 lb Weight in Pounds 126.[address]: Dr Louis Assistive device used: None Pre-test Oxygen Delivery Method Room Air Pulse Ox 99 Pulse Rate (60-100) 111 H Dyspnea Dante Scale (0-10) 0 Exertion Dante Scale (6-20) 6 1st minute Oxygen Delivery Method Room Air Pulse Ox 91 Dyspnea Dante Scale (0-10) 106 2nd minute Oxygen Delivery Method Room Air Pulse Ox 95 Pulse Rate (60-100) 126 H 3rd minute Oxygen Delivery Method Room Air Pulse Ox 94 Pulse Rate (60-100) 122 H 4th minute Oxygen Delivery Method Room Air Pulse Ox 93 Pulse Rate (60-100) 118 H 5th minute Oxygen Delivery Method Room Air Pulse Ox 93 Pulse Rate (60-100) 124 H 6th minute Oxygen Delivery Method Room Air Pulse Ox 95 Pulse Rate (60-100) 123 H Dyspnea Dante Scale (0-10) 0 Exertion Dante Scale (6-20) 8 Post-test Oxygen Delivery Method Room Air Pulse Ox 98 Pulse Rate (60-100) 115 H Full Laps Walked 25 Partial Lap, Number of Tiles Walked 0 Total Distance Walked (ft) 1475 Interpretation Interpretation: The patient ambulated 1475 feet over the course of 6 minutes beginning on room air without assistive devices. Pretesting oxygen saturation was noted to be 99% on room air. With ambulation, the jerome oxygen saturation was 91%. This represents a significant exertional oxygen desaturation. Recommendations Recommendations: There is no indication for the use of supplemental oxygen at this time. However, close interval follow-up was recommended, given the degree of oxygen desaturation noted during this study.
== END | disposition home or self-care (01) ==
LOC: PSN 11:39
PROVIDERS: PCP Family Medicine; Referring Provider Internal Medicine Critical Care Medicine; Visit Provider Internal Medicine Critical Care Medicine
DX: I26.99 Other pulmonary embolism without acute cor pulmonale (principal); J45.909 Unspecified asthma, uncomplicated
CPT/HCPCS: 94618

== ENCOUNTER → 2023-05-03 | Outpatient (CLI) | payer OTHER, SELFPAY | END | disposition home or self-care (01) | LOC: PSN 12:58 | PROVIDERS: PCP Family Medicine; Referring Provider Internal Medicine Critical Care Medicine; Visit Provider Internal Medicine Critical Care Medicine | DX: I26.99 Other pulmonary embolism without acute cor pulmonale (principal); J45.909 Unspecified asthma, uncomplicated | CPT/HCPCS: 94060; 94726; 94729 ==

== ENCOUNTER → 2023-07-03 | Outpatient (CLI) | payer OTHER, SELFPAY ==
[2023-07-03 15:57] LABS: ALB/GLOB Ratio 0.8 RATIO (0.9-2.4); AST(SGOT) 20 U/L (15-37); Alanine Aminotransfer ALT/SGPT 20 U/L (13-56); Albumin, Serum 3.9 g/dL (3.2-5.0); Alkaline Phosphatase 115 U/L (45-117); Anion Gap 6 (5-15); BUN 18 mg/dL (7-18); BUN/Creat Ratio 12.4 RATIO (10-20); Calcium,Total 9.9 mg/dL (8.5-10.1); Chloride 100 mmol/L (98-107); Creatinine, Serum 1.45 mg/dL (0.55-1.02); EST Glomerular Filtration Rate 40 mL/min (>60); Est Glom Filt Rate - Afr Amer 48 mL/min (>60); Globulin 4.8 g/dL (2.2-4.2); Glucose 91 mg/dL (74-106); Potassium 3.5 mmol/L (3.5-5.1); Protein, Total 8.7 g/dL (6.4-8.2); Sodium Level 138 mmol/L (136-145); T4 Total, Thyroxin 9.4 ug/dL (4.8-13.9); Thyroid Stim Hormone (TSH) 6.44 uIU/mL (0.358-3.74)
== END | disposition home or self-care (01) ==
LOC: LAB 14:55
PROVIDERS: PCP Family Medicine; Referring Provider Internal Medicine Cardiovascular Disease; Visit Provider Internal Medicine Cardiovascular Disease
DX: I50.20 Unspecified systolic (congestive) heart failure (principal); I48.91 Unspecified atrial fibrillation; I26.99 Other pulmonary embolism without acute cor pulmonale
CPT/HCPCS: 36415; 80053; 84436; 84443

== ENCOUNTER 2023-10-29 02:15 | Emergency (ER) | payer OTHER, SELFPAY ==
[2023-10-29 02:16] VITALS: BP 109/71; PULSE 71; RESP 16; TEMP 36.6; O2SAT 96; BMI 23.4
--- NOTE | 2023-10-29 02:36 | EKG12_ITS ---
Test Reason : Blood Pressure : / mmHG Vent. Rate : 061 BPM Atrial Rate : 061 BPM P-R Int : 194 ms QRS Dur : 096 ms QT Int : 496 ms P-R-T Axes : 001 016 033 degrees QTc Int : 499 ms Normal sinus rhythm Prolonged QT Abnormal ECG Confirmed by PETAR AL, TANYA ([id number]), commercial production editor TREV NINA ([id number]) on 11/03/2023 6:18:31 AM Referred By: Confirmed By:ARMANI DAVEY MD
--- NOTE | 2023-10-29 02:37 | EDS_ITS ---
HPI History of Present Illness Chief Complaint: Mental Status Change Informant: patient and spouse/S.O. Narrative Narrative: 53-year-old female brought in because of an altered level of consciousness that is resolved at this time. Historians include the patient, the , and EMS personnel. [facility], [facility] They came home and she took her nighttime medications which include Xanax. About an hour after that she was feeling very lethargic, says at 1 point she was not responding and seemed to be breathing slowly/poorly. They checked her pulse ox, and it varied but went down into the mid 80s at 1 point and gradually came back up to the 90s. Systolic blood pressure was around the 100. Unclear if she was ever totally unconscious. Patient does not think so. Initially she states she felt like she was going into A-fib, which she commonly feels like whenever she lies down, but then indicates that she does not really know what it feels like to be in A-fib, she just remembers that when she was in it in the hospital a year or so ago, she felt very poorly and she felt poorly tonight. She denies having any chest pain, dyspnea, palpitations or rapid heartbeat. She and both agree that she is doing a lot better right now and feels back to normal. [facility] Medical History COVID-19 Iron deficiency anemia Atrial flutter Vitamin D deficiency Ascites Cardiogenic shock Alcoholic cardiomyopathy Eosinophilic esophagitis Dysphagia Psoriasis CHIDI (acute kidney injury) HFrEF (heart failure with reduced ejection fraction) Atrial fibrillation GERD (gastroesophageal reflux disease) Migraines Former tobacco use Pleural effusion on right Anxiety Hx of Hodgkins lymphoma (~1987) Asthma Home Medications ?Medication ?Instructions ?Recorded ?Last Taken ?Type albuterol sulfate 90 mcg/actuation 2 puff inhalation Q4H PRN wheezing 04/04/23 Unknown History aerosol inhaler empagliflozin 10 mg tablet 10 mg PO DAILY 04/04/23 Unknown History (Jardiance) rabeprazole 20 mg tablet,delayed 10 mg PO Q24H 04/04/23 Unknown History release spironolactone 25 mg tablet 25 mg PO DAILY 04/04/23 Unknown History alprazolam 1 mg tablet 1 mg PO QDAY PRN 05/31/23 Unknown History apixaban 5 mg tablet (Eliquis) 5 mg PO BID #360 tabs 05/31/23 Unknown Rx metoprolol tartrate 50 mg tablet 50 mg PO BID #180 tabs 07/03/23 Unknown Rx furosemide 40 mg tablet 40 mg PO DAILY 10/09/23 Unknown History Allergy/AdvReac Type Severity Reaction Status Date / Time diphenhydramine (From Allergy Unknown Unknown Verified 10/09/23 14:10 Benadryl) lobster Allergy Unknown Unknown Verified 10/09/23 14:10 nitrofurantoin (From Allergy Unknown Unknown Verified 10/09/23 14:10 Macrobid) sumatriptan (From Imitrex) Allergy Unknown Unknown Verified 10/09/23 14:10 walnut Allergy Unknown Mouth Verified 10/09/23 14:10 tingles zolmitriptan (From Zomig) Allergy Unknown Unknown Verified 10/09/23 14:10 Family History Mother Heart disease Hypertension Myocardial infarction Dementia Father Heart disease Hypertension CVA (cerebral vascular accident) Alcoholism Myocardial infarction Surgical History History of left cataract extraction History of foot surgery History of right cataract extraction History of esophageal dilatation History of thoracentesis (03/15/23) History of lymph node biopsy History of cardioversion (03/15/23) History of vascular surgery Hx of section Social History household members: spouse Smoking Status: Former smoker alcohol intake: former substance use type: does not use ROS ROS ED Constitutional Constitutional ED: Reports as per HPI and lethargy; Denies chills or fever(s) Eyes Eyes: Denies change in vision or diplopia ENT ENT ED: Denies rhinorrhea or sore throat Cardiovascular Cardiovascular: Denies chest pain or palpitations Respiratory/Chest Respiratory/Chest: Denies cough or dyspnea Gastrointestinal Gastrointestinal: Denies abdominal pain, diarrhea, nausea or vomiting Genitourinary Genitourinary ED: Denies dysuria or hematuria Musculoskeletal Musculoskeletal: Denies back pain or neck pain Integumentary Denies abscess or rash Neurologic Neurologic: Denies headache(s), paresthesias or weakness Psychiatric Psychiatric: Denies anxiety or suicidal thoughts EXAM Physical Exam Const Vital Signs: 10/29/23 02:16 Temperature 97.9 F Temperature Source Oral Pulse Rate 71 Respiratory Rate 16 Blood Pressure 109/71 Blood Pressure Mean 83 Pulse Ox 96 Oxygen Delivery Method Room Air Positive well nourished and well developed General Appearance ED: well developed and NAD HEENT Reports moist mucous membranes normocephalic and atraumatic Eyes PERRL and EOMs intact bilaterally Neck full ROM and supple Resp normal respiratory effort and clear to auscultation bilaterally Cardio regular rate, regular rhythm and peripheral pulses 2+ throughout Heart Sounds: murmur systolic I/ soft GI non-tender and non-distended Auscultation: normoactive bowel sounds Palpation: soft Back/Spine no CVA tenderness General Back: other FROM Extremity normal to inspection General Extremety ED: Negative for edema, pulses abnormal or tenderness General Extremity: Negative for edema or pulses abnormal Neuro oriented x3, CN's II-XII intact bilaterally and no sensory deficits noted Neuro Narrative: keenly alert, conversive, well-appearing Sensorium / Orientation: awake and alert Motor Exam: strength 5/5 throughout Skin no rashes or lesions noted and no wounds MDM MDM MDM Narrative Medical decision making narrative: This patient has a benign exam, he is keenly alert and oriented x 3, and has normal vital signs right now, breathing very well. My suspicion is that this clinical scenario prior to arrival occurred as a result of mixing alcohol and benzodiazepines. It is 2:30 AM during my evaluation, and therefore my recommendation although the patient wants to leave, is to be observed here on the monitor for at least an hour while she continues to metabolize both said substances above, and in the meantime obtained labs and an EKG. Patient was watched for an hour and remained keenly alert and well without any symptoms. Her vital signs remained normal. Her labs were reviewed. She is very mildly hypokalemic but often is, and I do not think she needs emergent replacement. Her alcohol is 242. I discussed that with her. Mixing alcohol with benzodiazepines can be dangerous and I am more confident now looking at her level multiple hours after she finished drinking still over 3 times the legal limit, definitely is consistent with being related to her transient lethargy in context of taking a relatively short acting benzodiazepine. She was counseled on this. In addition I think her hypoxemia at home was probably related to her lethargy and bradypnea/hypopnea. I think she has metabolized the Xanax at this time, and she is keenly alert and I feel she is safe to be discharged home to go to sleep, they are comfortable with that overall plan. Lab Data Attestation: I reviewed the patient's lab results. Labs: Laboratory Results - last 24 hr 10/29/23 02:29 WBC 5.0 RBC 4.16 L Hgb 14.1 Hct 42.2 MCV 101.4 H MCH 33.9 H MCHC 33.4 RDW Std Deviation 48.1 H RDW Coeff of Endy 13.0 Plt Count 194 MPV 10.4 Immature Gran % (Auto) 0.400 Neut % (Auto) 57.6 Lymph % (Auto) 22.6 [place] % (Auto) 11.1 H Eos % (Auto) 7.3 H Baso % (Auto) 1.0 Absolute Neuts (auto) 2.9 Absolute Lymphs (auto) 1.14 Nucleated RBC % 0 Sodium 137 Potassium 3.3 L Chloride 102 Carbon Dioxide 24.0 Anion Gap 11 BUN 25 H Creatinine 1.45 H Estim Creat Clear Calc 43.13 Est GFR (MDRD) Af Amer 48 L Est GFR (MDRD) Non-Af 40 L BUN/Creatinine Ratio 17.2 Glucose 108 H Calcium 8.9 Ethyl Alcohol 242.0 Rhythm Strip Rhythm Strip: Sinus Rhythm Rate: 70 Ectopy: None EKG Initial EKG: Attestation: I personally reviewed and interpreted this EKG as follows: Interpretation: Sinus Rhythm and No Acute Injury Pattern Comments: Normal EKG Discharge Plan Triage Chief Complaint: Mental Status Change ED Provider: Hilario Al Dx/Rx/DC Orders Clinical Impression: Transient alteration of awareness, Alcohol intoxication Instructions: Understanding Benzodiazepines Prescriptions: No Action albuterol sulfate 90 mcg/actuation HFA aerosol inhaler 2 puff inhalation Q4H PRN (Reason: wheezing) Jardiance 10 mg tablet 10 mg PO DAILY spironolactone 25 mg tablet 25 mg PO DAILY rabeprazole 20 mg tablet,delayed release (DR/EC) 10 mg PO Q24H Patient Comments: 1/2 tab by mouth daily metoprolol tartrate 50 mg tablet 50 mg PO BID Qty: 180 3RF alprazolam 1 mg tablet 1 mg PO QDAY PRN Eliquis 5 mg tablet 5 mg PO BID Qty: 360 3RF furosemide 40 mg tablet 40 mg PO DAILY Primary Care Provider: Dereck Mejia Referrals: Dereck Mejia, DO [Primary Care Provider] - As Needed Activity Restrictions/Additional Instructions: Just be aware that alcohol and benzodiazepines like alprazolam/Xanax, operate in the body at the same receptors. Therefore, taking them together is like doubling (or more) the dose of one of them; they are amplified by each other. It can be unsafe so generally speaking, try to avoid using them together at all. Print Language: Faroese Disposition Disposition: Home, Self Care
[2023-10-29 02:46] LABS: Absolute Lymphocyte Count 1.14 X10^3/uL (0.83-4.51); Absolute Neutrophil Count 2.9 X10^3/uL (2.0-7.7); Basophil# 0.05 X10^3/uL; Eosinophil# 0.37 X10^3/uL; Eosinophils% 7.3 % (0-5); Hematocrit 42.2 % (37-47); Hemoglobin 14.1 g/dL (12.0-15.0); Lymphocyte # 1.14 X10^3/ul (0.83-4.51); Lymphocyte % 22.6 % (19-41); Mean Corp Hgb Conc 33.4 g/dL (32-36); Mean Corpuscular Hgb 33.9 pg (27.0-32.0); Mean Corpuscular Volume 101.4 fL (81-99); Mean Platelet Vol. 10.4 fl (6.2-12.0); Monocyte# 0.56 X10^3/uL; Monocyte% 11.1 % (0-10); NRBC Flagged by Analyzer 0 % (0-5); Neutrophil % 57.6 % (47-70); Platelet Count 194 K/mm3 (150-450); RBC Distribution Width SD 48.1 fl (35.1-43.9); Red Blood Count 4.16 M/mm3 (4.2-5.4)
[2023-10-29 03:00] LABS: Anion Gap 11 (5-15); BUN 25 mg/dL (7-18); BUN/Creat Ratio 17.2 RATIO (10-20); Calcium,Total 8.9 mg/dL (8.5-10.1); Chloride 102 mmol/L (98-107); Creatinine, Serum 1.45 mg/dL (0.55-1.02); EST Glomerular Filtration Rate 40 mL/min (>60); Est Glom Filt Rate - Afr Amer 48 mL/min (>60); Estimated Creatinine Clearance 43.13 ml/min; Glucose 108 mg/dL (74-106); Potassium 3.3 mmol/L (3.5-5.1); Sodium Level 137 mmol/L (136-145)
== END 2023-10-29 03:44 | disposition home or self-care (01) ==
PROVIDERS: Emergency Provider Emergency Medicine; PCP Family Medicine; Visit Provider Emergency Medicine
DX: R40.4 Transient alteration of awareness (principal); I50.22 Chronic systolic (congestive) heart failure; I48.91 Unspecified atrial fibrillation; Z87.891 Personal history of nicotine dependence; F10.129 Alcohol abuse with intoxication, unspecified; Z79.01 Long term (current) use of anticoagulants; K21.9 Gastro-esophageal reflux disease without esophagitis; Z79.899 Other long term (current) drug therapy; F41.9 Anxiety disorder, unspecified; Z98.42 Cataract extraction status, left eye; Z98.41 Cataract extraction status, right eye; Y90.8 Blood alcohol level of 240 mg/100 ml or more
CPT/HCPCS: 80048; 82077; 85025; 93005; 99282; A4216

== ENCOUNTER → 2023-12-04 | Outpatient (CLI) | payer OTHER, SELFPAY ==
--- NOTE | 2023-12-04 12:52 | ECHOD_ITS ---
Reason For Study: ATRIAL FIBRILLATION Procedure This was a 2D Doppler, Color Flow transthoracic echocardiogram. Exam performed in department. Left Ventricle Normal LV size. Left ventricular systolic function is normal. The left ventricular ejection fraction is 60 %. No regional wall motion abnormalities noted. Right Ventricle Normal RV size. Normal systolic function. Atria Normal left atrium. Normal right atrium. Mitral Valve Bileaflet diffuse mitral valve thickening. There is mild to moderate mitral annular calcification. Mild-Moderate (1-2+) eccentric mitral valve insufficiency. Tricuspid Valve Normal tricuspid valve. Mild (1+) tricuspid valve insufficiency. Pulmonary artery systolic pressure is 37 mmHg. Aortic Valve Trisinus/trileaflet aortic valve. Mild focal aortic valve calcification. Peak aortic valve gradient 20 mmHg. Mean aortic valve gradient 12 mmHg. Mild (1+) aortic valve insufficiency. Pulmonic Valve Normal pulmonic valve. Mild (1+) pulmonic valve insufficiency. Great Vessels Normal aortic root. The pulmonary artery is normal size. Inferior vena cava collapse with respiration. Pericardium/Pleural No pericardial effusion. MMode/2D Measurements & Calculations LVIDd: 4.4 cm IVSd: 1.3 cm LVOT diam: 2.3 cm LVIDs: 3.0 cm LVPWd: 1.3 cm LVOT area: 4.1 cm2 RVDd: 4.1 cm FS: 32.4 % asc Aorta Diam: 3.6 cm LAV(MOD-bp): 71.2 ml LVAd ap4: 24.5 cm2 LAV(MOD-bp) Indexed: 40.1 ml/m2 LVLd ap4: 7.3 cm LAV(MOD-sp2): 55.4 ml EDV(MOD-sp4): 66.6 ml LAV(MOD-sp4): 75.2 ml EDV(sp4-el): 69.7 ml LVAs ap4: 14.6 cm2 LVLs ap4: 6.3 cm ESV(MOD-sp4): 29.3 ml ESV(sp4-el): 28.6 ml EF(MOD-sp4): 55.9 % EF(sp4-el): 59.0 % LVAd ap2: 26.3 cm2 SV(MOD-sp4): 37.3 ml SV(MOD-sp2): 39.8 ml LVLd ap2: 7.5 cm EDV(MOD-sp2): 74.9 ml EDV(sp2-el): 77.6 ml LVAs ap2: 16.2 cm2 LVLs ap2: 6.4 cm ESV(MOD-sp2): 35.1 ml ESV(sp2-el): 34.9 ml EF(MOD-sp2): 53.1 % SV(sp4-el): 41.1 ml Ao sinus diam: 3.[address] Junction: 2.9 cm LA dimension(2D): 3.5 cm LA A4 area: 24.0 cm2 RA A4 area: 15.4 cm2 TAPSE: 1.7 cm Time Measurements MV dec time: 0.28 sec Doppler Measurements & Calculations MV E max luke: 134.5 cm/sec Lat Peak E' Luke: 8.7 cm/sec Med Peak E' Luke: 5.8 cm/sec MV A max luke: 93.7 cm/sec E/E' lat: 15.4 E/E' med: 23.3 MV E/A: 1.4 MV V2 max: 153.2 cm/sec MV dec slope: 487.2 cm/sec2 Ao V2 max: 221.1 cm/sec MV max P.4 mmHg Ao max P.6 mmHg MV V2 mean: 87.9 cm/sec Ao V2 mean: 165.3 cm/sec MV mean P.4 mmHg Ao mean P.9 mmHg MV V2 VTI: 42.3 cm Ao V2 VTI: 49.0 cm MVA(VTI): 2.2 cm2 AV (velocity ratio): 0.45 LUIS(I,D): 1.9 cm2 LUIS(V,D): 1.8 cm2 LV V1 max: 94.7 cm/sec SV(LVOT): 91.6 ml PA V2 max: 91.8 cm/sec LV V1 max P.6 mmHg PA max PG (full): 1.6 mmHg LV V1 mean P.1 mmHg LV V1 mean: 68.8 cm/sec LV V1 VTI: 22.2 cm PI end-d luke: 149.0 cm/sec TR max luke: 291.1 cm/sec TR max P.9 mmHg ECHO/Echo Complete Interpretation Summary Normal LV size. Left ventricular systolic function is normal. The left ventricular ejection fraction is 60 %. Bileaflet diffuse mitral valve thickening. Mild-Moderate (1-2+) eccentric mitral valve insufficiency. Pulmonary artery systolic pressure is 37 mmHg. Mild focal aortic valve calcification. Ordering Physician: Hunter Peterson Referring Physician: Dereck Mejia Performed By: Rahel Lynn RDCS and Student
== END | disposition home or self-care (01) ==
LOC: CVS 12:50
PROVIDERS: PCP Family Medicine; Referring Provider Internal Medicine Cardiovascular Disease; Visit Provider Internal Medicine Cardiovascular Disease
DX: I48.0 Paroxysmal atrial fibrillation (principal)
CPT/HCPCS: 93306

== ENCOUNTER → 2025-02-13 | Outpatient (CLI) | payer OTHER, SELFPAY ==
[2025-02-13 17:12] LABS: Anion Gap 10 (5-15); BUN 16 mg/dL (4-19); BUN/Creat Ratio 14.9 RATIO (10-20); Calcium,Total 9.0 mg/dL (7.6-11.0); Carbon Dioxide 25.2 mmol/L (21.0-32.0); Chloride 105 mmol/L (98-108); Glucose 111 mg/dL (70-99); Potassium 4.8 mmol/L (3.3-5.1)
== END | disposition home or self-care (01) ==
PROVIDERS: PCP Family Medicine; Referring Provider Internal Medicine Cardiovascular Disease; Visit Provider Internal Medicine Cardiovascular Disease
DX: I10 Essential (primary) hypertension (principal)
CPT/HCPCS: 36415; 80048